=== PATIENT | female | born 1965 | race Two or more races ===

== ENCOUNTER 2020-01-21 09:14 | Outpatient (REF) | payer OTHER, SELFPAY ==
[2020-01-23 18:36] LABS: HPV mRNA E6/E7 rflx Not Detected (Not Detected)
== END 2020-01-21 09:15 | disposition home or self-care (01) ==
LOC: HO.LAB 09:14
PROVIDERS: Visit Provider Obstetrics & Gynecology
DX: Z01.419 Encounter for gynecological examination (general) (routine) without abnormal findings (principal); Z11.51 Encounter for screening for human papillomavirus (HPV)
CPT/HCPCS: 87624; 87625; 88142

== ENCOUNTER 2020-02-21 10:19 | Outpatient (REF) | payer OTHER, SELFPAY ==
--- NOTE | 2020-02-21 10:23 | MM_ITS ---
EXAMINATION: MM SCREENING DIGITAL BREAST TOMOSYNTHESIS, BILATERAL CLINICAL INFORMATION: Screening. Asymptomatic. The lifetime risk of breast cancer based on the Tyrer-Cuzick Model is 15.4%. COMPARISON: Mammography: February 15, 2019 and studies dating back to May 20, 2011 TECHNIQUE: Digital breast tomosynthesis is performed in both the craniocaudal and mediolateral oblique views along with computer-aided detection (CAD). Synthesized 2D images are generated from the tomosynthesis. FINDINGS: The breasts are almost entirely fatty (ACR BI-RADS breast composition Category a). There are no significant masses, abnormal calcifications, or other abnormalities. MM/MM tomosynthesis screening BI IMPRESSION: There are no significant changes from prior study. ASSESSMENT: BI-RADS 1: Negative RECOMMENDATION: Routine annual mammography screening. This patient's information was entered into a reminder system with a target due date for their next mammogram.
== END 2020-02-21 10:20 | disposition home or self-care (01) ==
LOC: HO.MAMMO 10:19
PROVIDERS: PCP Internal Medicine; Visit Provider Internal Medicine
DX: Z12.31 Encounter for screening mammogram for malignant neoplasm of breast (principal)
CPT/HCPCS: 77063; 77067

== ENCOUNTER 2020-03-21 09:45 | Outpatient (REF) | payer OTHER, SELFPAY | END 2020-03-21 09:46 | disposition home or self-care (01) | LOC: HO.LAB 09:45 | PROVIDERS: PCP Internal Medicine; Visit Provider Internal Medicine | DX: Z20.822 Contact with and (suspected) exposure to COVID-19 (principal) | CPT/HCPCS: 36415; C9803; U0003 ==

== ENCOUNTER 2020-03-25 12:17 | Outpatient (REF) | payer OTHER, SELFPAY ==
--- NOTE | 2020-03-25 12:23 | XR_ITS ---
EXAMINATION: XR CERVICAL SPINE XR LUMBAR SPINE CLINICAL INFORMATION: Cervicalgia. Lower back pain. COMPARISON: None. TECHNIQUE: AP, lateral, open-mouth, foraminal, and bilateral oblique views of the cervical spine. AP, lateral, and coned-down views of the lumbar spine. FINDINGS: Cervical Spine: Normal vertebral body alignment. The cervical lordosis is maintained. No acute fracture or subluxation. No loss of vertebral body height. Loss of intervertebral disc height with anterior endplate osteophytes at C5-C6 and C6-C7. No significant neural foraminal stenosis. No lytic or blastic osseous lesion. Unremarkable prevertebral soft tissues. Normal atlantoaxial alignment. Lumbar Spine: Normal vertebral body alignment. The lumbar lordosis is maintained. No acute fracture or subluxation. No loss of vertebral body height. Mild multilevel loss of intervertebral disc height with small anterior endplate osteophytes. Bilateral facet arthropathy at L5-S1. No abnormal soft tissue calcification. XR/XR cervical spine 3V IMPRESSION: CERVICAL SPINE: Moderate degenerative disc disease at C6-C7 with more mild degenerative disc disease at C5-C6. LUMBAR SPINE: Mild multilevel degenerative disc disease. Bilateral facet arthropathy at L5-S1.
--- NOTE | 2020-03-25 12:23 | XR_ITS ---
EXAMINATION: XR SHOULDER, RIGHT XR SHOULDER, LEFT CLINICAL INFORMATION: Right and left shoulder pain. COMPARISON: Right shoulder radiographs dated 12/22/2016. Left shoulder radiographs dated 12/22/2015. TECHNIQUE: AP, Grashey, axillary, and scapular Y views of the right and left shoulder. FINDINGS: Right Shoulder: No acute fracture or dislocation. Small acromioclavicular and glenohumeral marginal osteophytes, slightly more prominent when compared to the prior examination. No osseous erosion. No abnormal soft tissue calcification. Left Shoulder: No acute fracture or dislocation. Small, clavicular marginal osteophytes. No glenohumeral joint space narrowing or marginal osteophytes. No osseous erosion. No abnormal soft tissue calcification. XR/XR shoulder RT min 2V IMPRESSION: RIGHT SHOULDER: Mild acromioclavicular and glenohumeral osteoarthritis, slightly progressed when compared to the prior examination. LEFT SHOULDER: Mild acromioclavicular osteoarthritis, unchanged.
--- NOTE | 2020-03-25 12:23 | XR_ITS ---
EXAMINATION: XR CERVICAL SPINE XR LUMBAR SPINE CLINICAL INFORMATION: Cervicalgia. Lower back pain. COMPARISON: None. TECHNIQUE: AP, lateral, open-mouth, foraminal, and bilateral oblique views of the cervical spine. AP, lateral, and coned-down views of the lumbar spine. FINDINGS: Cervical Spine: Normal vertebral body alignment. The cervical lordosis is maintained. No acute fracture or subluxation. No loss of vertebral body height. Loss of intervertebral disc height with anterior endplate osteophytes at C5-C6 and C6-C7. No significant neural foraminal stenosis. No lytic or blastic osseous lesion. Unremarkable prevertebral soft tissues. Normal atlantoaxial alignment. Lumbar Spine: Normal vertebral body alignment. The lumbar lordosis is maintained. No acute fracture or subluxation. No loss of vertebral body height. Mild multilevel loss of intervertebral disc height with small anterior endplate osteophytes. Bilateral facet arthropathy at L5-S1. No abnormal soft tissue calcification. XR/XR lumbar spine 2-3V IMPRESSION: CERVICAL SPINE: Moderate degenerative disc disease at C6-C7 with more mild degenerative disc disease at C5-C6. LUMBAR SPINE: Mild multilevel degenerative disc disease. Bilateral facet arthropathy at L5-S1.
--- NOTE | 2020-03-25 12:23 | XR_ITS ---
EXAMINATION: XR SHOULDER, RIGHT XR SHOULDER, LEFT CLINICAL INFORMATION: Right and left shoulder pain. COMPARISON: Right shoulder radiographs dated 12/22/2016. Left shoulder radiographs dated 12/22/2015. TECHNIQUE: AP, Grashey, axillary, and scapular Y views of the right and left shoulder. FINDINGS: Right Shoulder: No acute fracture or dislocation. Small acromioclavicular and glenohumeral marginal osteophytes, slightly more prominent when compared to the prior examination. No osseous erosion. No abnormal soft tissue calcification. Left Shoulder: No acute fracture or dislocation. Small, clavicular marginal osteophytes. No glenohumeral joint space narrowing or marginal osteophytes. No osseous erosion. No abnormal soft tissue calcification. XR/XR shoulder LT min 2V IMPRESSION: RIGHT SHOULDER: Mild acromioclavicular and glenohumeral osteoarthritis, slightly progressed when compared to the prior examination. LEFT SHOULDER: Mild acromioclavicular osteoarthritis, unchanged.
== END 2020-03-25 12:18 | disposition home or self-care (01) ==
LOC: HO.XRAY 12:17
PROVIDERS: PCP Internal Medicine; Visit Provider Internal Medicine
DX: M54.2 Cervicalgia (principal); M25.511 Pain in right shoulder; M25.512 Pain in left shoulder; M54.5 Low back pain
CPT/HCPCS: 72040; 72100; 73030

== ENCOUNTER → 2020-07-16 15:03 | Outpatient (BNVA) | payer OTHER, SELFPAY | PROVIDERS: PCP Internal Medicine; Visit Provider Nurse Practitioner Family | DX: Z13.89 Encounter for screening for other disorder (principal) | CPT/HCPCS: 99202 ==

== ENCOUNTER 2020-09-11 10:26 | Outpatient (REF) | payer OTHER, SELFPAY ==
[2020-09-11 11:45] LABS: MANUAL DIFF FLAG NO
[2020-09-11 11:58] LABS: Alanine Aminotransferase 23 U/L (0-31); Albumin Level 4.2 g/dL (3.5-5.0); Alkaline Phosphatase 118 U/L (39-117); Anion Gap 13 (12-20); Aspartate Amino Transferase 19 U/L (5-31); Bilirubin Total 0.4 mg/dL (0.0-1.0); Blood Urea Nitrogen 17 mg/dL (9-16); C Reactive Protein 0.83 mg/dL (< or = 0.50); Calcium 9.4 mg/dL (8.4-10.2); Carbon Dioxide 26 mmol/L (22-29); Chloride 104 mmol/L (96-108); Estimated Glomerular Filt Rate > 60; Glucose Random 149 mg/dL (60-115); Potassium 5.1 mmol/L (3.3-5.1); Sodium 138 mmol/L (135-145); Total Protein 7.2 g/dL (6.5-8.0)
[2020-09-11 12:06] LABS: Basophils Percent Auto 0.4 % (0-2); Eosinophils Absolute Auto 0.4 X10*3/uL (0.0-0.4); Hematocrit 42.9 % (37-47); Hemoglobin 14.3 g/dl (12.0-16.0); Imm Gran Abs Auto 0.01 X10*3/uL (0.00-0.03); Imm Gran Pct Auto 0.1 % (0.0-0.4); Lymphocytes Absolute Auto 2.1 X10*3/uL (1.2-4.9); Lymphocytes Percent Auto 30.3 % (20-40); Mean Corpuscular HGB Conc 33.3 g/dl (31.0-35.0); Mean Corpuscular Volume 89.9 fL (80-98); Mean Platelet Volume 12.8 fL (9.4-12.3); Monocytes Absolute Auto 0.4 X10*3/uL (0.1-1.2); Monocytes Percent Auto 5.5 % (2-11); Neutrophils Absolute Auto 4.1 X10*3/uL (2.0-8.3); Neutrophils Percent Auto 57.7 % (45-73); Platelet Count 216 X10*3/uL (160-400); Red Blood Count 4.77 X10*6/uL (4.20-5.50); Red Cell Distribution Width 12.7 % (11.0-16.0)
[2020-09-11 13:15] LABS: Erythrocyte Sedimentation Rate 16 MM/HR (0-20)
[2020-09-12 15:17] LABS: Cyclic Citrullinated Peptide <16 UNITS
[2020-09-17 14:37] LABS: HLA B27 Negative (Negative)
== END 2020-09-11 10:27 | disposition home or self-care (01) ==
LOC: HO.LAB 10:26
PROVIDERS: PCP Internal Medicine; Visit Provider Internal Medicine
DX: M19.011 Primary osteoarthritis, right shoulder (principal); M19.012 Primary osteoarthritis, left shoulder; M50.30 Other cervical disc degeneration, unspecified cervical region; M51.36 Other intervertebral disc degeneration, lumbar region
CPT/HCPCS: 36415; 80053; 85025; 85652; 86140; 86200; 86812

== ENCOUNTER 2023-06-02 16:15 | Emergency (ER) | payer MEDICAID, SELFPAY ==
--- NOTE | ~2023-06-02 | CT_ITS ---
EXAMINATION: CT CHEST WITHOUT CONTRAST CLINICAL INFORMATION: Left-sided rib pain COMPARISON: Chest radiograph earlier today TECHNIQUE: Multidetector volumetric CT imaging of the chest was done. Axial MIP volume rendering provided. Sagittal and coronal reformatted images were obtained. This CT examination was performed using dose optimization techniques as appropriate, variously including the following: *Automated exposure control *Adjustment of mA and/or kV according to patient size (this includes techniques or standardized protocols for targeted exams where dose is matched to indication/reason for exam; i.e. extremities or head) *Use of iterative reconstruction technique DLP: 278 mGy-cm FINDINGS: LUNGS: There is a 3 mm right upper lobe nodule (5:184) which represents some mucous inspissated within a bronchus. Diffuse peribronchial thickening is present The lungs are clear with no evidence of inflammation or suspicious nodules. MEDIASTINUM: The mediastinum is normal. CORONARY ARTERY CALCIFICATION: None visualized on this study. PLEURA: There is no pleural effusion. No pleural mass or thickening. AXILLA: No lymphadenopathy. UPPER ABDOMEN: Spleen is enlarged at 12.4 cm. Gallstones are present in the partially visualized gallbladder. These have been seen on prior imaging exams. OSSEOUS STRUCTURES: There is a nondisplaced fracture of the left seventh anterolateral rib (5:406). This is most apparent when one scrolls through the images. No other rib fractures are seen. CT/CT chest wo IV con IMPRESSION: 1. Nondisplaced left seventh anterolateral rib fracture. 2. Incidental note made of cholelithiasis and mild splenomegaly. Fleischner guidelines were followed.
--- NOTE | ~2023-06-02 | XR_ITS ---
EXAMINATION: XR CHEST CLINICAL INFORMATION: SOB and fall. COMPARISON: None available. TECHNIQUE: Frontal view of the chest was obtained. FINDINGS: No significant abnormality is noted involving the heart, lungs, mediastinum, bony thorax or soft tissues. XR/XR chest 1V IMPRESSION: Unremarkable chest examination.
--- NOTE | 2023-06-02 17:22 | ED_ITS ---
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 Patient reports that she was walking her dogs just prior to arrival. She states that the dog's tried to run after another dog This caused the patient to lunge forward and lose her balance. She landed on the left side of her chest on the pavement She complains that she can not catch her breath completely She also injured both of her knees She denies hitting her head or losing consciousness She is not anticoagulated No other complaints or concerns at this time Related Data Home Medications Medication Instructions Recorded Confirmed betamethasone dipropionate 0.05 % applic topical BID PRN 01/21/20 10/01/20 topical cream hydrocortisone 0.5 % topical cream applic topical BID PRN 01/21/20 10/01/20 hydroxyzine HCl 25 mg tablet 25 mg PO Q8H PRN itch 01/21/20 10/01/20 acetaminophen 500 mg tablet 500 mg PO Q6H PRN pain 03/18/20 10/01/20 Previous Rx's Medication Instructions Recorded gabapentin 100 mg capsule 100 mg PO TID 30 days #90 caps 06/24/20 omeprazole 40 mg capsule,delayed 40 mg PO DAILY 30 days #30 caps 06/24/20 release tizanidine 2 mg tablet 2 mg PO BEDTIME #30 tabs 07/16/20 tramadol 50 mg tablet 50 mg PO Q6H PRN pain #12 tabs 06/02/23 Allergies Allergy/AdvReac Type Severity Reaction Status Date / Time hazelnut [HAZELNUT] Allergy Unknown ANGIOEDEMA, Verified 06/02/23 17:23 NUMBNESS ibuprofen [From MOTRIN] Allergy Unknown RASH, Verified 06/02/23 17:23 FACIAL SWELLING, anaphylaxis, face swelling peanut [PEANUT] Allergy Unknown SWELLING Verified 06/02/23 17:23 Review of Systems Constitutional: Constitutional: Denies chills, Denies fever(s), Denies frequent falls and Denies headache(s) Eyes: Eyes: Denies blurry vision ENT: Denies headache(s) Cardiovascular: Cardiovascular: Reports chest pain and Reports dyspnea Respiratory: Respiratory: Denies cough and Reports dyspnea Gastrointestinal: Gastrointestinal: Denies abdominal pain, Denies nausea and Denies vomiting Musculoskeletal: Musculoskeletal: Denies back pain Integumentary/Breasts: Skin/Breast: Denies rash Neurologic: Denies frequent falls and Denies headache(s) [facility] Past Medical History Medical History (Updated 06/02/23 @ 21:03 by Royer Smith) GERD without esophagitis Left lateral epicondylitis Bilateral acromioclavicular joint arthritis Lumbar degenerative disc disease Degenerative disc disease, cervical Obesity (BMI 30-39.9) Surgical History History of section History of colonoscopy History of tubal ligation Family History Family History Father No problems noted. Mother Breast cancer Uterine cancer Maternal Aunt Breast cancer Maternal Grandmother Breast cancer Social History Social History Housing: Apartment Alcohol intake: never Patient Tobacco Use Status: Never used Tobacco Second Hand Smoke Exposure: No Advance Directives: No Advance Directives Information Provided: No service: No Current occupational status: unemployed and disabled Sexual orientation: Straight/Heterosexual Gender identity: Female Physical Exam ED Vital Signs: Vital Signs - 24 hr 06/02/23 17:23 Temperature 97.6 F Pulse Rate 80 Respiratory Rate 16 Blood Pressure 159/83 H Pulse Oximetry 99 Oxygen Delivery Method Room Air BMI result Body Mass Index 32.3 Const General: healthy appearing, comfortable, no acute distress, alert and awake Nutritional Appearance: well nourished Orientation/consciousness: patient oriented x3 HENMT Head: Yes normocephalic and Yes atraumatic Eyes Eyelids: Yes eyelids normal Conjunctivae: conjunctivae normal Sclerae: sclerae normal Corneas: corneas normal Pupils: Equal, round and reactive pupils present EOM: EOMs intact bilaterally Neck Neck: Yes full ROM Chest Other: Tenderness in the left anterior chest wall at the level of the 7th through 9th ribs in the anterior axillary line. No overlying bruising, hematoma or wounds Chest palpation & inspection: normal inspection of the chest and no crepitus Resp Effort & Inspection: normal respiratory effort, able to speak in complete se ntences, no audible wheezes and not labored Auscultation: clear to auscultation bilaterally GI Inspection: No distended Palpation (GI): Soft to palpation, not firm, nontender, no guarding and not rigid Skin General skin exam: elasticity normal Neuro General: patient oriented x3 Cranial nerves: Yes Equal, round and reactive pupils present and Yes Bilaterally intact EOM present Cognition (Neuro): normal cognition Extrem Other: Moving all extremities well without any obvious deformities Course Course Course Narrative: This is an RME: Additional HPI, ROS, PE not included below will be deferred to primary provider. 57 year old female presents s/p fall onto left side of chest. Was walking the dog and the dog started fighting another dog and pulled her causing her to land on left chest. Plan- imaging Medical Decision Making Medical Decision Making MDM Narrative: Patient is quite well appearing, she is slightly hypertensive and tachycardic likely related to her degree of pain. Her x-ray of the chest did not show any evidence of pneumothorax. A CT scan was ordered in triage which shows a nondisplaced fracture of the left 7th anterior lateral rib. There is incidental finding of gallstones. Will treat the patient's discomfort with Zofran and tramadol Differential Diagnosis Differential Diagnoses: The differential diagnosis associated with the presentation includes Contusion Rib fracture Pneumothorax Pulmonary contusion Independent Interpretation I performed an independent interpretation of an: Plain X-Ray (No pneumothorax) and CT Scan (Agree with Radiology interpretation, nondisplaced left 7th rib fracture) Radiology Impression Discussion of test interpretation with radiology: I have reviewed the radiologist's reading. (Unremarkable chest examination) Radiologist Impression: Nondisplaced left anterior lateral rib fracture Discharge Plan Discharge Clinical Impression: Left rib fracture Qualifiers: Encounter type: initial encounter Rib fracture type: single rib Fracture type: closed Qualified Code(s): S22.32XA - Fracture of one rib, left side, initial encounter for closed fracture Patient Disposition: Home, Self-Care Instructions: Rib Fracture (ED) Additional Instructions: You have 1 rib fracture to the 7th rib in the area of your pain. This is nondisplaced and will heal well on its own Take Tylenol as needed for pain. You may use tramadol for more severe breakthrough pain This may make you sleepy, do not drink alcohol or drive after taking it Follow-up with your primary doctor Return for new or worsening symptoms Prescriptions: New tramadol 50 mg tablet 50 mg PO Q6H PRN (Reason: pain) Qty: 12 0RF No Action gabapentin 100 mg capsule 100 mg PO TID 30 Days Qty: 90 3RF omeprazole 40 mg capsule,delayed release(DR/EC) 40 mg PO DAILY 30 Days Qty: 30 3RF betamethasone dipropionate 0.05 % cream topical BID PRN hydrocortisone 0.5 % cream topical BID PRN hydroxyzine HCl 25 mg tablet 25 mg PO Q8H PRN (Reason: itch) acetaminophen 500 mg tablet 500 mg PO Q6H PRN (Reason: pain) tizanidine 2 mg tablet 2 mg PO BEDTIME Qty: 30 0RF Rx Instructions: start with 1/2 tab, as medication can be sedating
[2023-06-02 17:23] VITALS: BP 159/83; PULSE 80; RESP 16; TEMP 36.4; O2SAT 99; BMI 32.3
[2023-06-02] MEDS: Ondansetron ODT 4 MG TAB.RAPDIS TRANSLINGU (21:22)
[2023-06-02] MEDS: traMADoL HCL 50 MG TABLET PO (21:22)
[2023-06-02 21:26] VITALS: BP 131/88; PULSE 82; RESP 16; TEMP 36.4; O2SAT 96
[2023-06-02 22:25] VITALS: BP 131/88; PULSE 82; RESP 16; TEMP 36.4
== END 2023-06-02 22:25 | disposition home or self-care (01) ==
PROVIDERS: Emergency Provider Internal Medicine
DX: S22.32XA Fracture of one rib, left side, initial encounter for closed fracture (principal); R07.89 Other chest pain; W01.10XA Fall on same level from slipping, tripping and stumbling with subsequent striking against unspecified object, initial encounter; Y93.K1 Activity, walking an animal; Y92.480 Sidewalk as the place of occurrence of the external cause; Y99.8 Other external cause status
CPT/HCPCS: 71045; 71250; 99284

== ENCOUNTER 2023-06-09 12:23 | Outpatient (AMB) | payer OTHER, SELFPAY ==
[2023-06-09 12:29] VITALS: BP 142/84; BMI 31.9
--- NOTE | 2023-06-09 12:29 | A.OFFPC_ITS ---
Vital Signs 06/09/23 12:29 Height 5 ft 3 in Weight 180 lb BMI 31.9 BP 142/84 H Blood Pressure Location Lt brachial Position Sitting Intake Visit Reasons: New patient, Establishing care Intake Note: New patient, [facility] follow up 06/01 fractured rib due to fall Home Care Provider Required: No Accompanied by: Self / Same As Patient Allergies tramadol Allergy (Severe, Verified 06/09/23 12:53) rash hazelnut [HAZELNUT] Allergy (Unknown, Verified 06/09/23 12:53) ANGIOEDEMA, NUMBNESS ibuprofen [From MOTRIN] Allergy (Unknown, Verified 06/09/23 12:53) RASH, FACIAL SWELLING, anaphylaxis, face swelling peanut [PEANUT] Allergy (Unknown, Verified 06/09/23 12:53) SWELLING Medication List - Last Reconciled 06/09/23 by Kimmie Wisdom MD acetaminophen 500 mg PO Q6H PRN omeprazole 40 mg PO DAILY 30 days Tobacco use date assessed: 06/09/23 Dental Screening Dental Screen Date: 06/09/23 Did you have a dental visit in the last 12 months?: Yes Did you have a dental problem in the last 6 months where you did not have access to dental care?: No Was dental information given to patient?: Patient has dentist HPI HPI Comments History of Present Illness Details This is a 57-year-old female with GERD without esophagitis and mild persistent asthma that comes today as hospital discharge follow-up with discharge date 06/02/2023 due to left rib fracture secondary to trauma. Chest x- ray showed no pneumothorax at the hospital and chest CT showed nondisplaced left 7 rib fracture with incidental cholelithiasis. Was given tramadol but developed a rash. I will give 7 days for oxycodone which he is aware can cause addiction and sedation. This will not be refill. She is able to take a deep breath even though she is in pain. GERD stable with PPIs. She is wheezing and has a dry cough due to asthma. Will order rescue inhaler. Also has some allergic rhinitis and will order cetirizine for allergies. [facility] Medical History (Updated 06/09/23 @ 13:36 by Kimmie Wisdom MD) GERD without esophagitis Left lateral epicondylitis Bilateral acromioclavicular joint arthritis Lumbar degenerative disc disease Degenerative disc disease, cervical Obesity (BMI 30-39.9) Surgical History History of colonoscopy History of tubal ligation History of section Family History Father No problems noted. Mother Breast cancer Uterine cancer Maternal Aunt Breast cancer Maternal Grandmother Breast cancer Social History Housing: Apartment Alcohol intake: never Patient Tobacco Use Status: Never used Tobacco e-Cigarette/Vaping Use: Never Used Second Hand Smoke Exposure: No service: No Current occupational status: unemployed Sexual orientation: Straight/Heterosexual Gender identity: Female Cognitive needs: No Hearing needs: No Vision needs: Yes Questionnaire PHQ-9 Over the last 2 weeks, how often have you been bothered by any of the following problems? 1. Little interest or pleasure in doing things: several days 2. Feeling down, depressed, or hopeless: nearly every day 3. Trouble falling or staying asleep, or sleeping too much: nearly every day 4. Feeling tired or having little energy: nearly every day 5. Poor appetite or overeating: not at all 6. Feeling bad about yourself - or that you are a failure or have let yourself or your family down: not at all 7. Trouble concentrating on things, such as reading the newspaper or watching television: not at all 8. Moving or speaking so slowly that other people could have noticed. Or the opposite - being so fidgety or restless that you have been moving around a lot more than usual: not at all 9. Thoughts that you would be better off or of hurting yourself in some way: not at all Total score: 10 Depression Screening Interpretation: Positive Depression Screening Done: Yes 05632 - PHQ-9 Billing: Yes Source: Developed by Drs. Bin Carpenter, Cari Burk, Elieser Yanes and colleagues, with an educational chanell from [employer] & other things you bake. Thrive Questionnaire Date Thrive assessed: 06/09/23 I am a: Patient Within the past 12 months, did the food you bought not last and you didn't have the money to get more?: Never true Within the past 12 months, did you worry whether your food would run out before you got money to buy more?: Never true Do you have trouble paying for medicines?: No Do you have trouble getting transportation to medical appointments?: No Do you have trouble paying your heating and electricity bill?: No Do you have trouble taking care of your child, family member or friend?: No Do you have trouble with day-to-day activities such as bathing, preparing meals, shopping, managing finances, etc.?: No Are you currently unemployed and looking for a job?: No Are you interested in more education?: No Please select the resources that you would like help with: None Currently or been in a relationship where the following occur: no concerns reported THRIVE Score: 0 AUDIT C Alcohol Use Questionnaire (AUDIT-C) 1. How often do you have a drink containing alcohol?: Never Total Score: 0 Score Reviewed/Action Taken: No FAIZA-7 AMB Questionnaire FAIZA-7 Date FAIZA - 7 assessed: 06/09/23 Feeling nervous, anxious, or on edge: 3 = Nearly every day Not being able to stop or control worryin = Nearly every day Worrying too much about different things: 3 = Nearly every day Trouble relaxin = More than half the days Being so restless that it is hard to sit still: 0 = Not at all Becoming easily annoyed or irritable: 1 = Several days Feeling afraid as if something awful might happen: 1 = Several days Total FAIZA-7 score (0-4 normal; 5-9 mild; 10-14 moderate; 15-21 severe): 13 Source: Developed by Drs. Bin Carpenter, Cari Burk, Elieser Yanes and colleagues, with an educational chanell from [employer] & other things you bake. FAIZA-7 Assessment Billing FAIZA-7 Assessment Tool: FAIZA-7 Assessment 67773 Review of Systems Const All systems reviewed & are unremarkable except as noted in HPI and below Eyes Reports no additional complaints, Denies change in vision and Denies other visual disturbances Card Denies chest pain at rest, Denies chest pain with activity, Denies edema, Denies irregular heart rhythm, Denies claudication, Denies dyspnea, Denies dyspnea on exertion, Denies orthopnea, Denies paroxysmal nocturnal dyspnea and Denies slow heart rate Resp Denies cough, Denies dyspnea and Denies dyspnea on exertion Physical exam (Primary Care) Vital Signs: Last Vital Signs BP 142/84 H 06/09/23 12:29 BMI result Body Mass Index 31.9 Tobacco/Smoking Status: Tobacco use Status Tobacco use date assessed 06/09/23 06/09/23 12:42 Patient Tobacco Use Status Never used Tobacco 06/09/23 12:31 e-Cigarette/Vaping Use Never Used 06/09/23 12:42 Depression Screening Interpretation: Positive Thrive Assessment: Date of Thrive Assessment Date Thrive assessed 06/09/23 06/09/23 12:42 Currently or been in a relationship where the following occur: no concerns reported Resp Effort & Inspection: normal respiratory effort Auscultation: clear to auscultation bilaterally Cardio Jugular venous distension: no JVD Rate: regular rate Rhythm: regular rhythm Heart sounds: S1 normal heart sound present and S2 normal heart sound present Extrem General: Yes full ROM Psych Appearance: grossly normal Assessment and Plan Assessment & Plan (1) Hospital discharge follow-up: Code(s): Z09 - Encounter for follow-up examination after completed treatment for conditions other than malignant neoplasm Plan: Discharge date 06/02/2023 due to left rib fracture. This was shown in chest CT. Given tramadol that turned out to be allergic to. Still in pain. (2) Rib fracture: Code(s): S22.39XA - Fracture of one rib, unspecified side, initial encounter for closed fracture Plan: Start oxycodone for a week only. (3) Mild persistent asthma, uncomplicated: Code(s): J45.30 - Mild persistent asthma, uncomplicated Plan: Use rescue inhaler as needed. (4) Cholelithiasis: Code(s): K80.20 - Calculus of gallbladder without cholecystitis without obstruction Plan: Ultrasound of the abdomen ordered. (5) GERD without esophagitis: Code(s): K21.9 - Gastro-esophageal reflux disease without esophagitis Plan: Continue PPIs. (6) Seasonal allergic rhinitis due to pollen: Code(s): J30.1 - Allergic rhinitis due to pollen Plan: Start cetirizine as needed. Orders: Orders US abdomen complete Today K80.20 - Calculus of gallbladder without cholecystitis without obstruction Medications: New oxycodone Partial Fill upon patient request. 5 mg PO Q8H 7 days PRN 20 tabs 0RF pain Ventolin HFA 90 mcg/actuation (albuterol sulfate) 2 puffs inhalation Q6H 30 days PRN 8 grams 1RF shortness of breath or wheezing NS J45.30 - Mild persistent asthma, uncomplicated Coding Level of Care Code TCM Mod MDM <= 7 Days Diagnoses Hospital discharge follow-up Z09 Rib fracture S22.39XA Mild persistent asthma, uncomplicated J45.30 Cholelithiasis K80.20 GERD without esophagitis K21.9 Seasonal allergic rhinitis due to pollen J30.1 Additional Codes FAIZA-7 Assessment Billing - FAIZA-7 Assessment Tool: FAIZA-7 Assessment 80222 ([id number]) Time Spent (min) 22
== END 2023-06-09 13:00 | disposition home or self-care (01) ==
PROVIDERS: Visit Provider Internal Medicine
DX: S22.32XA Fracture of one rib, left side, initial encounter for closed fracture (principal); K80.20 Calculus of gallbladder without cholecystitis without obstruction; J45.30 Mild persistent asthma, uncomplicated; K21.9 Gastro-esophageal reflux disease without esophagitis; J30.1 Allergic rhinitis due to pollen
CPT/HCPCS: 99214

== ENCOUNTER 2023-06-22 08:07 | Outpatient (REF) | payer OTHER, SELFPAY ==
--- NOTE | ~2023-06-22 | US_ITS ---
EXAMINATION: US ABDOMEN COMPLETE CLINICAL INFORMATION: Calculus of gallbladder without cholecystitis without obstruction. COMPARISON: CT chest 06/02/2023. Ultrasound abdomen 07/27/2018. TECHNIQUE: Real-time imaging of the abdominal viscera. FINDINGS: PANCREAS: Normal. ABDOMINAL AORTA: The proximal, mid, and distal segments are normal in caliber. INFERIOR VENA CAVA: Visualized portions are normal. LIVER: The liver is normal in size. The liver contour is normal. Parenchymal echogenicity is normal. No focal hepatic lesion. There is no intrahepatic biliary duct dilatation seen. GALLBLADDER: Wall echo shadow complex consistent with numerous gallstones. No gallbladder wall thickening or pericholecystic fluid. COMMON BILE DUCT: Normal in caliber measuring 0.3 cm in diameter. RIGHT KIDNEY: Normal. No hydronephrosis. No renal calculi or focal parenchymal lesions. The kidney measures 10.0 cm in maximum dimension. LEFT KIDNEY: Normal. No hydronephrosis. No renal calculi or focal parenchymal lesions. The kidney measures 9.7 cm in maximum dimension. SPLEEN: Normal. The spleen measures 9.2 cm in maximum dimension. FREE FLUID: None. US/US abdomen complete IMPRESSION: Cholelithiasis without evidence of acute cholecystitis.
== END 2023-06-22 08:08 | disposition home or self-care (01) ==
LOC: HO.US 08:07
PROVIDERS: PCP Internal Medicine; Visit Provider Internal Medicine
DX: K80.20 Calculus of gallbladder without cholecystitis without obstruction (principal)
CPT/HCPCS: 76700

== ENCOUNTER 2023-07-05 13:17 | Outpatient (AMB) | payer OTHER, SELFPAY ==
--- NOTE | 2023-07-05 13:18 | A.OFFVIS_ITS ---
Vital Signs 07/05/23 13:24 Height 5 ft 3 in Weight 186 lb BMI 32.9 BP 136/71 Blood Pressure Location Lt brachial Position Sitting Pulse 69 Intake Visit Reasons: Calculus of gallbladder Intake Note: Patient referred by PCP Dr. Basil Wisdom for calculus of gallbladder. Patient c/o: on and off abd pain that gets worse after eating certain foods. ABD US: 06-22-2023. Talent Advisor Required: No Accompanied by: Celia daughter in law Allergies tramadol Allergy (Severe, Verified 07/05/23 13:22) rash hazelnut [HAZELNUT] Allergy (Unknown, Verified 07/05/23 13:22) ANGIOEDEMA, NUMBNESS ibuprofen [From MOTRIN] Allergy (Unknown, Verified 07/05/23 13:22) RASH, FACIAL SWELLING, anaphylaxis, face swelling peanut [PEANUT] Allergy (Unknown, Verified 07/05/23 13:22) SWELLING HPI Comments Details: Patient presents with her [id number] with a complaint of epigastric/right upper quadrant pain times many years time , related to diet of fatty foods. She has had extensive workup for this including recent sonogram demonstrated cholelithiasis. Patient otherwise has regular bowel habits. She has never been jaundiced before. Chart was reviewed and patient evaluated. Past surgical history [facility] Medical History GERD without esophagitis Left lateral epicondylitis Bilateral acromioclavicular joint arthritis Lumbar degenerative disc disease Degenerative disc disease, cervical Obesity (BMI 30-39.9) Surgical History History of colonoscopy History of tubal ligation History of section Family History Father No problems noted. Mother Breast cancer Uterine cancer Maternal Aunt Breast cancer Maternal Grandmother Breast cancer Social History Housing: Apartment Alcohol intake: never Patient Tobacco Use Status: Never used Tobacco e-Cigarette/Vaping Use: Never Used Second Hand Smoke Exposure: No service: No Current occupational status: unemployed Sexual orientation: Straight/Heterosexual Gender identity: Female Cognitive needs: No Hearing needs: No Vision needs: Yes Physical Exam Vital Signs: Last Vital Signs Pulse 69 07/05/23 13:24 BP 136/71 07/05/23 13:24 BMI result Body Mass Index 32.9 Chest Other: Chest breath sounds bilaterally, HS 1 in 2 GI Other: Abdomen is soft, corpulent, benign Assessment & Plan Assessment & Plan (1) Recurrent biliary colic: Code(s): K80.50 - Calculus of bile duct without cholangitis or cholecystitis without obstruction Category: Surgical (2) Cholelithiasis: Code(s): K80.20 - Calculus of gallbladder without cholecystitis without obstruction Category: Surgical Plan Risks, benefits, alternatives laparoscopic possible open cholecystectomy reviewed with the patient and included but not limited to bleeding, infection, recurrence of symptoms, numbness, pain, scarring, bowel or bile duct injury or leak and the patient wishes to proceed. All questions answered. Arrangements were made for this. Coding Level of Care Code New Pt Level 5 (81680) Diagnoses Recurrent biliary colic K80.50 Cholelithiasis K80.20
[2023-07-05 13:24] VITALS: BP 136/71; PULSE 69; BMI 32.9
== END 2023-07-05 13:30 | disposition home or self-care (01) ==
PROVIDERS: PCP Internal Medicine; Referring Provider Internal Medicine; Visit Provider Surgery
DX: K80.50 Calculus of bile duct without cholangitis or cholecystitis without obstruction (principal); K80.20 Calculus of gallbladder without cholecystitis without obstruction
CPT/HCPCS: 99204

== ENCOUNTER → 2023-07-05 13:17 | Outpatient (BNVA) | payer OTHER, SELFPAY | PROVIDERS: PCP Internal Medicine; Referring Provider Internal Medicine; Visit Provider Surgery | DX: K80.20 Calculus of gallbladder without cholecystitis without obstruction (principal); K80.50 Calculus of bile duct without cholangitis or cholecystitis without obstruction | CPT/HCPCS: 99202 ==

== ENCOUNTER 2023-07-21 07:46 | Day surgery (SDC) | payer OTHER, SELFPAY ==
[2023-07-19 11:19] VITALS: BMI 32.9
--- NOTE | 2023-07-20 15:17 | MHC.SHP ---
Pre-Procedural Eval Section A - 24 Hr Update-Section A only Date of Service: 07/20/23 The patient is an INPATIENT: No Changes since office visit: No Cold of Flu in the past 2 weeks, No New Medical Problems, No Changes in Medication and No Patient answered all questions Section B - Complete if H&P > 30 days Chief Complaint: Calculus bile duct and gallbladder w/ cholangitis, Allergies: Allergies Allergy/AdvReac Type Severity Reaction Status Date / Time hazelnut [HAZELNUT] Allergy Severe ANGIOEDEMA, Verified 07/19/23 11:19 NUMBNESS ibuprofen [From MOTRIN] Allergy Severe RASH, Verified 07/19/23 11:19 FACIAL SWELLING, anaphylaxis, face swelling peanut [PEANUT] Allergy Severe SWELLING Verified 07/19/23 11:19 tramadol Allergy Severe rash Verified 07/05/23 13:22 Plan I have reviewed the history and physical and performed a pertinent physical examination on my patient. No changes have occurred unless specified. Time Spent With Patient Time: Total time managing care of this patient today ____ minutes.
[2023-07-21] VITALS (10 sets, daily range): BP systolic 117–155; BP diastolic 50–81; PULSE 60–79; RESP 10–18; TEMP 36.1–36.6; O2SAT 80–100; BMI 32.4
[2023-07-21] MEDS: Lactated Ringers 1,000 ML 100 ML IVCONT (08:24)
--- NOTE | 2023-07-21 09:00 | HO.ANESPROP2 ---
Documented by User: Ching Solorio NP 07/20/23 09:27 HPI - Anesthesia Eval Consult details Narrative: 57yo F for Cholecystectomy Laparoscopic possible open PMFSH Active Problems Active Problems: All Active Problems Recurrent biliary colic (Acute) Seasonal allergic rhinitis due to pollen (Acute) Rib fracture (Acute) Hospital discharge follow-up (Acute) Mild persistent asthma, uncomplicated (Acute) Cholelithiasis (Acute) Osteoarthritis of shoulders, bilateral (Acute) Asthma (Acute) Well woman exam with routine gynecological exam (Acute) GERD without esophagitis (Acute) Left lateral epicondylitis (Acute) Bilateral acromioclavicular joint arthritis (Acute) Lumbar degenerative disc disease (Acute) Degenerative disc disease, cervical (Acute) Obesity (BMI 30-39.9) (Acute) Past Medical History Medical History Arthritis Asthma GERD without esophagitis Left lateral epicondylitis Bilateral acromioclavicular joint arthritis Lumbar degenerative disc disease Degenerative disc disease, cervical Obesity (BMI 30-39.9) Family History Family History Father No problems noted. Mother Breast cancer Uterine cancer Maternal Aunt Breast cancer Maternal Grandmother Breast cancer Surgical History Surgical History History of colonoscopy History of tubal ligation History of section Social History Social History Housing: Apartment Alcohol intake: never Patient Tobacco Use Status: Never used Tobacco e-Cigarette/Vaping Use: Never Used Second Hand Smoke Exposure: No Use of substances other than those prescribed or required for medical reasons: No Are you DNR?: No Advance Directives: No Advance Directives Information Provided: Yes service: No Current occupational status: unemployed Sexual orientation: Straight/Heterosexual Gender identity: Female Cognitive needs: No Hearing needs: No Vision needs: Yes Meds Allergies Allergy/AdvReac Type Severity Reaction Status Date / Time hazelnut [HAZELNUT] Allergy Severe ANGIOEDEMA, Verified 07/21/23 08:04 NUMBNESS ibuprofen [From MOTRIN] Allergy Severe RASH, Verified 07/21/23 08:04 FACIAL SWELLING, anaphylaxis, face swelling peanut [PEANUT] Allergy Severe SWELLING Verified 07/21/23 08:04 tramadol Allergy Severe rash Verified 07/21/23 08:04 Home Medications ?Medication ?Instructions ?Recorded ?Confirmed ?Last Taken ?Type acetaminophen 500 mg tablet 500 mg PO Q6H PRN pain 03/18/20 07/21/23 Unknown History Exam Height,Weight and Vital Signs: Height 5 ft 3 in Weight 84.368 kg Assessment and Plan Assessment Anesthesia Assessment: Chart Reviewed Documented by User: Priyanka Prieto DO 07/21/23 09:24 [facility] Past Medical History Medical History Arthritis Asthma GERD without esophagitis Left lateral epicondylitis Bilateral acromioclavicular joint arthritis Lumbar degenerative disc disease Degenerative disc disease, cervical Obesity (BMI 30-39.9) Family History Family History Father No problems noted. Mother Breast cancer Uterine cancer Maternal Aunt Breast cancer Maternal Grandmother Breast cancer Family history of problems with anesthesia: No Surgical History Surgical History History of colonoscopy History of tubal ligation History of section History of Problems with Anesthesia: No Social History Social History Housing: Apartment Alcohol intake: never Patient Tobacco Use Status: Never used Tobacco e-Cigarette/Vaping Use: Never Used Second Hand Smoke Exposure: No Use of substances other than those prescribed or required for medical reasons: No Are you DNR?: No Advance Directives: No Advance Directives Information Provided: Yes service: No Current occupational status: unemployed Sexual orientation: Straight/Heterosexual Gender identity: Female Cognitive needs: No Hearing needs: No Vision needs: Yes Meds Allergies Allergy/AdvReac Type Severity Reaction Status Date / Time hazelnut [HAZELNUT] Allergy Severe ANGIOEDEMA, Verified 07/21/23 08:04 NUMBNESS ibuprofen [From MOTRIN] Allergy Severe RASH, Verified 07/21/23 08:04 FACIAL SWELLING, anaphylaxis, face swelling peanut [PEANUT] Allergy Severe SWELLING Verified 07/21/23 08:04 tramadol Allergy Severe rash Verified 07/21/23 08:04 Home Medications ?Medication ?Instructions ?Recorded ?Confirmed ?Last Taken ?Type acetaminophen 500 mg tablet 500 mg PO Q6H PRN pain 03/18/20 07/21/23 Unknown History Exam Exam Date and Time: July 21, 2023 09 Height,Weight and Vital Signs: Height 5 ft 3 in Weight 84.368 kg Height 5 ft 3 in Weight 83.007 kg Vital Signs Temperature 97.8 F 07/21/23 08:09 Pulse Rate 79 07/21/23 08:09 Respiratory Rate 15 07/21/23 08:09 Blood Pressure 155/81 H 07/21/23 08:09 Pulse Oximetry 100 07/21/23 08:09 Oxygen Delivery Method Room Air 07/21/23 08:09 Temperature 97.8 F 07/21/23 08:09 Pulse Rate 79 07/21/23 08:09 Respiratory Rate 15 07/21/23 08:09 Blood Pressure 155/81 H 07/21/23 08:09 Pulse Oximetry 100 07/21/23 08:09 Oxygen Delivery Method Room Air 07/21/23 08:09 Airway Mallampati Class: II TM Dist: >3cm Neck ROM: Full Loose/Missing/Broken Teeth: Yes (some missing teeth but patient denies any loose or broken teeth) Heart: S1S2 Lungs: CTAB Assessment and Plan Assessment Anesthesia Assessment: Anesthesia Plan Discussed and Chart Reviewed Final Anesthetic Review Family History of Problems with Anesthesia: No History of Problems with Anesthesia: No NPO: Yes ASA Class: II Final Preanesthetic Review: No Changes in Pt Med Stat, Meds/Allgs Chart Reviewed, Consent Obtained/Reviewed (historic interpreter at bedside for translation) and Anes Risks/Benef Reviewed Patient Risk: Low Procedure Risk: Low Anesthetic Plan Anesthetic Plan: GA and Agree w/ Assess. and Plan Disposition: Standard PACU
--- NOTE | 2023-07-21 12:50 | P.OP_ITS ---
Operative Note Operative Note Date of Service: 07/21/23 Narrative: Preoperative diagnosis: [] Recurrent biliary colic Postop diagnosis: [] The same Procedure [] laparoscopic cholecystectomy Surgeon: [] [employer] Program Manager: [] Type of Anesthesia: [] General Indication for surgery: [] Very corpulent abdomen. Gallbladder with multiple gallstones. Omental adhesions to the gallbladder. Findings: [Patient was brought to the operating room, placed on operative table in supine position, and after an adequate level of general anesthesia was induced, the patient's abdomen was prepped and draped in usual sterile fashion. Using a supraumbilical curvilinear incision, Serrano technique was used to insufflate abdominal cavity to 15 mm of CO2. Upper midline and right subcostal ports were placed under direct laparoscopic view, the patient placed in reverse Trendelenburg position, and tilted to the left. Findings were as noted above. Gallbladder was grasped using laparoscopic graspers and retracted superiorly and laterally. Omental adhesions swept off the gallbladder were its hilum was approached. Common bile duct was identified and preserved throughout the procedure. Cystic artery and cystic duct were each identified, circumferentially skeletonized, each traced directly into the gallbladder, and critical view obtained. Each was clipped proximally x2, distally x1, and transected. Gallbladder was then cauterized from the gallbladder fossa using Bovie. Specimen was placed in an Endo-Catch bag, a retrieved through the umbilical port. Abdominal cavity was copiously irrigated and secured hemostasis. All ports removed under direct laparoscopic view. Wounds were c losed in the following manner; umbilical wound has fascia reapproximated using interrupted 0 Vicryl sutures. Skin wounds were closed using subcuticular 4-0 Vicryl sutures followed by Steri-Strips and sterile dressings. Wounds were infiltrated 0.5% Marcaine with epinephrine at completion. Sponge, needle, and instrument counts reported correct. Patient tolerated the procedure well and emerged from anesthesia stable condition. EBL minimal
[2023-07-21] MEDS: Haloperidol Lactate 5 MG/ML VIAL 1 MG IVPUSH (13:11)
[2023-07-21] MEDS: fentaNYL citrate/PF 100 MCG/2 ML VIAL 50 MCG IVPUSH (13:23)
[2023-07-21] MEDS: oxyCODONE HCl Immed Release 5 MG TABLET PO (14:00)
== END 2023-07-21 15:04 | disposition home or self-care (01) ==
PROVIDERS: PCP Internal Medicine; Visit Provider Surgery
PROC: 0FT44ZZ Resection of Gallbladder, Percutaneous Endoscopic Approach (ICD-10-PCS; CPT 47562; principal; 2023-07-21 10:00)
DX: K80.10 Calculus of gallbladder with chronic cholecystitis without obstruction (principal); K82.8 Other specified diseases of gallbladder; K21.9 Gastro-esophageal reflux disease without esophagitis; E66.9 Obesity, unspecified; Z68.32 Body mass index [BMI] 32.0-32.9, adult; Z88.8 Allergy status to other drugs, medicaments and biological substances; Z88.6 Allergy status to analgesic agent; Z91.010 Allergy to peanuts; Z56.0 Unemployment, unspecified
CPT/HCPCS: 47562; 88304; J0690; J1630; J2250; J2405; J2704; J2795; J3010

== ENCOUNTER → 2023-07-21 07:46 | Outpatient (BNV) | payer OTHER, SELFPAY | PROVIDERS: PCP Internal Medicine; Visit Provider Surgery | DX: K80.50 Calculus of bile duct without cholangitis or cholecystitis without obstruction (principal) | CPT/HCPCS: 47562 ==

== ENCOUNTER 2023-08-01 13:22 | Outpatient (AMB) | payer OTHER, SELFPAY ==
--- NOTE | 2023-08-01 13:45 | A.OFFVIS_ITS ---
Intake Visit Reasons: S/P lap shaun Intake Note: Patient here s/p lap shaun. Reports incisions healing well. Patient c/o: reports rxn to rx pain meds. Experienced redness, feeling sensation to face. SX: 07-21-23. 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 She has minimal incisional discomfort. She has tolerating a diet. She is having regular bowel habits. Patient is increasing her activity level and taking walks. [facility] Medical History Arthritis Asthma GERD without esophagitis Left lateral epicondylitis Bilateral acromioclavicular joint arthritis Lumbar degenerative disc disease Degenerative disc disease, cervical Obesity (BMI 30-39.9) Surgical History History of laparoscopic cholecystectomy (07/21/23) History of colonoscopy History of tubal ligation History of section Family History Father No problems noted. Mother Breast cancer Uterine cancer Maternal Aunt Breast cancer Maternal Grandmother Breast cancer Social History Housing: Apartment Alcohol intake: never Comment: counts correct Patient Tobacco Use Status: Never used Tobacco e-Cigarette/Vaping Use: Never Used Second Hand Smoke Exposure: No service: No Current occupational status: unemployed Sexual orientation: Straight/Heterosexual Gender identity: Female Cognitive needs: No Hearing needs: No Vision needs: Yes Physical Exam Eyes Other: Anicteric GI Other: Abdomen is soft. All wounds clean dry and intact healing well Assessment & Plan Assessment & Plan (1) Status post laparoscopic cholecystectomy: Code(s): Z90.49 - Acquired absence of other specified parts of digestive tract Category: Medical Plan Patient has been given local instructions including avoiding strenuous activities for next few weeks time and will otherwise follow-up p.r.n.. All questions answered. Coding Level of Care Code Global (50968) Diagnoses Status post laparoscopic cholecystectomy Z90.49
== END 2023-08-01 14:07 | disposition home or self-care (01) ==
PROVIDERS: PCP Internal Medicine; Visit Provider Surgery
DX: Z90.49 Acquired absence of other specified parts of digestive tract (principal)
CPT/HCPCS: 99024

== ENCOUNTER → 2023-08-01 13:22 | Outpatient (BNVA) | payer OTHER, SELFPAY | PROVIDERS: PCP Internal Medicine; Visit Provider Surgery | DX: Z90.49 Acquired absence of other specified parts of digestive tract (principal) | CPT/HCPCS: 99212 ==

== ENCOUNTER 2023-08-23 14:50 | Outpatient (AMB) | payer OTHER, SELFPAY ==
[2023-08-23 15:00] VITALS: BP 130/70; BMI 32.2
--- NOTE | 2023-08-23 15:00 | MHC.PC.OV ---
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 Accompanied by: Self / Same As Patient Allergies hazelnut [HAZELNUT] Allergy (Severe, Verified 08/23/23 15:08) ANGIOEDEMA, NUMBNESS ibuprofen [From MOTRIN] Allergy (Severe, Verified 08/23/23 15:08) RASH, FACIAL SWELLING, anaphylaxis, face swelling peanut [PEANUT] Allergy (Severe, Verified 08/23/23 15:08) SWELLING tramadol Allergy (Severe, Verified 08/23/23 15:08) rash hydrocodone Allergy (Mild, Verified 08/23/23 15:08) Redness of Skin Medication List - Last Reconciled 08/23/23 by Kimmie Wisdom MD acetaminophen 500 mg PO Q6H PRN cetirizine (All Day Allergy (cetirizine)) 10 mg PO DAILY PRN 30 days omeprazole 40 mg PO DAILY 30 days Ventolin HFA 90 mcg/actuation (albuterol sulfate) 2 puffs inhalation Q6H PRN 30 days NS Tobacco use date assessed: 06/09/23 Dental Screening Dental Screen Date: 06/09/23 HPI HPI Comments History of Present Illness Details This is a 57-year-old female with mild persistent asthma, GERD, allergic rhinitis and insomnia that comes today for follow-up on her conditions. She use rescue inhaler less than once a month. GERD stable with PPIs. On antihistamines as needed for her allergic rhinitis. Complains of insomnia and I will prescribe zolpidem. Patient was aware that zolpidem can cause sonambulism and hallucinations. No chest pain or shortness on breath. [facility] Medical History (Updated 08/23/23 @ 21:03 by Kimmie Wisdom MD) Arthritis Asthma GERD without esophagitis Left lateral epicondylitis Bilateral acromioclavicular joint arthritis Lumbar degenerative disc disease Degenerative disc disease, cervical Obesity (BMI 30-39.9) Surgical History History of laparoscopic cholecystectomy (07/21/23) History of colonoscopy History of tubal ligation History of section Family History Father No problems noted. Mother Breast cancer Uterine cancer Maternal Aunt Breast cancer Maternal Grandmother Breast cancer Social History Housing: Apartment Alcohol intake: never Comment: counts correct Patient Tobacco Use Status: Never used Tobacco e-Cigarette/Vaping Use: Never Used Second Hand Smoke Exposure: No service: No Current occupational status: unemployed Sexual orientation: Straight/Heterosexual Gender identity: Female Cognitive needs: No Hearing needs: No Vision needs: Yes Questionnaire Thrive Questionnaire Date Thrive assessed: 06/09/23 FAIZA-7 AMB Questionnaire FAIZA-7 Date FAIZA - 7 assessed: 06/09/23 Source: Developed by Drs. Bin Carpenter, Cari Burk, Elieser Yanes and colleagues, with an educational chanell from [employer]. Review of Systems Const All systems reviewed & are unremarkable except as noted in HPI and below Card Denies chest pain at rest, Denies chest pain with activity, Denies edema, Denies irregular heart rhythm, Denies claudication, Denies dyspnea, Denies dyspnea on exertion, Denies orthopnea, Denies paroxysmal nocturnal dyspnea and Denies slow heart rate Resp Denies cough, Denies dyspnea and Denies dyspnea on exertion Neuro Denies behavioral changes and Denies lack of coordination Psych Denies behavioral changes Physical exam (Primary Care) Vital Signs: Last Vital Signs BP 130/70 08/23/23 15:00 BMI result Body Mass Index 32.2 Tobacco/Smoking Status: Tobacco use Status Tobacco use date assessed 06/09/23 08/23/23 15:05 Patient Tobacco Use Status Never used Tobacco 08/23/23 15:05 e-Cigarette/Vaping Use Never Used 08/23/23 15:05 Thrive Assessment: Date of Thrive Assessment Date Thrive assessed 06/09/23 08/23/23 15:05 Resp Effort & Inspection: normal respiratory effort Auscultation: clear to auscultation bilaterally Cardio Jugular venous distension: no JVD Rate: regular rate Rhythm: regular rhythm Heart sounds: S1 normal heart sound present and S2 normal heart sound present Extrem General: Yes full ROM Assessment and Plan Assessment & Plan (1) Mild persistent asthma, uncomplicated: Code(s): J45.30 - Mild persistent asthma, uncomplicated Plan: Use rescue inhaler as needed. (2) GERD without esophagitis: Code(s): K21.9 - Gastro-esophageal reflux disease without esophagitis Plan: Continue PPIs. (3) Seasonal allergic rhinitis due to pollen: Code(s): J30.1 - Allergic rhinitis due to pollen Plan: Continue antihistamines as needed. (4) Insomnia: Code(s): G47.00 - Insomnia, unspecified Qualifiers: Insomnia type: primary Qualified Code(s): F51.01 - Primary insomnia Plan: Start zolpidem as needed. Orders: Orders Lipid Panel Today E78.5 - Hyperlipidemia, unspecified Comprehensive Raymond. Panel Fast Today J45.30 - Mild persistent asthma, uncomplicated Medications: New zolpidem may repeat once if no response in 30-60 minutes 5 mg PO BEDTIME PRN 30 tabs 0RF insomnia 30 days Coding Level of Care Code Est Pt Level 4 (77160) Complex EM visit Add On G2211 Diagnoses Mild persistent asthma, uncomplicated J45.30 GERD without esophagitis K21.9 Seasonal allergic rhinitis due to pollen J30.1 Primary insomnia F51.01 Insomnia type: primary Time Spent (min) 21
== END 2023-08-23 15:23 | disposition home or self-care (01) ==
PROVIDERS: PCP Internal Medicine; Visit Provider Internal Medicine
DX: J45.30 Mild persistent asthma, uncomplicated (principal); K21.9 Gastro-esophageal reflux disease without esophagitis; J30.1 Allergic rhinitis due to pollen; F51.01 Primary insomnia
CPT/HCPCS: 99214; G2211

== ENCOUNTER 2023-10-18 08:39 | Outpatient (REF) | payer OTHER, SELFPAY ==
[2023-10-18 11:02] LABS: Alanine Aminotransferase 16 U/L (0-31); Albumin Level 4.1 g/dL (3.5-5.0); Alkaline Phosphatase 89 U/L (39-117); Anion Gap 13 (12-20); Aspartate Amino Transferase 15 U/L (5-31); Bilirubin Total 0.6 mg/dL (0.0-1.0); Blood Urea Nitrogen 11 mg/dL (9-16); Calcium 9.2 mg/dL (8.4-10.2); Carbon Dioxide 29 mmol/L (22-29); Chloride 104 mmol/L (96-108); Cholesterol 230 mg/dL (<200); Estimated Glomerular Filt Rate > 60; Glucose Fasting 141 mg/dL (60-99); HDL Cholesterol 44 mg/dL (>40); LDL Cholesterol Calculated 144 mg/dL (<100); Potassium 4.7 mmol/L (3.3-5.1); Sodium 141 mmol/L (135-145); Total Protein 7.3 g/dL (6.5-8.0); Triglycerides 210 mg/dL (<150)
== END 2023-10-18 08:40 | disposition home or self-care (01) ==
LOC: HO.LAB 08:39
PROVIDERS: PCP Internal Medicine; Visit Provider Internal Medicine
DX: E78.5 Hyperlipidemia, unspecified (principal); J45.30 Mild persistent asthma, uncomplicated
CPT/HCPCS: 36415; 80053; 80061

== ENCOUNTER 2023-10-27 13:13 | Outpatient (AMB) | payer OTHER, SELFPAY ==
[2023-10-27 13:23] VITALS: BP 122/70; BMI 32.2
--- NOTE | 2023-10-27 13:23 | MHC.PC.OV ---
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 Accompanied by: Self / Same As Patient Allergies hazelnut [HAZELNUT] Allergy (Severe, Verified 10/27/23 13:46) ANGIOEDEMA, NUMBNESS ibuprofen [From MOTRIN] Allergy (Severe, Verified 10/27/23 13:46) RASH, FACIAL SWELLING, anaphylaxis, face swelling peanut [PEANUT] Allergy (Severe, Verified 10/27/23 13:46) SWELLING tramadol Allergy (Severe, Verified 10/27/23 13:46) rash hydrocodone Allergy (Mild, Verified 10/27/23 13:46) Redness of Skin Medication List - Last Reconciled 10/27/23 by Kimmie Wisdom MD acetaminophen 500 mg PO Q6H PRN cetirizine (All Day Allergy (cetirizine)) 10 mg PO DAILY PRN 30 days famotidine 20 mg PO BID lidocaine 1.8% (ZTlido) 1 patch topical DAILY Ventolin HFA 90 mcg/actuation (albuterol sulfate) 2 puffs inhalation Q6H PRN 30 days NS zolpidem 5 mg PO BEDTIME PRN 30 days Tobacco use date assessed: 06/09/23 Dental Screening Dental Screen Date: 10/27/23 Did you have a dental visit in the last 12 months?: No Did you have a dental problem in the last 6 months where you did not have access to dental care?: No Was dental information given to patient?: Patient has dentist HPI HPI Comments History of Present Illness Details This is a 57-year-old female that comes for her physical exam. She complains of back pain due to lumbar degenerative disc disease and used gabapentin in the past but gave her a headache in the morning. I will try Lyrica. Last mammogram was a year ago in [place]. Colonoscopy done 2018. Pap smear done 2020. No chest pain or shortness on breath. [facility] Medical History (Updated 10/27/23 @ 14:51 by Kimmie Wisdom MD) Arthritis Asthma GERD without esophagitis Left lateral epicondylitis Bilateral acromioclavicular joint arthritis Lumbar degenerative disc disease Degenerative disc disease, cervical Obesity (BMI 30-39.9) Surgical History History of laparoscopic cholecystectomy (07/21/23) History of colonoscopy History of tubal ligation History of section Family History Father No problems noted. Mother Breast cancer Uterine cancer Maternal Aunt Breast cancer Maternal Grandmother Breast cancer Social History Housing: Apartment Alcohol intake: never Comment: counts correct Patient Tobacco Use Status: Never used Tobacco e-Cigarette/Vaping Use: Never Used Second Hand Smoke Exposure: No service: No Current occupational status: unemployed Sexual orientation: Straight/Heterosexual Gender identity: Female Cognitive needs: No Hearing needs: No Vision needs: Yes Questionnaire Thrive Questionnaire Date Thrive assessed: 06/09/23 FAIZA-7 AMB Questionnaire FAIZA-7 Date FAIZA - 7 assessed: 06/09/23 Source: Developed by Drs. Bin Carpenter, Cari Burk, Elieser Yanes and colleagues, with an educational chanell from [employer]. Review of Systems Const All systems reviewed & are unremarkable except as noted in HPI and below Card Denies chest pain at rest, Denies chest pain with activity, Denies edema, Denies irregular heart rhythm, Denies claudication, Denies dyspnea, Denies dyspnea on exertion, Denies orthopnea, Denies paroxysmal nocturnal dyspnea and Denies slow heart rate Resp Denies cough, Denies dyspnea and Denies dyspnea on exertion GI Denies abdominal pain, Denies change in bowel habits, Denies excessive flatus, Denies nausea and Denies vomiting Denies urinary incontinence, Denies urinary hesitancy and Denies urinary urgency Musc Denies atrophy, Denies deformity and Denies limited range of motion Physical exam (Primary Care) Vital Signs: Last Vital Signs BP 122/70 10/27/23 13:23 BMI result Body Mass Index 32.2 Tobacco/Smoking Status: Tobacco use Status Tobacco use date assessed 06/09/23 10/27/23 13:31 Patient Tobacco Use Status Never used Tobacco 10/27/23 13:31 e-Cigarette/Vaping Use Never Used 10/27/23 13:31 Thrive Assessment: Date of Thrive Assessment Date Thrive assessed 06/09/23 10/27/23 13:31 HENMT Head: Yes normal to inspection, Yes normocephalic and Yes atraumatic Ears: external ears normal Eyes General: appearance normal, both eyes and all related structures Eyelids: Yes eyelids normal Conjunctivae: conjunctivae normal Neck Neck: Yes normal visual inspection and Yes supple Resp Effort & Inspection: normal respiratory effort Auscultation: clear to auscultation bilaterally Cardio Jugular venous distension: no JVD Rate: regular rate Rhythm: regular rhythm Heart sounds: S1 normal heart sound present and S2 normal heart sound present GI Inspection: Yes normal to inspection Palpation (GI): Soft to palpation and nontender Auscultation: normal bowel sounds Skin General skin exam: no rashes or lesions noted Neuro General: no focal motor deficits Extrem General: Yes full ROM Psych Appearance: grossly normal Results AMB Hemoglobin A1c AMB Hemoglobin A1c 6.3 % Last Edit by DAYTON Rodriges on 10/27/23 14:01 Results Reviewed Results Reviewed: Laboratory Last Values Hgb A1c (Clinic) 6.3 % (4.0-6.0) H 10/27/23 13:55 Assessment and Plan Assessment & Plan (1) Physical exam: Code(s): Z00.00 - Encounter for general adult medical examination without abnormal findings Plan: Repeat in a year. (2) Lumbar degenerative disc disease: Code(s): M51.36 - Other intervertebral disc degeneration, lumbar region Plan: Start Lyrica. Orders: Orders MM screening mammo BI Today Z12.31 - Encounter for screening mammogram for malignant neoplasm of breast AMB Hemoglobin A1c Today R73.01 - Impaired fasting glucose Referrals CAMPUS EXECUTIVE DIRECTOR Referral Z01.419 - Encounter for gynecological examination (general) (routine) without abnormal findings Ophthalmology Referral H53.8 - Other visual disturbances Medications: New famotidine 20 mg PO BID 60 tabs 6RF 30 days lidocaine 1.8% (ZTlido) leave on most painful area for up to 12 hrs 1 patch topical DAILY 30 ea 1RF 30 days pregabalin 25 mg PO BEDTIME 30 caps 0RF 30 days Coding Level of Care Code Est Pt Level 3 (68561) Est Pt Prev Care 40-64y(98051) Diagnoses Physical exam Z00.00 Lumbar degenerative disc disease M51.36 Time Spent (min) 30
== END 2023-10-27 14:03 | disposition home or self-care (01) ==
PROVIDERS: Visit Provider Internal Medicine
DX: Z00.00 Encounter for general adult medical examination without abnormal findings (principal); M51.36 Other intervertebral disc degeneration, lumbar region; R73.01 Impaired fasting glucose
CPT/HCPCS: 83036; 99213; 99396

== ENCOUNTER 2023-12-02 10:52 | Outpatient (REF) | payer OTHER, SELFPAY ==
--- NOTE | ~2023-12-02 | MM_ITS ---
EXAMINATION: MM SCREENING DIGITAL BREAST TOMOSYNTHESIS, BILATERAL CLINICAL INFORMATION: Screening. Asymptomatic. COMPARISON: Mammography: Comparison is made with available priors TECHNIQUE: Digital breast mammography with tomosynthesis is performed in both the craniocaudal and mediolateral oblique views along with computer-aided detection (CAD). FINDINGS: There are scattered areas of fibroglandular density (ACR BI-RADS breast composition Category b). There are no significant masses, abnormal calcifications, or other abnormalities. MM/MM tomosynthesis screening BI IMPRESSION: No mammographic evidence of malignancy. ASSESSMENT: BI-RADS BI-RADS 1 - Negative RECOMMENDATION: Routine annual mammography screening. 1 year F/U This examination should not preclude the clinical evaluation of a suspicious palpable abnormality. This patient's information was entered into a reminder system with a target due date for their next mammogram. Electronically signed by: Milana Glaser DO 12/14/2023 03:24 PM EDT
== END 2023-12-02 10:53 | disposition home or self-care (01) ==
LOC: HO.MAMMO 10:52
PROVIDERS: PCP Internal Medicine; Visit Provider Internal Medicine
DX: Z12.31 Encounter for screening mammogram for malignant neoplasm of breast (principal)
CPT/HCPCS: 77063; 77067

== ENCOUNTER → 2023-12-02 11:00 | Outpatient (BNV) | payer OTHER, SELFPAY | PROVIDERS: PCP Internal Medicine; Visit Provider Internal Medicine | DX: Z12.31 Encounter for screening mammogram for malignant neoplasm of breast (principal) | CPT/HCPCS: 77063; 77067 ==

== ENCOUNTER 2024-02-01 13:51 | Outpatient (AMB) | payer OTHER, SELFPAY ==
[2024-02-01 14:04] VITALS: BP 132/72; BMI 32.4
--- NOTE | 2024-02-01 14:04 | MHC.OFFVIS ---
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 Allergies hazelnut [HAZELNUT] Allergy (Severe, Verified 10/27/23 13:46) ANGIOEDEMA, NUMBNESS ibuprofen [From MOTRIN] Allergy (Severe, Verified 10/27/23 13:46) RASH, FACIAL SWELLING, anaphylaxis, face swelling peanut [PEANUT] Allergy (Severe, Verified 10/27/23 13:46) SWELLING tramadol Allergy (Severe, Verified 10/27/23 13:46) rash hydrocodone Allergy (Mild, Verified 10/27/23 13:46) Redness of Skin Medication List - Last Reconciled 02/01/24 by Lisa Ernandez CNM acetaminophen 500 mg PO Q6H PRN cetirizine (All Day Allergy (cetirizine)) 10 mg PO DAILY PRN 30 days famotidine 20 mg PO BID 30 days lidocaine 1.8% (ZTlido) 1 patch topical DAILY 30 days lidocaine 5% 1 patch topical DAILY 30 days pregabalin 25 mg PO BEDTIME 30 days Ventolin HFA 90 mcg/actuation (albuterol sulfate) 2 puffs inhalation Q6H PRN 30 days NS zolpidem 5 mg PO BEDTIME PRN 30 days Is last menstrual period known: No Post menopausal: Yes Patient : No HPI HPI 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 At that time she was sexually active with her many years and did not feel she any testing for STIs. Currently she is alone for the last 8 months but she still does not feel she needs any testing. She said she [place] for couple of years in the meantime during the pandemic and had an negative Pap smear somewhere in [place] during that time. She says she is healthy she recently had a mammogram December and was fine she has appointments with her primary care provider coming up to review things she been told she has prediabetic and she is working on being healthier with that. She had her gallbladder taken out this year as well she lives with her kids and she works at [employer]. COUNTS INCLUDE 234 BEDS AT THE [facility] Medical History Arthritis Asthma GERD without esophagitis Left lateral epicondylitis Bilateral acromioclavicular joint arthritis Lumbar degenerative disc disease Degenerative disc disease, cervical Obesity (BMI 30-39.9) Surgical History History of laparoscopic cholecystectomy (07/21/23) History of colonoscopy History of tubal ligation History of section Family History Father No problems noted. Mother Breast cancer Uterine cancer Maternal Aunt Breast cancer Maternal Grandmother Breast cancer Social History Housing: Apartment Alcohol intake: never Comment: counts correct Patient Tobacco Use Status: Never used Tobacco e-Cigarette/Vaping Use: Never Used Second Hand Smoke Exposure: No service: No Current occupational status: unemployed Sexual orientation: Straight/Heterosexual Gender identity: Female Cognitive needs: No Hearing needs: No Vision needs: Yes Female Reproductive History Menstrual Age of Menarche: 13 control method: none Menopause type: natural Age of menopause: 53 Total pregnancies: 3 Full term: 3 Number of Living Children: 3 Date of last pap smear: 01/22/20 (01/22/24 normal, 2015 normal,) History of abnormal pap smear: No Date of Mammogram: 12/02/23 (Negative) History of abnormal mammogram: No Physical Exam Vital Signs: Last Vital Signs BP 132/72 02/01/24 14:04 BMI result Body Mass Index 32.4 Const General: healthy appearing, comfortable, no acute distress, well developed and alert Nutritional Appearance: average body habitus Orientation/consciousness: patient oriented x3 Limitations: no limitations HEENT Head: Yes normocephalic Neck Neck: Yes normal visual inspection Chest Chest palpation & inspection: normal inspection of the chest Breast/axilla inspection: normal inspection of the breasts and normal inspection of the axillae Breast/axilla palpation: normal palpation of the breasts and normal palpation of the axillae Resp Effort & Inspection: normal respiratory effort GI Inspection: Yes normal to inspection, No Abdominal wall edema and No distended Palpation (GI): Soft to palpation and nontender Other: Normal external exam normal vaginal atrophic changes cervix nulliparous smooth healthy atrophic changes noted uterus small midposition to anteverted mobile nontender good tone Kegel no abnormal discharge. General: Yes bladder normal to palpation External Female Exam: normal external appearance and normal appearance of the urethra Speculum Exam - Vagina: normal appearance of the vagina, normal palpation and normal vaginal discharge Speculum Exam - Cervix: normal appearance of the cervix, normal palpation and nontender Bimanual exam- vagina & uterus: normal bimanual exam, normal palpation, uterine size normal, bladder normal to palpation, consistency normal, normal palpation, uterine mobility normal, uterine shape normal, No Cervical tenderness present, non-tender and no cervical motion tenderness Bimanual Exam- Adnexa, other: normal adnexae, no masses, normal and No adnexal tenderness Neuro General: patient oriented x3 Results Reviewed Results Reviewed: GYNECOLOGIC CYTOLOGY Name: Salena Martins Specimen #: [id number] Age/Sex: 54/F Attending: Larry Lewis MD : 1965 Submitted by: Dennise Cota CNM Collected: 01/21/20 MR #: [id number] Received: 01/22/20 Status: DEP REF Location: [facility] Interpretation Satisfactory for evaluation. Negative for intraepithelial lesion or malignancy. HPV mRNA E6/E7: NOT DETECTED This assay detects E6/E7 viral messenger RNA (mRNA) from 14 high-risk HPV types (16, 18, 31, 33, 35, 39, 45, 51, 52, 56, 58, 59, 66, 68) HPV testing performed by [facility], [place], [place]. See reference laboratory portion of the EMR for entire report. Clinical Information LMP: 11/2018 Previous PAP test: 2016, wnl Other history: Menopausal Material Received ThinPrep cervical Copies To Dennise Cota [address] Cobos [address] [place] [phone] Larry Lewis MD [address] [place] [address] Dr. Cobos [address] [place] [phone] Electronically Signed By: Dasia Plunkett 02/11/20 [id number] The Pap Test is a screening procedure with the inherent possibility of both false negative and false positive results. Results should be interpreted in the context of historic and current clinical findings. Reliability of the Pap Test is enhanced by performing the test on a regular repetitive basis. Patient: Jax Page 1 of 1 Assessment & Plan Assessment & Plan (1) Well woman exam with routine gynecological exam: Code(s): Z01.419 - Encounter for gynecological examination (general) (routine) without abnormal findings Category: Medical (2) Postmenopausal: Code(s): Z78.0 - Asymptomatic menopausal state Category: Medical (3) Cervical cancer screening: Comment: Last Pap in our system 2020 negative with negative HPV. Code(s): Z12.4 - Encounter for screening for malignant neoplasm of cervix Category: Medical Plan -----Discussed in this visit the following: healthy balanced diet, regular and consistent exercise, getting recommended health screens, doing the best she can for her particular health concerns, kegel exercises, pap smear screening and followup recommendations, mammography screening and SBE, normal changes in cycles in her life stage--- . Patient says she has recently had her mammogram she is working on her diet and health as she has been told she is prediabetic she has an appointment Dr. Gracia coming up in 1-2 weeks. Reviewed that she probably would be due for Pap smear next year as the last 1 in our system is negative 20 although she thought she had a negative Pap somewhere in [place] somewhere in the time of the pandemic. Coding Level of Care Code Est Pt Prev Care 40-64y(03621) Diagnoses Well woman exam with routine gynecological exam Z01.419 Postmenopausal Z78.0 Cervical cancer screening Z12.4
== END 2024-02-01 14:58 | disposition home or self-care (01) ==
PROVIDERS: PCP Internal Medicine; Visit Provider Advanced Practice Midwife
DX: Z01.419 Encounter for gynecological examination (general) (routine) without abnormal findings (principal); Z78.0 Asymptomatic menopausal state; Z12.4 Encounter for screening for malignant neoplasm of cervix
CPT/HCPCS: 99396

== ENCOUNTER → 2024-02-01 13:51 | Outpatient (BNVA) | payer OTHER, SELFPAY | PROVIDERS: PCP Internal Medicine; Visit Provider Advanced Practice Midwife | DX: Z01.419 Encounter for gynecological examination (general) (routine) without abnormal findings (principal); R73.03 Prediabetes; Z98.51 Tubal ligation status; Z90.49 Acquired absence of other specified parts of digestive tract; Z78.0 Asymptomatic menopausal state | CPT/HCPCS: 99396 ==

== ENCOUNTER 2024-04-04 11:06 | Outpatient (AMB) | payer OTHER, SELFPAY ==
[2024-04-04 11:15] VITALS: BP 116/80; PULSE 70; O2SAT 98; BMI 32.3
--- NOTE | 2024-04-04 11:15 | MHC.PC.OV ---
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 Graphic Art Required: Yes Sales Representative Graphic Art Language: Full Roll Inspector Name: Kimmie Wisdom MD Information Interpreted: non-clinical & clinical Accompanied by: Self / Same As Patient Allergies hazelnut [HAZELNUT] Allergy (Severe, Verified 04/04/24 11:31) ANGIOEDEMA, NUMBNESS ibuprofen [From MOTRIN] Allergy (Severe, Verified 04/04/24 11:31) RASH, FACIAL SWELLING, anaphylaxis, face swelling peanut [PEANUT] Allergy (Severe, Verified 04/04/24 11:31) SWELLING tramadol Allergy (Severe, Verified 04/04/24 11:31) rash hydrocodone Allergy (Mild, Verified 04/04/24 11:31) Redness of Skin Medication List - Last Reconciled 04/04/24 by Kimmie Wisdom MD acetaminophen 500 mg PO Q6H PRN cetirizine (All Day Allergy (cetirizine)) 10 mg PO DAILY PRN 30 days famotidine 20 mg PO BID 30 days lidocaine 1.8% (ZTlido) 1 patch topical DAILY 30 days lidocaine 5% 1 patch topical DAILY 30 days pregabalin 25 mg PO BEDTIME 30 days Ventolin HFA 90 mcg/actuation (albuterol sulfate) 2 puffs inhalation Q6H PRN 30 days NS zolpidem 5 mg PO BEDTIME PRN 30 days Tobacco use date assessed: 04/04/24 Dental Screening Dental Screen Date: 04/04/24 Did you have a dental visit in the last 12 months?: Yes Did you have a dental problem in the last 6 months where you did not have access to dental care?: No Was dental information given to patient?: Patient has dentist HPI HPI Comments History of Present Illness Details The patient is a 58-year-old female presenting for a follow-up of prediabetes and hyperlipidemia. Previously, her blood glucose levels were elevated, with an A1c of 6.3%, which indicates prediabetes. She was advised to modify her diet, and it was noted she has not been losing weight. There is no complaint of excessive thirst or increased urination. On her last visit, her cholesterol levels were elevated. The patient has tried to change her diet, reducing intake of mayonnaise, butter, and fried foods. The patient had her gallbladder removed in the past due to pain, which resolved after the surgery; she does not experience diarrhea post-surgery. The patient experiences some depression and has previously not pursued counseling or psychiatric treatments. 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 Has blurry vision and once an ophthalmology referral. [facility] Medical History (Updated 04/04/24 @ 12:47 by Kimmie Wisdom MD) Arthritis Asthma GERD without esophagitis Left lateral epicondylitis Bilateral acromioclavicular joint arthritis Lumbar degenerative disc disease Degenerative disc disease, cervical Obesity (BMI 30-39.9) Surgical History History of laparoscopic cholecystectomy (07/21/23) History of colonoscopy History of tubal ligation History of section Family History Father No problems noted. Mother Breast cancer Uterine cancer Maternal Aunt Breast cancer Maternal Grandmother Breast cancer Social History Housing: Apartment Alcohol intake: never Comment: counts correct Patient Tobacco Use Status: Never used Tobacco e-Cigarette/Vaping Use: Never Used Second Hand Smoke Exposure: No service: No Current occupational status: unemployed Sexual orientation: Straight/Heterosexual Gender identity: Female Cognitive needs: No Hearing needs: No Vision needs: Yes Female Reproductive History Menstrual Age of Menarche: 13 Questionnaire PHQ-9 Over the last 2 weeks, how often have you been bothered by any of the following problems? 1. Little interest or pleasure in doing things: several days 2. Feeling down, depressed, or hopeless: nearly every day 3. Trouble falling or staying asleep, or sleeping too much: nearly every day 4. Feeling tired or having little energy: nearly every day 5. Poor appetite or overeating: not at all 6. Feeling bad about yourself - or that you are a failure or have let yourself or your family down: not at all 7. Trouble concentrating on things, such as reading the newspaper or watching television: not at all 8. Moving or speaking so slowly that other people could have noticed. Or the opposite - being so fidgety or restless that you have been moving around a lot more than usual: not at all 9. Thoughts that you would be better off or of hurting yourself in some way: not at all Total score: 10 Depression Screening Interpretation: Positive Depression Screening Follow-up: Existing condition and Follow-up Visit Requested Depression Screening Done: Yes 11841 - PHQ-9 Billing: Yes Source: Developed by Drs. Bin Carpenter, Cari Burk, Elieser Yanes and colleagues, with an educational chanell from [facility]. Thrive Questionnaire Date Thrive assessed: 04/04/24 I am a: Patient What is your living situation today?: I have a steady place to live Within the past 12 months, did the food you bought not last and you didn't have the money to get more?: Never true Within the past 12 months, did you worry whether your food would run out before you got money to buy more?: Never true Do you have trouble paying for medicines?: No Do you have trouble getting transportation to medical appointments?: No Do you have trouble paying your heating and electricity bill?: No Do you have trouble taking care of your child, family member or friend?: No Do you have trouble with day-to-day activities such as bathing, preparing meals, shopping, managing finances, etc.?: No Are you currently unemployed and looking for a job?: No Are you interested in more education?: No Please select the resources that you would like help with: None Currently or been in a relationship where the following occur: No concerns reported THRIVE Score: 0 AUDIT C Alcohol Use Questionnaire (AUDIT-C) 1. How often do you have a drink containing alcohol?: Never Total Score: 0 Score Reviewed/Action Taken: No FAIZA-7 AMB Questionnaire FAIZA-7 Date FAIZA - 7 assessed: 04/04/24 Feeling nervous, anxious, or on edge: 0 = Not at all Not being able to stop or control worryin = Not at all Worrying too much about different things: 0 = Not at all Trouble relaxin = Not at all Being so restless that it is hard to sit still: 0 = Not at all Becoming easily annoyed or irritable: 0 = Not at all Feeling afraid as if something awful might happen: 0 = Not at all Total FAIZA-7 score (0-4 normal; 5-9 mild; 10-14 moderate; 15-21 severe): 0 Source: Developed by Drs. Bin Carpenter, Cari Burk, Elieser Yanes and colleagues, with an educational chanell from [facility]. FAIZA-7 Assessment Billing FAIZA-7 Assessment Tool: FAIZA-7 Assessment 13651 Review of Systems Const All systems reviewed & are unremarkable except as noted in HPI and below Card Denies chest pain at rest, Denies chest pain with activity, Denies edema, Denies irregular heart rhythm, Denies claudication, Denies dyspnea, Denies dyspnea on exertion, Denies orthopnea, Denies paroxysmal nocturnal dyspnea and Denies slow heart rate Resp Denies cough, Denies dyspnea and Denies dyspnea on exertion Physical exam (Primary Care) Vital Signs: Last Vital Signs Pulse 70 04/04/24 11:15 BP 116/80 04/04/24 11:15 Pulse Ox 98 04/04/24 11:15 Oxygen Delivery Method Room Air 04/04/24 11:15 BMI result Body Mass Index 32.3 Tobacco/Smoking Status: Tobacco use Status Tobacco use date assessed 04/04/24 04/04/24 11:17 Patient Tobacco Use Status Never used Tobacco 04/04/24 11:17 e-Cigarette/Vaping Use Never Used 04/04/24 11:17 PHQ-9: PHQ-9 Score PHQ-9: Total score 10 04/04/24 12:01 Depression Screening Interpretation: Positive Depression Screening Follow-up: Existing condition and Follow-up Visit Requested Thrive Assessment: Date of Thrive Assessment Date Thrive assessed 04/04/24 04/04/24 11:17 Currently or been in a relationship where the following occur: No concerns reported Resp Effort & Inspection: normal respiratory effort Auscultation: clear to auscultation bilaterally Cardio Jugular venous distension: no JVD Rate: regular rate Rhythm: regular rhythm Heart sounds: S1 normal heart sound present and S2 normal heart sound present Extrem General: Yes full ROM Office Procedures Flu Questionnaire Does the patient have a severe egg allergy?: No Immunizations Fluarix Triv [id number] (PF) 45 mcg (15 mcg x 3)/0.5 mL IM syringe Performing Provider: Kimmie Wisdom MD [facility] Documented (not given) by: DAYTON Rodriges on 04/04/24 12:02 Reason Not Given: Patient Refused Coding Level of Care Code Est Pt Level 4 (95239) Complex EM visit Add On G2211 Diagnoses Impaired glucose tolerance R73.02 Right foot pain M79.671 Blurry vision H53.8 Mild major depression F32.0 Additional Codes FAIZA-7 Assessment Billing - FAIZA-7 Assessment Tool: FAIZA-7 Assessment 32358 ([id number]) PHQ-9 - 80223 - PHQ-9 Billing: Yes ([id number]) Time Spent (min) 22 Assessment & Plan Assessment & Plan (1) Impaired glucose tolerance: Code(s): R73.02 - Impaired glucose tolerance (oral) Category: Medical (2) Right foot pain: Code(s): M79.671 - Pain in right foot Category: Medical (3) Blurry vision: Code(s): H53.8 - Other visual disturbances Category: Medical (4) Mild major depression: Code(s): F32.0 - Major depressive disorder, single episode, mild Category: Medical Plan - Continue dietary modifications to manage hyperlipidemia; avoid high-cholesterol foods. - Discuss prescribed medication with pharmacy to resolve any issues. - Encourage the patient to engage in counseling for depression management; monitor mood symptoms. Patient was informed and verbally consented to the use of an ambient scribe for clinic note documentation during this visit. I discussed with the patient the importance of tracking her A1c and made plans to recheck it. If it rises above 6.5%, we will consider starting medication for diabetes management. We reviewed her dietary changes and stressed the impact of avoiding high-cholesterol foods to manage her hyperlipidemia. I noted her difficulty in obtaining prescriptions and advised her to follow up with the pharmacy. We also discussed her depression; I recommended seeking counseling and advised her on the benefits of addressing her mental health proactively. Orders: Orders Lipid Panel Today E78.5 - Hyperlipidemia, unspecified AMB Hemoglobin A1c Today Z13.9 - Encounter for screening, unspecified Comprehensive Kosse. Panel Fast Today R73.02 - Impaired glucose tolerance (oral) Influenza [id number] Immunization Today Z23 - Encounter for immunization Referrals Podiatry Referral M79.671 - Pain in right foot Ophthalmology Referral H53.8 - Other visual disturbances Medications: New erythromycin 1 appl ophthalmic (eye) DAILY 3.5 grams 0RF 7 days Refilled lidocaine 5% leave on most painful area for up to 12 hrs 1 patch topical DAILY 30 ea 0RF 30 days Discontinued lidocaine 1.8% (ZTlido) leave on most painful area for up to 12 hrs Discontinued Reason: No Longer Medically Relevant 1 patch topical DAILY 30 days 30 ea 1RF Patient Instructions: - Follow recommended dietary guidelines to improve cholesterol levels. - Attend scheduled lab appointments for A1c testing. - Contact the pharmacy to ensure availability and obtain prescribed medications. - Consider engaging in counseling or support sessions for depression management. - Report any new or worsening symptoms, particularly concerning blood sugar levels or mood changes.
--- OUTSIDE RECORDS SUMMARY | 2024-04-04 12:39 | XMS_ITS | Clinical Summary ---
Author Organization [address] Sharonda akbar Address [address] [place] [address] Phone Care Team Providers Care Route Driver Salesperson Name Role Phone Jerica Liz MD Primary Care Provider [phone] Allergies Active Allergy Reactions Criticality Noted Date Comments Ibuprofen 08/12/2021 Medications Medication Sig Dispensed Refills Start Date End Date Status atorvastatin (LIPITOR) 40 mg tablet Take 1 tablet (40 mg total) by mouth every night at bedtime. 05/11/2023 Active blood-gluc,BP meter,adult cuff device Check blood pressure daily, create log and follow up with log and device for review 02/03/2022 Active cyclobenzaprine (FLEXERIL) 10 mg tablet as needed. 01/13/2022 Active famotidine (PEPCID) 20 mg tablet TAKE 1 TABLET BY MOUTH 2 TIMES A DAY NEEDED FOR HEARTBURN. 01/10/2023 Active fluticasone propionate (FLONASE) 50 mcg/actuation nasal spray spray/apply 1 spray in each nostril daily. 05/11/2023 Active lidocaine (ZTlido) 1.8 % adhesive patch,medicated Apply 1 patch topically daily as needed. 12/29/2022 Active montelukast (SINGULAIR) 10 mg tablet Take 1 tablet (10 mg total) by mouth 1 (one) time each day. 05/11/2023 05/10/2024 Active pantoprazole (PROTONIX) 40 mg EC tablet Take 1 tablet (40 mg total) by mouth 1 (one) time each day. 02/18/2023 Active triamcinolone (KENALOG) 0.1 % cream as needed. 01/13/2022 Active Active Problems Problem Noted Date Diagnosed Date Class 1 obesity due to exces s calories with serious comorbidity and body mass index (BMI) of 33.0 to 33.9 in adult 10/31/2023 Mild intermittent asthma without complication Current mild episode of micheline r depressive disorder without prior episode 04/19/2023 Mixed hyperlipidemia 12/14/2022 Controlled type 2 diabetes m ellitus without complication, without long-term current use of insulin 12/14/2022 Gastroesophageal reflux disease 11/23/2022 Immunizations Name Administration Dates Next Due Tdap Tetanus diptheria acell ular pertussis (Boostrix; Adacel) 7yo and older 01/17/2022 Medical History Medical History Date Comments Eczema DX:Eczema Low back pain DX:Low back pain Visual impairment DX:Visual impa irment Family History Medical History Relation Name Comments Hyperlipidemia Brother 1 Heart disease Father Breast cancer Maternal Grandmother Arthritis Mother Breast cancer Mother Cancer Mother Breast CA Hypertension Mother Parkinsonism Mother Breast cancer Mother's Sister 1 Breast cancer Mother's Sister 2 Diabetes Sister 1 Hyperlipidemia Sister 1 Relation Name Status Comments Brother 1 Alive Brother 2 Alive Brother 3 Alive Father Alive Maternal Grandfather Maternal Grandmother Mother Mother's Sister 1 Mother's Sister 2 Paternal Grandfather Paternal Grandmother Sister 1 Alive Sister 2 Alive Sister 3 Alive Sister 4 Alive Social History Tobacco Use Types Packs/Day Years Used Date Smoking Tobacco: Never Smokeless Tobacco: Never Alcohol Use Standard Drinks/Week Comments Never 0 (1 standard drink = 0.6 oz pur e alcohol) Sex and Gender Information Value Date Recorded Sex Assigned at Not on file Gender Identity Not on file Sexual Orientation Not on file Job Start Date Occupation Industry Not on file Not on file Not on file Obstetrics History Last Filed Vital Signs Vital Sign Reading Time Taken Comments Blood Pressure 119/67 05/11/2023 2:32 PM EST Sit ting Left arm Pulse 88 05/11/2023 2:32 PM EST Temperature - - Respiratory Rate - - Oxygen Saturation - - Inhaled Oxygen Concentration - - Weight 83.5 kg (184 lb) 05/11/2023 2:32 PM EST Height 160 cm (5' 3 ) 05/11/2023 2:32 PM EST Body Mass Index 32.59 05/11/2023 2:32 PM EST Plan of Treatment Health Maintenance Due Date Last Done Comments Pneumococcal Vaccine: Pediatrics (0 to 5 Years) and At-Risk Patients (6 to 64 Years) (1 of 2 - PCV) 11/10/1971 Diabetes: Annual Foot Exam 11/10/1975 Hepatitis B Vaccines (1 of 3 - 19+ 3-dose series) 1984 Zoster Vaccines (1 of 2) 11/10/2015 Colorectal Cancer Screening: Colonoscopy 02/14/2022 Depression Screening 02/14/2022 Social Influencers of Health Screening 02/14/2022 Diabetes: Annual Urine Albumin-Creatinine Ratio (uACR) 04/30/2023 Diabetes: Blood Sugar Contro l Test (HGBA1C) 10/28/2023 04/29/2023, 04/29/2023, 11/23/2022 COVID-19 Vaccine (2023-2 5 season) 2023 Influenza Vaccine (#1) 2023 Diabetes: Annual GFR (Glomerular Filtration Rate) 11/24/2023 11/23/2022, 11/23/2022 Diabetes: Annual Retina Eye Exam 12/23/2023 12/22/2022 Breast Cancer Screening 01/04/2025 01/04/2023 Cervical Cancer Screening: HPV 01/21/2028 01/20/2023 Cholesterol Screening (Lipid Panel) 04/29/2028 04/29/2023, 04/29/2023, 11/23/2022 DTaP,Tdap,and Td Vaccines (2 - Td or Tdap) 01/18/2032 01/17/2022 HIV Screening Completed 11/23/2022 Hepatitis C Screening Completed 11/23/2022 HIB Vaccines Aged Out No longer eligi ble based on patient's age to complete this topic HPV Vaccines Aged Out No longer eligi ble based on patient's age to complete this topic Hepatitis A Vaccines Aged Out No long er eligible based on patient's age to complete this topic IPV Vaccines Aged Out No longer eligi ble based on patient's age to complete this topic MMR Vaccines Aged Out No longer eligi ble based on patient's age to complete this topic Meningococcal ACWY Vaccine Aged Out N o longer eligible based on patient's age to complete this topic RSV Immunization Patients Under 20 months Aged Out No longer eligible b ased on patient's age to complete this topic Varicella Vaccines Aged Out No longer eligible based on patient's age to complete this topic Procedures Procedure Name Priority Date/Time Associated Diagnosis Comments HEMOGLOBIN A1C Routine 04/29/2023 LIPID PANEL Routine 04/29/2023 HPV Routine 01/20/2023 MAMMOGRAM SCREENING BILATERAL 3D ROSHNI WITH CAD Routine 01/04/2023 1:28 PM EDT Encounter for screening mammogram for malignant neoplasm of breast DIABETES EYE EXAM Routine 12/22/2022 HEPATITIS C SCREENING Routine 11/23/2022 HIV SCREENING Routine 11/23/2022 ANNUAL BMP BLOOD TEST Routine 11/23/2022 from Last 3 Months or Most Recently Relevant to Health Maintenance Results * (ABNORMAL) Hemoglobin A1c (04/29/2023) Hemoglobin A1C 6.2(A) 5.7 % Blood Venous blood specimen / Unknown Historical Provider LAB BLOOD ORDERAB LES * (ABNORMAL) Lipid panel (04/29/2023) Pathologist [facility] Triglycerides 121 150 mg/dL Cholesterol 204(A) 0 - 200 mg/dL HDL 48 37 - 92 mg/dL LDL Cholesterol 132(A) 50 - 130 mg/dL Blood Venous blood specimen / Unknown Historical Provider LAB BLOOD ORDERAB LES * Cervical Cancer Screening: HPV (01/20/2023) Pathologist [facility] Cervical Cancer Screening: HPV Negative, Abstracted Historical Provider [facility] * MAMMOGRAM SCREENING BILATERAL 3D ROSHNI WITH CAD (01/04/2023 1:28 PM EDT) Anatomical Region Laterality Modality Mammography 04/14/2022 4:29 PM EST Narrative 01/04/2023 3:45 PM EDT This is a summary report. The complete report is available in the patient's medical record. If you cannot access the medical record, please contact the sending organization for a detailed fax or copy. SESSION: Separate. EXAMINATION: Bilateral digital mammograms with CAD and Tomosynthesis. TECHNIQUE: Bilateral full field digital mammography with synthesized (2D) the and Tomosynthesis (3-D) was performed using standard cc and MLO projections. Mammogram was interpreted in correlation with CAD and Tomosynthesis. INDICATION: Yearly screening. BREAST DENSITY: There are scattered areas of fibroglandular density. (Density B, 25% to less than 50%). FINDINGS: No comparisons. A few typically benign scattered calcifications as well as benign-appearing axillary lymph nodes are noted. No suspicious microcalcifications or masses are seen. ?? CONCLUSION: ??No mammographic evidence to suggest malignancy. RECOMMENDATION: Continue with yearly screening mammography. NOTE: Patient has been informed about results of this screening mammogram, by a patient letter with 'plain language report'. BI-RADS Category 2: Benign findings. PQRI: 3342F. ?? Report reviewed and signed by : Dr. Jaycee Chakraborty MD on 01/04/2023 3:45 PM. Workstation Name - [id number] Procedure Note Jacyee Chakraborty MD - 04/19/2023 This is a summary report. The complete report is available in thepatient's medical record. If you cannot access the medical record, pleasecontact the sending organization for a detailed fax or copy. SESSION: Separate. EXAMINATION: Bilateral digital mammograms with CAD and Tomosynthesis. TECHNIQUE: Bilateral full field digital mammography with synthesized (2D)the and Tomosynthesis (3-D) was performed using standard cc and MLOprojections. Mammogram was interpreted in correlation with CAD andTomosynthesis. INDICATION: Yearly screening. BREAST DENSITY: There are scattered areas of fibroglandular density.(Density B, 25% to less than 50%). FINDINGS: No comparisons. A few typically benign scattered calcifications as well asbenign-appearing axillary lymph nodes are noted. No suspiciousmicrocalcifications or masses are seen. CONCLUSION: No mammographic evidence to suggest malignancy. RECOMMENDATION: Continue with yearly screening mammography. NOTE: Patient has been informed about results of this screening mammogram,by a patient letter with 'plain language report'. BI-RADS Category 2: Benign findings. PQRI: 3342F. Report reviewed and signed by : Dr. Jaycee Chakraborty MD on 01/04/2023 3:45PM. Workstation Name - [id number] Dev Llanes Grecia DO IMG BI PROCEDUR ES * Diabetes Eye Exam (12/22/2022) [facility] Diabetes: Annual Retina Eye Exam Abstracted Historical Provider [facility] * Annual BMP Blood Test (11/23/2022) [facility] Annual BMP Blood Test Abstracted Historical Provider [facility] * HIV Screening (11/23/2022) [facility] HIV Screening Abstracted Historical Provider [facility] MAINTENANC * Hepatitis C Screening (11/23/2022) [facility] Hepatitis C Screening Abstracted Historical Provider [facility] from Last 3 Months or Most Recently Relevant to Health Maintenance Care Teams Route Driver Salesperson Relationship Specialty Start Date End Date Jerica Liz MD [address] [place] [address] PCP - General Internal Medicine 08/12/21
--- OUTSIDE RECORDS SUMMARY | 2024-04-04 12:39 | XMS_ITS | Clinical Summary ---
Author Organization [facility] Address [address] [place] [address] Care Team Providers Care Operations Supervisor 2Nd Shift Name Role Phone Jerica Liz MD Primary Care Provider Unav ailable Allergies Active Allergy Reactions Criticality Noted Date Comments Ibuprofen 08/12/2021 Medications Medication Sig Dispensed Refills Start Date End Date Status triamcinolone (KENALOG) 0.1 % cream as needed. 0 01/13/2022 Active cyclobenzaprine (FLEXERIL) 10 MG tablet as needed. 0 01/13/2022 Active Blood Pressure Monitoring (Adult Blood Pressure Cuff Lg) KITIndications:Ese vated blood pressure reading Check blood pressure daily, create log and follow up with log and device for review 1 kit 0 02/03/2022 Active Lidocaine (ZTlido) 1.8 % PTCHIndications:Ch ronic bilateral low back pain without sciatica Apply 1 patch topically daily as needed. 30 patch 0 12/29/2022 Active famotidine (PEPCID) 20 MG tablet TAKE 1 TABLET BY MOUTH 2 TIMES A DAY NEEDED FOR HEARTBURN. 180 tablet 0 01/10/2023 Active pantoprazole (PROTONIX) 40 MG tablet TAKE 1 TABLET BY MOUTH EVERY DAY 90 tablet 0 02/18/2023 Active fluticasone (FLONASE) 50 MCG/ACT nasal spray spray/apply 1 spray in each nostril daily. 11.1 mL 1 05/11/2023 Active montelukast (SINGULAIR) 10 MG tablet Take 1 tablet (10 mg total) by mouth daily. 30 tablet 2 05/11/2023 05/10/2024 Active atorvastatin (LIPITOR) tablet 40 mg Take 1 tablet (40 mg total) by mouth every night at bedtime. 90 tablet 1 05/11/2023 Active Active Problems Problem Noted Date Diagnosed Date Mild intermittent asthma without complication Current mild episode of micheline r depressive disorder without prior episode 04/19/2023 Encounter for gynecological examination without abnormal finding 01/20/2023 Cervical cancer screening 01/20/2023 Encounter for screening mamm ogram for malignant neoplasm of breast 01/20/2023 Class 1 obesity due to exces s calories with serious comorbidity and body mass index (BMI) of 33.0 to 33.9 in adult 01/20/2023 Family history of breast cancer in mother 2022 Controlled type 2 diabetes m ellitus without complication, without long-term current use of insulin 12/14/2022 Mixed hyperlipidemia 12/14/2022 Gastroesophageal reflux disease 11/23/2022 Immunizations Name Administration Dates Next Due Tdap 01/17/2022 Family History Medical History Relation Name Comments Hyperlipidemia Brother 1 Heart disease Father Breast cancer Maternal Aunt 1 Breast cancer Maternal Aunt 2 Breast cancer Maternal Grandmother Arthritis Mother Breast cancer Mother Cancer Mother Breast CA Hypertension Mother Parkinsonism Mother Diabetes Sister 1 Hyperlipidemia Sister 1 Relation Name Status Comments Brother 1 Alive Brother 2 Alive Brother 3 Alive Father Alive Maternal Aunt 1 Maternal Aunt 2 Maternal Grandfather Maternal Grandmother Mother Paternal Grandfather Paternal Grandmother Sister 1 Alive Sister 2 Alive Sister 3 Alive Sister 4 Alive Social History Tobacco Use Types Packs/Day Years Used Date Smoking Tobacco: Never Smokeless Tobacco: Never Tobacco Cessation:Counseling Given: No Alcohol Use Standard Drinks/Week Comments Never 0 (1 standard drink = 0.6 oz pur e alcohol) Sex and Gender Information Value Date Recorded Sex Assigned at Female 01/20/2023 9:53 AM EST Gender Identity Female 01/20/2023 9:53 AM EST Sexual Orientation Straight 01/20/2023 9: 53 AM EST Job Start Date Occupation Industry Not on file Not on file Not on file Last Filed Vital Signs Vital Sign Reading Time Taken Comments Blood Pressure 119/67 05/11/2023 2:32 PM EST Pulse 88 05/11/2023 2:32 PM EST Temperature 36.5 ??C (97.7 ??F) 05/11/2023 2:32 PM ES T Respiratory Rate - - Oxygen Saturation 98% 05/11/2023 2:32 PM EST Inhaled Oxygen Concentration - - Weight 83.5 kg (184 lb) 05/11/2023 2:32 PM EST Height 160 cm (5' 3 ) 05/11/2023 2:32 PM EST Body Mass Index 32.59 05/11/2023 2:32 PM EST Plan of Treatment Health Maintenance Due Date Last Done Comments Hepatitis B Vaccines (1 of 3 - 3-dose series) 1965 COVID-19 Vaccine (#1) 05/11/1966 Pneumococcal Vaccine (1 of 2 - PCV) 11/10/1971 Diabetes: Foot Exam 11/10/1983 Diabetes: Microalbumin Test 11/10/1983 Colon Cancer Screening (Colonoscopy) 2010 Shingrix-Zoster Vaccine (1 of 2) 11/10/2015 Depression Screening 04/14/2023 04/14/2022, 08/13/19 22 Hemoglobin A1C Due 10/28/2023 04/29/2023, 11/23/2022 Preventative Health Evaluation 01/21/2024 01/20/2023, 04/14/2022, 04/14/2022 BMI Counseling 05/11/2024 05/11/2023, 08/2023, 01/20/2023, Additional history exists Diabetes: Eye Exam (No Retinopathy) 12/22/2024 12/22/2022 Breast Cancer Screening (Mammogram) 01/04/2025 01/04/2023 Cervical Cancer Screening (Pap Smear) 01/20/2026 01/20/2023 DTap / Tdap / Td (2 - Td or Tdap) 01/18/2032 01/17/2022 Hepatitis C Screening Completed 11/23/2022 Influenza Vaccine Discontinued RSV Ped < 20 months Aged Out No longe r eligible based on patient's age to complete this topic Care Teams Operations Supervisor 2Nd Shift Relationship Specialty Start Date End Date Jerica Liz MD PCP - General Internal Medicine 08/12/21
== END 2024-04-04 11:42 | disposition home or self-care (01) ==
PROVIDERS: PCP Internal Medicine; Visit Provider Internal Medicine
DX: R73.02 Impaired glucose tolerance (oral) (principal); M79.671 Pain in right foot; H53.8 Other visual disturbances; F32.0 Major depressive disorder, single episode, mild; Z23 Encounter for immunization

== ENCOUNTER → 2024-04-04 11:06 | Outpatient (BNVA) | payer OTHER, SELFPAY | PROVIDERS: PCP Internal Medicine; Visit Provider Internal Medicine | DX: R73.02 Impaired glucose tolerance (oral) (principal); M79.671 Pain in right foot; H53.8 Other visual disturbances; F32.0 Major depressive disorder, single episode, mild | CPT/HCPCS: 90471; 96127; 99212 ==

== ENCOUNTER 2024-05-10 08:07 | Outpatient (REF) | payer OTHER, SELFPAY ==
[2024-05-10 09:09] LABS: MANUAL DIFF FLAG NO
--- OUTSIDE RECORDS SUMMARY | 2024-05-10 09:25 | XMS_ITS | Clinical Summary ---
Author Organization [facility] [facility] Address [address] [place] [address] Care Team Providers Care Mailhouse Operator Name Role Phone Jerica Liz MD Primary [...] age to complete this topic Care Teams Mailhouse Operator Relationship Specialty Start Date End Date Jerica Liz MD PCP - General Internal Medicine 08/12/21
--- OUTSIDE RECORDS SUMMARY | 2024-05-10 09:25 | XMS_ITS | Clinical Summary ---
Author Organization [address] Sharonda akbar Address [address] [place] [address] Phone Care Team Providers Care Insurance Verification Specialist Name Role Phone Jerica Liz MD Primary Care Provider [phone] Allergies Active Allergy Reactions Criticality Noted Date [...] Results * (ABNORMAL) Hemoglobin A1c (04/29/2023) Pathologist [facility] Hemoglobin A1C 6.2(A) <=5.7 % Blood Venous blood specimen / Unknown Historical Provider LAB BLOOD ORDERABLES Annabella l Result * (ABNORMAL) Lipid panel (04/29/2023) Pathologist [facility] Triglycerides 121 <=150 mg/dL Cholesterol 204(A) 0 - 200 mg/dL HDL 48 37 - 92 mg/dL LDL Cholesterol 132(A) 50 - 130 mg/dL Blood Venous blood specimen / Unknown Historical Provider MD LAB BLOOD ORDERABLES Annabella l Result * Cervical Cancer Screening: HPV (01/20/2023) Pathologist [facility] Cervical Cancer Screening: HPV Negative, Abstracted us Historical Provider [facility] Final Result * MAMMOGRAM SCREENING BILATERAL 3D [...] on 01/04/2023 3:45 PM. Workstation Name - [id number] Procedure Note Jaycee Chakraborty MD - 04/19/2023 [...] MD on 01/04/2023 3:45PM. Workstation Name - [id number] Result [facility] Dev Paige DO IMG BI PROCEDURES Final Result * Diabetes Eye Exam (12/22/2022) [facility] Diabetes: Annual Retina Eye Exam Abstracted Result [facility] Provider HEALTH MAINTENANCE Final Result * Annual BMP Blood Test (11/23/2022) [facility] Annual BMP Blood Test Abstracted Result [facility] Provider HEALTH MAINTENANCE Final Result * HIV Screening (11/23/2022) [facility] HIV Screening Abstracted Result [facility] Provider HEALTH MAINTENANCE Final Result * Hepatitis C Screening (11/23/2022) [facility] Hepatitis C Screening Abstracted [facility] Provider HEALTH MAINTENANCE Final Result from Last 3 Months or Most Recently Relevant to Health Maintenance Insurance MEDICAID - [place] Care Teams Insurance Verification Specialist Relationship Specialty Start Date End Date Jerica Liz MD [address] [place] [address] PCP - General Internal Medicine 08/12/21
[2024-05-10 10:00] LABS: Basophils Absolute Auto 0.1 X10*3/uL (0.0-0.2); Basophils Percent Auto 0.9 % (0-2); Eosinophils Absolute Auto 0.1 X10*3/uL (0.0-0.4); Eosinophils Percent Auto 2.4 % (0-4); Hematocrit 41.5 % (37.0-47.0); Hemoglobin 14.3 g/dl (12.0-16.0); Imm Gran Abs Auto 0.01 X10*3/uL (0.00-0.03); Imm Gran Pct Auto 0.2 % (0.0-0.4); Lymphocytes Absolute Auto 1.9 X10*3/uL (1.2-4.9); Mean Corpuscular HGB Conc 34.5 g/dl (31.0-35.0); Mean Corpuscular Hemoglobin 30.7 pg (27.0-33.0); Mean Corpuscular Volume 89.1 fL (80.0-98.0); Mean Platelet Volume 12.1 fL (9.4-12.3); Monocytes Absolute Auto 0.3 X10*3/uL (0.1-1.2); Monocytes Percent Auto 4.8 % (2-11); Neutrophils Absolute Auto 3.4 x10*3/uL (2.0-8.3); Neutrophils Percent Auto 58.7 % (45-73); Platelet Count 234 X10*3/uL (160-400); Red Blood Count 4.66 X10*6/uL (4.20-5.50); Red Cell Distribution Width 12.8 % (11.0-16.0); White Blood Count 5.8 X10*3/uL (4.8-10.8)
[2024-05-10 10:33] LABS: Alanine Aminotransferase 15 U/L (0-31); Albumin Level 4.2 g/dL (3.5-5.0); Alkaline Phosphatase 93 U/L (39-117); Anion Gap 11 (12-20); Aspartate Amino Transferase 18 U/L (5-31); Bilirubin Total 0.5 mg/dL (0.0-1.0); Blood Urea Nitrogen 12 mg/dL (9-16); Calcium 9.1 mg/dL (8.4-10.2); Carbon Dioxide 27 mmol/L (22-29); Chloride 106 mmol/L (96-108); Cholesterol 222 mg/dL (<200); Estimated Glomerular Filt Rate > 60; Glucose Fasting 130 mg/dL (60-99); HDL Cholesterol 52 mg/dL (>40); LDL Cholesterol Calculated 146 mg/dL (<100); Potassium 4.1 mmol/L (3.3-5.1); Sodium 140 mmol/L (135-145); Total Protein 7.8 g/dL (6.5-8.0); Triglycerides 120 mg/dL (<150)
[2024-05-11 17:23] LABS: Immunoglobulin A 365 mg/dL (47-310); Transglutaminase IgA <1.0 U/mL
== END 2024-05-10 08:08 | disposition home or self-care (01) ==
LOC: HO.LAB 08:07
PROVIDERS: PCP Internal Medicine; Visit Provider Internal Medicine
DX: R10.9 Unspecified abdominal pain (principal); F32.0 Major depressive disorder, single episode, mild; R73.02 Impaired glucose tolerance (oral); F51.01 Primary insomnia; K21.9 Gastro-esophageal reflux disease without esophagitis; K80.50 Calculus of bile duct without cholangitis or cholecystitis without obstruction; E78.5 Hyperlipidemia, unspecified
CPT/HCPCS: 36415; 80053; 80061; 82784; 83036; 85025; 86364; 96127; 99212

== ENCOUNTER 2024-05-10 08:07 | Outpatient (AMB) | payer OTHER, SELFPAY ==
--- NOTE | 2024-05-10 08:11 | MHC.PC.OV ---
Vital Signs 05/10/24 08:12 Height 5 ft 3 in Weight 179 lb BMI 31.7 BP 114/68 Blood Pressure Location Lt brachial Position Sitting Pulse 69 Pulse Source Pulse Oximeter Pulse Oximetry (%) 97 Oxygen Delivery Method Room Air Intake Visit Reasons: Stomach Pain f/u Acetylene Torch Operator Required: Yes Acetylene Torch Operator Language: National Sales Representative Name: Kimmie Wisdom MD Information Interpreted: non-clinical & clinical Accompanied by: Self / Same As Patient Allergies hazelnut [HAZELNUT] Allergy (Severe, Verified 05/10/24 08:24) ANGIOEDEMA, NUMBNESS ibuprofen [From MOTRIN] Allergy (Severe, Verified 05/10/24 08:24) RASH, FACIAL SWELLING, anaphylaxis, face swelling peanut [PEANUT] Allergy (Severe, Verified 05/10/24 08:24) SWELLING tramadol Allergy (Severe, Verified 05/10/24 08:24) rash hydrocodone Allergy (Mild, Verified 05/10/24 08:24) Redness of Skin Medication List - Last Reconciled 05/10/24 by Kimmie Wisdom MD acetaminophen 500 mg PO Q6H PRN cetirizine (All Day Allergy (cetirizine)) 10 mg PO DAILY PRN 30 days erythromycin 1 appl ophthalmic (eye) DAILY 7 days famotidine 20 mg PO BID 30 days lidocaine 5% 1 patch topical DAILY 30 days pregabalin 25 mg PO BEDTIME 30 days Ventolin HFA 90 mcg/actuation (albuterol sulfate) 2 puffs inhalation Q6H PRN 30 days NS zolpidem 5 mg PO BEDTIME PRN 30 days Tobacco use date assessed: 05/10/24 Dental Screening Dental Screen Date: 05/10/24 Did you have a dental visit in the last 12 months?: Yes Did you have a dental problem in the last 6 months where you did not have access to dental care?: No Was dental information given to patient?: Patient has dentist HPI HPI Comments History of Present Illness Details The patient is a 58-year-old female presenting with abdominal pain. She associates her abdominal pain with eating, with occurrences noted typically after meals. The history of this pain spans approximately one year. She mentioned that the pain seems to concentrate around the middle of the abdomen, aligning with the epigastric area, and describes it as quite severe, causing paleness, sweating, and shortness of breath. She was previously diagnosed with gallstones following an ultrasound over a year ago and had cholecystectomy, along with a prediabetic indication from an Hemoglobin A1c reading of 6.3% last October, which has come down to 6.1% currently, yet remains intolerant. Her medication profile includes a regimen for managing allergies, acid reflux, sleep disturbances, and depression. She has mild major depression due to a recent divorce and would like to start bupropion. She is advised that she will feel better 2-3 weeks after taking it daily. Insomnia stable with zolpidem. [facility] Medical History (Updated 05/10/24 @ 08:36 by Kimmie Wisdom MD) Arthritis Asthma GERD without esophagitis Left lateral epicondylitis Bilateral acromioclavicular joint arthritis Lumbar degenerative disc disease Degenerative disc disease, cervical Obesity (BMI 30-39.9) Surgical History History of laparoscopic cholecystectomy (07/21/23) History of colonoscopy History of tubal ligation History of section Family History Father No problems noted. Mother Breast cancer Uterine cancer Maternal Aunt Breast cancer Maternal Grandmother Breast cancer Social History Housing: Apartment Alcohol intake: never Comment: counts correct Patient Tobacco Use Status: Never used Tobacco Tobacco use type: Cigarette e-Cigarette/Vaping Use: Never Used Second Hand Smoke Exposure: No service: No Current occupational status: unemployed Sexual orientation: Straight/Heterosexual Gender identity: Female Cognitive needs: No Hearing needs: No Vision needs: Yes Female Reproductive History Menstrual Age of Menarche: 13 Questionnaire PHQ-9 Over the last 2 weeks, how often have you been bothered by any of the following problems? 1. Little interest or pleasure in doing things: several days 2. Feeling down, depressed, or hopeless: nearly every day 3. Trouble falling or staying asleep, or sleeping too much: nearly every day 4. Feeling tired or having little energy: nearly every day 5. Poor appetite or overeating: not at all 6. Feeling bad about yourself - or that you are a failure or have let yourself or your family down: not at all 7. Trouble concentrating on things, such as reading the newspaper or watching television: not at all 8. Moving or speaking so slowly that other people could have noticed. Or the opposite - being so fidgety or restless that you have been moving around a lot more than usual: not at all 9. Thoughts that you would be better off or of hurting yourself in some way: not at all Total score: 10 Depression Screening Interpretation: Positive Depression Screening Follow-up: Existing condition, New Medication prescribed and Follow-up Visit Requested Depression Screening Done: Yes 94397 - PHQ-9 Billing: Yes Source: Developed by Drs. Bin Carpenter, Cari Burk, Elieser Yanes and colleagues, with an educational chanell from [employer]. Thrive Questionnaire Date Thrive assessed: 05/10/24 I am a: Patient What is your living situation today?: I have a steady place to live Within the past 12 months, did the food you bought not last and you didn't have the money to get more?: Never true Within the past 12 months, did you worry whether your food would run out before you got money to buy more?: Never true Do you have trouble paying for medicines?: No Do you have trouble getting transportation to medical appointments?: No Do you have trouble paying your heating and electricity bill?: No Do you have trouble taking care of your child, family member or friend?: No Do you have trouble with day-to-day activities such as bathing, preparing meals, shopping, managing finances, etc.?: No Are you currently unemployed and looking for a job?: No Are you interested in more education?: No Please select the resources that you would like help with: None Currently or been in a relationship where the following occur: No concerns reported THRIVE Score: 0 AUDIT C Alcohol Use Questionnaire (AUDIT-C) 1. How often do you have a drink containing alcohol?: Never Total Score: 0 Score Reviewed/Action Taken: No FAIZA-7 AMB Questionnaire FAIZA-7 Date FAIZA - 7 assessed: 05/10/24 Feeling nervous, anxious, or on edge: 0 = Not at all Not being able to stop or control worryin = Not at all Worrying too much about different things: 0 = Not at all Trouble relaxin = Not at all Being so restless that it is hard to sit still: 0 = Not at all Becoming easily annoyed or irritable: 0 = Not at all Feeling afraid as if something awful might happen: 0 = Not at all Total FAIZA-7 score (0-4 normal; 5-9 mild; 10-14 moderate; 15-21 severe): 0 Source: Developed by Drs. Bin Carpenter, Cari Burk, Elieser Yanes and colleagues, with an educational chanell from [employer]. FAIZA-7 Assessment Billing FAIZA-7 Assessment Tool: FAIZA-7 Assessment 96038 Review of Systems Const All systems reviewed & are unremarkable except as noted in HPI and below Card Denies chest pain at rest, Denies chest pain with activity, Denies edema, Denies irregular heart rhythm, Denies claudication, Denies dyspnea, Denies dyspnea on exertion, Denies orthopnea, Denies paroxysmal nocturnal dyspnea and Denies slow heart rate Resp Denies cough, Denies dyspnea and Denies dyspnea on exertion GI Reports abdominal pain, Denies change in bowel habits, Denies excessive flatus, Denies nausea and Denies vomiting Physical exam (Primary Care) Vital Signs: Last Vital Signs Pulse 69 05/10/24 08:12 BP 114/68 05/10/24 08:12 Pulse Ox 97 05/10/24 08:12 Oxygen Delivery Method Room Air 05/10/24 08:12 BMI result Body Mass Index 31.7 BMI Assessment/Plan discussion: High BMI High, discussed plan: lifestyle, weight reduction, dietary and physical activity Tobacco/Smoking Status: Tobacco use Status Tobacco use date assessed 05/10/24 05/10/24 08:16 Patient Tobacco Use Status Never used Tobacco 05/10/24 08:16 Tobacco use type Cigarette 05/10/24 08:16 e-Cigarette/Vaping Use Never Used 05/10/24 08:16 PHQ-9: PHQ-9 Score PHQ-9: Total score 10 05/10/24 08:43 Depression Screening Interpretation: Positive Depression Screening Follow-up: Existing condition, New Medication prescribed and Follow-up Visit Requested Thrive Assessment: Date of Thrive Assessment Date Thrive assessed 05/10/24 05/10/24 08:16 Currently or been in a relationship where the following occur: No concerns reported Resp Effort & Inspection: normal respiratory effort Auscultation: clear to auscultation bilaterally Cardio Jugular venous distension: no JVD Rate: regular rate Rhythm: regular rhythm Heart sounds: S1 normal heart sound present and S2 normal heart sound present Extrem General: Yes full ROM Results AMB Hemoglobin A1c AMB Hemoglobin A1c 6.1 % Last Edit by Jane Chan CMA on 05/10/24 08:44 Results Reviewed Results Reviewed: Laboratory Last Values Hgb A1c (Clinic) 6.1 % (4.0-6.0) H 05/10/24 08:44 Coding Level of Care Code Est Pt Level 4 (84521) Complex EM visit Add On G2211 Diagnoses Abdominal pain R10.9 Mild major depression F32.0 Impaired glucose tolerance R73.02 Primary insomnia F51.01 Insomnia type: primary GERD without esophagitis K21.9 Additional Codes FAIZA-7 Assessment Billing - FAIZA-7 Assessment Tool: FAIZA-7 Assessment 59175 ([id number]) PHQ-9 - 44608 - PHQ-9 Billing: Yes ([id number]) Time Spent (min) 23 Assessment & Plan Assessment & Plan (1) Abdominal pain: Code(s): R10.9 - Unspecified abdominal pain Category: Medical (2) Mild major depression: Code(s): F32.0 - Major depressive disorder, single episode, mild Category: Medical (3) Impaired glucose tolerance: Code(s): R73.02 - Impaired glucose tolerance (oral) Category: Medical (4) Insomnia: Code(s): G47.00 - Insomnia, unspecified Category: Medical Qualifiers: Insomnia type: primary Qualified Code(s): F51.01 - Primary insomnia (5) GERD without esophagitis: Code(s): K21.9 - Gastro-esophageal reflux disease without esophagitis Category: Medical Plan For the patient's abdominal pain likely linked to gallstones, additional imaging studies and possibly a consultation with gastroenterology are recommended to elucidate and manage the condition appropriately. There will be continuous monitoring of her prediabetic condition, emphasizing lifestyle modifications for glycemic control. Exploring alternative pharmacologic strategies for the patient's allergic responses is planned. For depression, considering initiating bupropion therapy may be beneficial, alongside monitoring the effects on associated symptoms. Insomnia management will continue under the current regimen, evaluating its effectiveness periodically. Patient was informed and verbally consented to the use of an ambient scribe for clinic note documentation during this visit. I discussed with the patient the likelihood of her abdominal pain being related to gallstones and the importance of further imaging studies to clarify the cause. We talked about the need to maintain vigilance over her prediabetes through regular blood sugar monitoring and the role of lifestyle modifications. I highlighted the importance of avoiding allergens and the potential for adjusting her current medication as necessary. Regarding depression, the benefits and risks of considering bupropion as a treatment were discussed, taking into account her current symptoms and medication history. Additionally, we reviewed the plan for ongoing management of insomnia. Orders: Orders [place] upper GI series Today R10.9 - Unspecified abdominal pain US abdomen complete Today R10.9 - Unspecified abdominal pain Comprehensive [place]. Panel Fast Today R10.9 - Unspecified abdominal pain Lipid Panel Today E78.5 - Hyperlipidemia, unspecified Celiac Disease Panel Today R10.9 - Unspecified abdominal pain Complete Blood Count Auto Diff Today K80.50 - Calculus of bile duct without cholangitis or cholecystitis without obstruction AMB Hemoglobin A1c Today Z13.9 - Encounter for screening, unspecified Referrals Gastroenterology Referral R10.9 - Unspecified abdominal pain Medications: New bupropion HCl XL 150 mg PO QAM 90 tabs 0RF 90 days F32.0 - Major depressive disorder, single episode, mild Patient Instructions: - Monitor blood sugar levels regularly and maintain dietary and lifestyle changes. - Avoid known allergens and discuss potential medication alternatives with your healthcare provider. - Follow up with gastroenterology regarding your abdominal pain and previous gallstones. - Consider starting new medication for depression after discussing with your healthcare provider. - Continue current management plan for insomnia and report any changes in symptoms.
[2024-05-10 08:12] VITALS: BP 114/68; PULSE 69; O2SAT 97; BMI 31.7
--- OUTSIDE RECORDS SUMMARY | 2024-05-10 08:18 | XMS_ITS | Clinical Summary ---
Author Organization [address] [facility] Address [address] [place] [address] Phone Care Team Providers Care Medical Esthetician Name Role Phone Jerica Liz MD Primary Care Provider [phone] Allergies Active Allergy Reactions Criticality Noted Date Comments Ibuprofen 08/12/2021 Medications atorvastatin (LIPITOR) 40 mg tablet Take 1 tablet (40 mg total) by mouth every night at bedtime. 4 Active blood-gluc,BP meter,adult cuff device Check blood pressure daily, create log and follow up with log and device for review 2 Active cyclobenzaprine (FLEXERIL) 10 mg tablet as needed. 2 Active famotidine (PEPCID) 20 mg tablet TAKE 1 TABLET BY MOUTH 2 TIMES A DAY NEEDED FOR HEARTBURN. 3 Active fluticasone propionate (FLONASE) 50 mcg/actuation nasal spray spray/apply 1 spray in each nostril daily. 4 Active lidocaine (ZTlido) 1.8 % adhesive patch,medicated Apply 1 patch topically daily as needed. 3 Active montelukast (SINGULAIR) 10 mg tablet Take 1 tablet (10 mg total) by mouth 1 (one) time each day. 4 Active pantoprazole (PROTONIX) 40 mg EC tablet Take 1 tablet (40 mg total) by mouth 1 (one) time each day. 3 Active triamcinolone (KENALOG) 0.1 % cream as needed. 2 Active Active Problems Problem Noted Date Diagnosed [...] drink = 0.6 oz pur e alcohol) Comments Unknown Sex and Gender Information Value Date Recorded Sex Assigned at Not on file Legal Sex Female 11:37 PM EST Gender Identity Not on file Sexual Orientation Not on file Obstetrics History Last Filed [...] Health Maintenance Due Date Last Done Comments Diabetes: Annual Foot Exam 11/10/1975 Hepatitis B Vaccines (1 of 3 - 19+ 3-dose series) 1984 Pneumococcal Vaccine: 50+ Years (1 of 2 - PCV) 1984 Pneumococcal Vaccine: Pediatrics (0 to 5 Years) and At-Risk Patients (6 to 64 Years) (1 of 2 - PCV) 1984 Zoster Vaccines (1 of 2) 11/10/2015 [...] patient's age to complete this topic Meningococcal B Vacine Aged Out No lo nger eligible based on patient's age to complete [...] Maintenance Results * (ABNORMAL) Hemoglobin A1c (04/29/2023) Pathologist [facility] Hemoglobin A1C 6.2(A) <=5.7 % Blood Venous blood specimen / Unknown Historical Provider LAB BLOOD ORDERABLES Annabella l Result * (ABNORMAL) Lipid panel (04/29/2023) Pathologist [facility] Triglycerides 121 <=150 mg/dL Cholesterol 204(A) 0 - 200 mg/dL HDL 48 37 - 92 mg/dL LDL Cholesterol 132(A) 50 - 130 mg/dL Blood Venous blood specimen / Unknown Historical Provider MD LAB BLOOD ORDERABLES Nanabella l Result * Cervical Cancer Screening: HPV (01/20/2023) Pathologist [facility] Cervical Cancer Screening: HPV Negative, Abstracted us Historical Provider [facility] Final Result * MAMMOGRAM SCREENING BILATERAL 3D ROSHNI WITH [...] on 01/04/2023 3:45 PM. Workstation Name - [id number] Procedure Note Jaycee Chakraborty MD - 04/19/2023 This is a [...] MD on 01/04/2023 3:45PM. Workstation Name - [id number] Result [facility] Dev Paige DO IMG BI PROCEDURES Final Result * Diabetes Eye Exam (12/22/2022) [facility] Diabetes: Annual Retina Eye Exam Abstracted Result [facility] Provider HEALTH MAINTENANCE Final Result * Annual BMP Blood Test (11/23/2022) [facility] Annual BMP Blood Test Abstracted Result [facility] Provider HEALTH MAINTENANCE Final Result * HIV Screening (11/23/2022) [facility] HIV Screening Abstracted Result [facility] Provider HEALTH MAINTENANCE Final Result * Hepatitis C Screening (11/23/2022) [facility] Hepatitis C Screening Abstracted [facility] Provider HEALTH MAINTENANCE Final Result from Last 3 Months or Most Recently Relevant to Health Maintenance Insurance [place] Care Teams Medical Esthetician Relationship Specialty Start Date End Date Jerica Liz MD [address] [place] [address] PCP - General Internal Medicine 08/12/21
--- OUTSIDE RECORDS SUMMARY | 2024-05-10 08:18 | XMS_ITS | Clinical Summary ---
Author Organization [employer] [facility] Address [address] [place] [address] Care Team Providers Care Bilingual Counter Sales Retail Name Role Phone Jerica Liz MD Primary [...] age to complete this topic Care Teams Bilingual Counter Sales Retail Relationship Specialty Start Date End Date Jerica Liz MD PCP - General Internal Medicine 08/12/21
== END 2024-05-10 08:45 | disposition home or self-care (01) ==
PROVIDERS: PCP Internal Medicine; Visit Provider Internal Medicine
DX: R10.9 Unspecified abdominal pain (principal); F32.0 Major depressive disorder, single episode, mild; R73.02 Impaired glucose tolerance (oral); F51.01 Primary insomnia; K21.9 Gastro-esophageal reflux disease without esophagitis; Z13.9 Encounter for screening, unspecified

== ENCOUNTER 2024-06-26 07:36 | Outpatient (REF) | payer OTHER, SELFPAY ==
--- NOTE | ~2024-06-26 | US_ITS ---
EXAMINATION: US ABDOMEN HISTORY: R10.9 - Unspecified abdominal pain TECHNIQUE: Real-time grayscale ultrasound imaging of the abdomen was performed and images were reviewed. COMPARISON: Comparison is made with the prior examination dated 06/22/2023. FINDINGS: Liver: The right lobe of the liver measures 14.1 cm in size. The left lobe of the liver measures 8.9 cm in size. The liver demonstrates increased echotexture, consistent with steatosis. There is a 2.9 x 1.6 x 2.2 cm cyst in the right lobe. No intrahepatic biliary ductal dilatation is identified. There is normal hepatopedal flow in the portal vein. Gallbladder and biliary tree: The gallbladder is surgically absent. The common bile duct is normal in caliber measuring 5 mm. Kidneys: The right kidney measures 10.6 cm in length. The left kidney measures 10.7 cm in length. The kidneys are unremarkable, without evidence of masses, hydronephrosis, or calculi. Pancreas: The pancreatic head, neck, and body are unremarkable. The pancreatic tail is obscured by bowel gas. Spleen: The spleen is normal in size and contour, measuring 9.3 cm in length. Abdominal aorta and inferior vena cava: The visualized portions of the abdominal aorta and inferior vena cava are normal in caliber. There is no free fluid in the abdomen. US/US abdomen complete IMPRESSION: Hepatic steatosis. 2.9 x 1.6 x 2.2 cm hepatic cyst. Status post cholecystectomy. Otherwise unremarkable abdominal ultrasound. Electronically signed by: Bin Bowen MD 06/26/2024 08:54 AM EDT
--- OUTSIDE RECORDS SUMMARY | 2024-06-26 07:39 | XMS_ITS | Clinical Summary ---
Author Organization [facility] Address [address] [place] [address] Care Team Providers Care Navy Material Inspector Name Role Phone Jerica Liz MD Primary Care Provider Unav ailable Allergies Active Allergy Reactions Criticality Noted Date Comments Ibuprofen 08/12/2021 Medications Medication Sig Dispensed Refills Start Date End Date Status triamcinolone (KENALOG) 0.1 % cream as needed. 0 01/13/2022 Active cyclobenzaprine (FLEXERIL) 10 MG tablet as needed. 0 01/13/2022 Active Blood Pressure Monitoring (Adult Blood Pressure Cuff Lg) KITIndications:Elev ated blood pressure reading Check blood pressure daily, create log and follow up with log and device for review 1 kit 0 02/03/2022 Active Lidocaine (ZTlido) 1.8 % PTCHIndications:Chr onic bilateral low back pain without sciatica Apply [...] nostril daily. 11.1 mL 1 05/11/2023 Active atorvastatin (LIPITOR) tablet 40 mg Take [...] age to complete this topic Care Teams Navy Material Inspector Relationship Specialty Start Date End Date Jerica Liz MD PCP - General Internal Medicine 08/12/21
--- OUTSIDE RECORDS SUMMARY | 2024-06-26 07:39 | XMS_ITS | Encounter Summary ---
Author Organization [facility] Address [address] [place] [address] Care Team Providers Care Staff Rn Name Role Phone Kimmie Wisdom MD Primary Care Provider [phone] Reason for Visit * Reason Comments Foot Pain * Consultation (Routine) - Authorized Specialty Diagnoses / Procedures Referred By Contact Referred To Contact Podiatry / Orthopaedic Surgery Diagnoses Pain in right foot Kimmie Wisdom MD [address] [place] [address] Physician Associ D/B/A: [facility] [place], [place] Phone: tel: fax: Dung Riley DPM [address] [address] Phone: tel: fax: Referral ID Status Reason Start Date Expiration Date Visits Requested Visits Authorized [id number] Authorized Specialty Services Required 04/23/2024 04/23/2025 1 1 Encounter Details Date Type Department Care Team (Late st Contact Info) Description 06/25/2024 1:45 PM EDT Consult Orthopedic Surgery - [place] [address] [id number] Dung Riley DPM [address] [address] Pain in right foot (Primary Dx); Hammertoes of both feet; Ingrown toenail of right foot Social History Tobacco Use Types Packs/Day Years Used Date Smoking Tobacco: Never Smokeless Tobacco: Never Alcohol Use Standard Drinks/Week Comments Never 0 (1 standard drink = 0.6 oz pur e alcohol) Comments Unknown Sex and Gender Information Value Date Recorded Sex Assigned at Not on file Legal Sex Female 2:46 PM EST Gender Identity Not on file Sexual Orientation Not on file documented as of this encounter Last Filed Vital Signs Vital Sign Reading Time Taken Comments Blood Pressure - - Pulse - - Temperature - - Respiratory Rate - - Oxygen Saturation - - Inhaled Oxygen Concentration - - Weight 83.5 kg (184 lb) 06/25/2024 1:45 PM EDT Height 160 cm (5' 3 ) 06/25/2024 1:45 PM EDT Body Mass Index 32.59 06/25/2024 1:45 PM EDT documented in this encounter Progress Notes * Dung Riley, DPM - 06/25/2024 1:45 PM EDT Referring MD: Kimmie Wisdom MD Last PCP visit: 05/11/2024 IDENTIFIER: @TITLE@ Jax Morton is a 58 y.o. year old female who presents for consultation. CC: Right foot pain HPI: 58-year-old female presents office chief complaint of right fourth digit pain. Patient notes she has been having some redness and swelling with drainage. Patient is concerned she may have an ingrown toenail. Patient denies fever nausea vomiting shortness of breath. Patient has been using soaks to decrease the swelling ROS: GENERAL: Pt denies nausea, fever, vomiting, chills, or shortness of breath. Pt in NAD. CARDIOLOGY: pt denies chest pain, palpitations LUNGS: pt denies shortness of breath MUSCULOSKELETAL: See HPI, otherwise no joint pain or swelling, back pain, or muscle pain. SKIN: see HPI, otherwise no lesions, rash or itching NEURO: No persistent headache, weakness or numbness The remainder of the review of systems is noncontributory PAST MEDICAL HISTORY: Patient Active Problem List Diagnosis Mixed hyperlipidemia Mild intermittent asthma without complication Gastroesophageal reflux disease Current mild episode of major depressive disorder without prior episode ([facility] V24) Controlled type 2 diabetes mellitus without complication, without long-term current use of insulin ([facility] V24, [facility] V28) Class 1 obesity due to excess calories with serious comorbidity and body mass index (BMI) of 33.0 to 33.9 in adult SOCIAL HISTORY: Social History Tobacco Use Smoking status: Never Smokeless tobacco: Never Substance Use Topics Alcohol use: Never ACTIVE MEDICATIONS: Outpatient Medications Marked as Taking for the 06/25/24 encounter (Consult) with Dung Riley DPM Medication Sig Dispense Refill amoxicillin (AMOXIL) 500 mg capsule take 1 capsule by mouth 3 times a day until gone buPROPion XL (WELLBUTRIN XL) 150 mg 24 hr tablet take 1 tablet by mouth every morning for 90 days erythromycin 5 mg/gram (0.5 %) ophthalmic ointment APPLY INTO THE AFFECTED EYE ONCE DAILY FOR 7 DAYS HYDROcodone-acetaminophen (NORCO) 5-325 mg per tablet Take 1 tablet by mouth. every 4 to 6 hours asneeded for pain zolpidem (AMBIEN) 5 mg tablet PLEASE SEE ATTACHED FOR DETAILED DIRECTIONS ALLERGIES: @ALL@ PHYSICAL EXAM: Height 1.6 m (63 ), weight 83.5 kg (184 lb). PODIATRIC EXAMINATION: GENERAL: Patient appears well nourished, with NAD. VASCULAR: Dorsalis pedis pulses are 2/4 bilaterally and Posterior tibial pulses are 2/4 bilaterally. Capillary filling time within normal limits the digits. No pallor on elevation or rubor on dependency. Positive hair growth. No varicosities. Denies rest pain or claudication pain. NEUROLOGICAL: Sharp/dull sensation intact, protective sensation intact 10/10 with 5.07 semmes dana bilaterally, vibratory sensation with tuning fork intact to the tibial tuberosity. ORTHOPEDIC: Good muscle strength 5/5 of all flexors and extensors. Dorsi flexion of ankle ,10 degrees, plantar flexion WNL. No muscle atrophy. Frontal plane rotation of the digits 2 through 5 bilaterally with small curvature that is reducible. DERMATOLOGICAL:.No masses or skin lesions noted. Normal skin temperature, normal skin turgor. Some swelling to the left medial border of the right fourth toe with a nail that is impinging on the softtissue border BIOMECHANICS: STJ ROM wnl, MTJ ROM wnl, 1st MPJ ROM wnl. IMPRESSION: 1. Pain in right foot 2. Hammertoes of both feet 3. Ingrown toenail of right foot PLAN: Pt was seen and examined, history reviewed. Patient was educated that she has an ingrowing toenail to the medial border of the right toe. Patient was educated on conservative versus surgical intervention. Patient would like to hold off on on surgical procedure as her redness and swelling seems to be decreasing currently. Patient understands that the nail will cause soft tissue infection in the future and at that time she should come in immediately for matrixectomy procedure Dung Riley DPM cc: Kimmie Wisdom MD documented in this encounter Plan of Treatment Not on file documented as of this encounter Visit Diagnoses Diagnosis Pain in right foot- Primary Pain in soft tissues of limb Hammertoes of both feet Ingrown toenail of right foot documented in this encounter Historical Medications * This list may reflect changes made after this encounter. amoxicillin (AMOXIL) 500 mg capsule take 1 capsule by mouth 3 times a day until gone 01/19/2024 buPROPion XL (WELLBUTRIN XL) 150 mg 24 hr tablet take 1 tablet by mouth every morning for 90 days 05/24/2024 erythromycin 5 mg/gram (0.5 %) ophthalmic ointment APPLY INTO THE AFFECTED EYE ONCE DAILY FOR 7 DAYS 04/04/2024 HYDROcodone-acet aminophen (NORCO) 5-325 mg per tablet Take 1 tablet by mouth. every 4 to 6 hours as needed for pain 07/21/2023 zolpidem (AMBIEN) 5 mg tablet PLEASE SEE ATTACHED FOR DETAILED DIRECTIONS 08/23/2023 added in this encounter Orders Outpatient Referral Count Last Ordered Date Fir st Ordered Date AMB REFERRAL TO PODIATRY 1 06/25/2024 documented in this encounter Care Teams Staff Rn Relationship Specialty Start Date End Date Kimmie Wisdom MD [address] [place] [address] , [address] Physician Associ D/B/A: [facility] LAUREN Penny PCP - General Internal Medicine 04/23/24 documented as of this encounter
--- OUTSIDE RECORDS SUMMARY | 2024-06-26 07:39 | XMS_ITS | Clinical Summary ---
Author Organization 175 [facility] Address [address] [place] [address] Phone Care Team Providers Care Curriculum Consultant Name Role Phone Kimmie Wisdom MD Primary Care Provider [phone] Allergies Active Allergy Reactions Criticality Noted Date [...] 0.1 % cream as needed. 2 Active zolpidem (AMBIEN) 5 mg tablet PLEASE SEE ATTACHED FOR DETAILED DIRECTIONS 4 Active HYDROcodone-ceci taminophen (NORCO) 5-325 mg per tablet Take 1 tablet by mouth. every 4 to 6 hours as needed for pain 4 Active erythromycin 5 mg/gram (0.5 %) ophthalmic ointment APPLY INTO THE AFFECTED EYE ONCE DAILY FOR 7 DAYS 5 Active buPROPion XL (WELLBUTRIN XL) 150 mg 24 hr tablet take 1 tablet by mouth every morning for 90 days 5 Active amoxicillin (AMOXIL) 500 mg capsule take 1 capsule by mouth 3 times a day until gone 4 Active Active Problems Problem Noted Date Diagnosed Date Class 1 obesity due to exces s calories with serious comorbidity and body mass index (BMI) of 33.0 to 33.9 in adult 10/31/2023 Mild intermittent asthma without complication Current mild episode of micheline r depressive disorder without prior episode ([facility] V24) 04/19/2023 Mixed hyperlipidemia 12/14/2022 Controlled type 2 diabetes m ellitus without complication, without long-term current use of insulin ([facility] V24, [facility] V28) 12/14/2022 Gastroesophageal reflux disease 11/23/2022 Encounters Date Type Department Care Team Description 06/25/2024 1:45 PM EDT Consult Orthopedic Surgery - [address] [address] Dung Riley DPM Pain in right foot (Primary Dx); Hammertoes of both feet; Ingrown toenail of right foot from Last 3 Months Immunizations Name Administration Dates Next Due Tdap [...] Mass Index 32.59 06/25/2024 1:45 PM EDT Plan of Treatment Health Maintenance Due Date Last Done Comments Diabetes: Annual Foot Exam 11/10/1975 Hepatitis B Vaccines (1 of 3 - 19+ 3-dose series) 1984 Pneumococcal Vaccine: 50+ Years (1 of 2 - PCV) 1984 Pneumococcal Vaccine: Pediatrics (0 to 5 Years) and At-Risk Patients (6 to 64 Years) (1 of 2 - PCV) 1984 Zoster Vaccines (1 of 2) 11/10/2015 COVID-19 Vaccine (2023-2 5 season) 2023 Diabetes: Annual GFR (Glomerular Filtration Rate) 11/24/2023 11/23/2022, 11/23/2022 Diabetes: Annual Retina Eye Exam 12/23/2023 12/22/2022 Colorectal Cancer Screening: Colonoscopy 04/24/2024 Depression Screening 04/24/2024 Social Influencers of Health Screening 04/24/2024 Diabetes: Annual Urine Albumin-Creatinine Ratio (uACR) 06/01/2024 Diabetes: Blood Sugar Contro l Test (HGBA1C) 06/01/2024 04/29/2023, 04/29/2023, 11/23/2022 Influenza Vaccine (Season Ended) 2024 Breast Cancer Screening 01/04/2025 01/04/2023 Cervical Cancer [...] age to complete this topic Meningococcal B Vaccine Aged Out No l onger eligible based on patient's age to complete [...] (ABNORMAL) Hemoglobin A1c (04/29/2023) Hemoglobin A1C 6.2(A) <=5.7 % Blood Venous blood specimen / Unknown [facility] Provider MD LAB BLOOD ORDERABLES Annabella l Result * (ABNORMAL) Lipid panel (04/29/2023) Triglycerides 121 <=150 mg/dL Cholesterol 204(A) 0 - 200 mg/dL HDL 48 37 - 92 mg/dL LDL Cholesterol 132(A) 50 - 130 mg/dL Blood Venous blood specimen / Unknown Result [facility] Provider LAB BLOOD ORDERABLES Annabella l Result * Cervical Cancer Screening: HPV (01/20/2023) Cervical Cancer Screening: HPV Negative, Abstracted [facility] Provider HEALTH MAINTENANCE Final Result * MAMMOGRAM SCREENING BILATERAL 3D [...] on 01/04/2023 3:45 PM. Workstation Name - [id number] Procedure Note Jaycee Chakraborty MD - 04/19/2023 [...] MD on 01/04/2023 3:45PM. Workstation Name - [id number] Dev Paige DO IMG BI PROCEDURES Final Result * Diabetes Eye Exam (12/22/2022) Diabetes: Annual Retina Eye Exam Abstracted us Historical Provider HEALTH MAINTENANCE Final Result * Annual BMP Blood Test (11/23/2022) Annual BMP Blood Test Abstracted Historical Provider HEALTH MAINTENANCE Final Result * HIV Screening (11/23/2022) HIV Screening Abstracted Historical Provider HEALTH MAINTENANCE Final Result * Hepatitis C Screening (11/23/2022) Hepatitis C Screening Abstracted Historical Provider HEALTH MAINTENANCE Final Result from Last 3 Months or Most Recently Relevant to Health Maintenance Insurance [address] [place] [address] HEALTH PLAN MEDICAID - [place] Care Teams Curriculum Consultant Relationship Specialty Start Date End Date Kimmie Wisdom MD NPI: [id number] [place] [address] , [address] [place] [address] Physician Associ D/B/A: [facility] LAUREN Penny PCP - General Internal Medicine 04/23/24
== END 2024-06-26 07:37 | disposition home or self-care (01) ==
LOC: HO.US 07:36
PROVIDERS: PCP Internal Medicine; Visit Provider Internal Medicine
DX: R10.9 Unspecified abdominal pain (principal)
CPT/HCPCS: 76700

== ENCOUNTER → 2024-06-26 07:38 | Outpatient (BNV) | payer OTHER, SELFPAY | PROVIDERS: PCP Internal Medicine; Visit Provider Radiology Diagnostic Radiology | DX: K76.0 Fatty (change of) liver, not elsewhere classified (principal); Q44.6 Cystic disease of liver | CPT/HCPCS: 76700 ==

== ENCOUNTER 2024-08-02 08:05 | Outpatient (REF) | payer OTHER, SELFPAY ==
--- NOTE | ~2024-08-02 | FL_ITS ---
EXAMINATION: XR FLUOROSCOPY UPPER GI SERIES CLINICAL INFORMATION: Unspecified abdominal pain, GERD. COMPARISON: No prior. Correlation made with CT abdomen and pelvis 06/23/2018. TECHNIQUE: Fluoroscopic air contrast upper GI examination was performed utilizing standard techniques with thin and thick barium and effervescent granules. Numerous spot images were obtained. Several fluoroscopic image hold cine sequences were also obtained. FINDINGS: UPPER GI SERIES: Lateral cine images of the oropharynx and hypopharynx demonstrate normal swallow mechanism with normal epiglottic inversion and soft palate elevation. No laryngeal penetration, glottic or subglottic aspiration identified. No nasopharyngeal reflux present. Hypopharyngeal structures appear normal without evidence of mass or diverticulum. There was no significant cricopharyngeal achalasia. Dual and single contrast images of the esophagus demonstrate normal caliber, contour, and mucosal pattern. No evidence of stricture, mass, or ulcerations identified. Esophageal peristalsis was mildly to moderately disordered. Feline contraction pattern observed. No definite evidence of hiatus hernia identified. There is episodic gastroesophageal reflux visualized to the level of the thoracic inlet. Dual contrast and single contrast images of the stomach demonstrated normal contour and mucosal pattern without evidence of mass, ulceration, or other abnormality. Contrast freely passed into the gastric antrum and duodenal bulb without delay. Single and air-contrast images of the duodenal bulb demonstrate no abnormality. The duodenal sweep has a normal appearance, course, and mucosal fold appearance. There are cholecystectomy clips present. FLUOROSCOPY TIME: 2 minutes, and 37 seconds Number of Spot Images:10 Number of cines obtained: 8 DOSE AREA PRODUCT: [id number] [id number] FL/FL upper GI w air IMPRESSION: 1. Mild to moderately disordered esophageal peristalsis. Feline contraction pattern observed, suggesting chronic reflux. 2. Gastroesophageal reflux seen episodically to the level of the thoracic inlet. 3. No definite hiatus hernia. 4. No gross abnormality of the stomach, duodenal bulb, duodenum, or proximal small bowel. 5. Cholecystectomy. Electronically signed by: Kushal Lan MD 08/02/2024 09:07 AM EDT
--- OUTSIDE RECORDS SUMMARY | 2024-08-02 08:09 | XMS_ITS | Clinical Summary ---
Author Organization [employer] [facility] Address [address] [place] [address] Care Team Providers Care Carpet Finishing Supervisor Name Role Phone Jerica Liz MD Primary [...] age to complete this topic Care Teams Carpet Finishing Supervisor Relationship Specialty Start Date End Date Jerica Liz MD PCP - General Internal Medicine 08/12/21
--- OUTSIDE RECORDS SUMMARY | 2024-08-02 08:09 | XMS_ITS | Clinical Summary ---
Author Organization 175 [facility] Address [address] [place] [address] Phone Care Team Providers Care Produce Assistant Name Role Phone Kimmie Wisdom MD Primary Care Provider [phone] Allergies Active Allergy Reactions Criticality Noted Date [...] micheline r depressive disorder without prior episode ([facility] V24) 04/19/2023 Mixed hyperlipidemia 12/14/2022 Controlled type 2 diabetes m ellitus without complication, without long-term current use of insulin ([facility] V24, [facility] V28) 12/14/2022 Gastroesophageal reflux disease 11/23/2022 Encounters Date Type Department Care Team Description 06/25/2024 1:45 PM EDT Consult Orthopedic Surgery - [address] [address] Dung Riley DPM Pain in [...] % Blood Venous blood specimen / Unknown [facility] Provider MD LAB BLOOD ORDERABLES Annabella l Result * (ABNORMAL) Lipid panel (04/29/2023) Triglycerides 121 <=150 mg/dL Cholesterol 204(A) 0 - 200 mg/dL HDL 48 37 - 92 mg/dL LDL Cholesterol 132(A) 50 - 130 mg/dL Blood Venous blood specimen / Unknown Result [facility] Provider LAB BLOOD ORDERABLES Annabella l Result * Cervical Cancer Screening: HPV (01/20/2023) Cervical Cancer Screening: HPV Negative, Abstracted [facility] Provider HEALTH MAINTENANCE Final Result * MAMMOGRAM [...] on 01/04/2023 3:45 PM. Workstation Name - [id number] Procedure Note Jaycee Chakraborty MD - 04/19/2023 [...] MD on 01/04/2023 3:45PM. Workstation Name - [id number] Dev Paige DO IMG BI PROCEDURES Final [...] Most Recently Relevant to Health Maintenance [place] [address] [place] [address] HEALTH PLAN MEDICAID - [place] Care Teams Produce Assistant Relationship Specialty Start Date End Date Kimmie Wisdom MD NPI: [id number] [place] [address] , [address] [place] [address] Physician Associ D/B/A: [facility] LAUREN Penny PCP - General Internal Medicine 04/23/24
== END 2024-08-02 08:06 | disposition home or self-care (01) ==
LOC: HO.XRAY 08:05
PROVIDERS: PCP Internal Medicine; Visit Provider Internal Medicine
DX: R10.9 Unspecified abdominal pain (principal)
CPT/HCPCS: 74246

== ENCOUNTER → 2024-08-02 08:06 | Outpatient (BNV) | payer OTHER, SELFPAY | PROVIDERS: PCP Internal Medicine; Visit Provider Radiology Diagnostic Radiology | DX: K21.9 Gastro-esophageal reflux disease without esophagitis (principal); K22.4 Dyskinesia of esophagus; Z90.5 Acquired absence of kidney | CPT/HCPCS: 74246 ==

== ENCOUNTER 2024-09-12 11:56 | Outpatient (AMB) | payer OTHER, SELFPAY ==
[2024-09-12 12:08] VITALS: BP 129/80; PULSE 68; BMI 32.0
--- NOTE | 2024-09-12 12:08 | MHC.OFFVIS ---
Vital Signs 09/12/24 12:08 Height 5 ft 3 in Weight 180 lb 12.465 oz BMI 32.0 BP 129/80 Blood Pressure Location Lt brachial Position Sitting Pulse 68 Intake Visit Reasons: Unspecified abdominal pain Intake Note: Salena presents in the office as a new patient for unspecified abdominal pains. CC: She states that she is here today due to stomach pains - she does also get GERD. Business Quality Assurance Analyst Required: Yes Allergies hazelnut (HAZELNUT) Allergy (Severe, Verified 09/12/24 12:08) ANGIOEDEMA, NUMBNESS ibuprofen (From MOTRIN) Allergy (Severe, Verified 09/12/24 12:08) RASH, FACIAL SWELLING, anaphylaxis, face swelling peanut (PEANUT) Allergy (Severe, Verified 09/12/24 12:08) SWELLING tramadol Allergy (Severe, Verified 09/12/24 12:08) rash hydrocodone Allergy (Mild, Verified 09/12/24 12:08) Redness of Skin HPI Comments Details: 58 y.o F with PMH of who is here for abd pain. 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 Reports 2 years of epigastric pain with heartburn to mid chest with nausea. Reports had CCY for similar sx last year. Was doing ok for a few months and then sx recurred. Sx occur 1-2 times a week but each episode lasts almost a day. Was prescribed famotidine 20 BID by PCP which the pt takes PRN. Abd 06/2024: Liver: The right lobe of the liver measures 14.1 cm in size. The left lobe of the liver measures 8.9 cm in size. The liver demonstrates increased echotexture, consistent with steatosis. There is a 2.9 x 1.6 x 2.2 cm cyst in the right lobe. No intrahepatic biliary ductal dilatation is identified. There is normal hepatopedal flow in the portal vein. UGIS 07/2024: 1. Mild to moderately disordered esophageal peristalsis. Feline contraction pattern observed, suggesting chronic reflux. 2. Gastroesophageal reflux seen episodically to the level of the thoracic inlet. 3. No definite hiatus hernia. 4. No gross abnormality of the stomach, duodenal bulb, duodenum, or proximal small bowel. 5. Cholecystectomy. [facility] Medical History Arthritis Asthma GERD without esophagitis Left lateral epicondylitis Bilateral acromioclavicular joint arthritis Lumbar degenerative disc disease Degenerative disc disease, cervical Obesity (BMI 30-39.9) Surgical History History of laparoscopic cholecystectomy (07/21/23) History of colonoscopy History of tubal ligation History of section Family History Father No problems noted. Mother Breast cancer Uterine cancer Maternal Aunt Breast cancer Maternal Grandmother Breast cancer Social History Housing: Apartment Alcohol intake: never Comment: counts correct Patient Tobacco Use Status: Never used Tobacco Tobacco use type: Cigarette e-Cigarette/Vaping Use: Never Used Second Hand Smoke Exposure: No service: No Current occupational status: unemployed Sexual orientation: Straight/Heterosexual Gender identity: Female Cognitive needs: No Hearing needs: No Vision needs: Yes Female Reproductive History Menstrual Age of Menarche: 13 Review of Systems Const All systems reviewed & are unremarkable except as noted in HPI and below Physical Exam Vital Signs: Last Vital Signs Pulse 68 09/12/24 12:08 BP 129/80 09/12/24 12:08 BMI result Body Mass Index 32.0 No apparent distress Nonicteric Abdomen soft, nondistended Alert and oriented x3, normal gait Assessment & Plan Assessment & Plan (1) GERD without esophagitis: Code(s): K21.9 - Gastro-esophageal reflux disease without esophagitis Category: Medical (2) Liver cyst: Code(s): K76.89 - Other specified diseases of liver Category: Medical Plan Reviewed with the patient that epigastric symptoms likely secondary to reflux, as order an upper GI series. Has poor control with p.r.n. famotidine. Will recommend switching to daily omeprazole for at least 8-12 weeks. If patient has minimal response to PPI therapy, will proceed to EGD. In terms of liver cyst, this was noted on the ultrasound incidentally. MRI liver protocol ordered for further evaluation. Follow-up in 2 months Orders: Orders Liver Panel 2 Months K76.89 - Other specified diseases of liver MR abdomen wo/w con Today K76.89 - Other specified diseases of liver Medications: New omeprazole 20 mg PO DAILY 90 caps 0RF 90 days Discontinued famotidine Discontinued Reason: Doctor's Order 20 mg PO BID 30 days 60 tabs 6RF Coding Level of Care Code New Pt Level 4 (71679) Diagnoses GERD without esophagitis K21.9 Liver cyst K76.89
--- OUTSIDE RECORDS SUMMARY | 2024-09-12 12:38 | XMS_ITS | Clinical Summary ---
Author Organization 175 [facility] Address [address] [place] [address] Phone Care Team Providers Care Varnishing Unit Tool Setter Name Role Phone Kimmie Wisdom MD Primary Care Provider [phone] Allergies Active Allergy Reactions Criticality Noted Date [...] micheline r depressive disorder without prior episode ([facility] V24) 04/19/2023 Mixed hyperlipidemia 12/14/2022 Controlled type 2 diabetes m ellitus without complication, without long-term current use of insulin ([facility] V24, [facility] V28) 12/14/2022 Gastroesophageal reflux disease 11/23/2022 Encounters Date Type Department Care Team Description 06/25/2024 1:45 PM EDT Consult Orthopedic Surgery - [address] [address] Dung Riley DPM Pain in [...] % Blood Venous blood specimen / Unknown [facility] Provider MD LAB BLOOD ORDERABLES Annabella l Result * (ABNORMAL) Lipid panel (04/29/2023) Triglycerides 121 <=150 mg/dL Cholesterol 204(A) 0 - 200 mg/dL HDL 48 37 - 92 mg/dL LDL Cholesterol 132(A) 50 - 130 mg/dL Blood Venous blood specimen / Unknown Result [facility] Provider LAB BLOOD ORDERABLES Annabella l Result * Cervical Cancer Screening: HPV (01/20/2023) Cervical Cancer Screening: HPV Negative, Abstracted [facility] Provider HEALTH MAINTENANCE Final Result * [...] No suspicious microcalcifications or masses are seen. CONCLUSION: No mammographic evidence to suggest malignancy. RECOMMENDATION: Continue with yearly screening mammography. NOTE: Patient has been informed about results of this screening mammogram, by a patient letter with 'plain language report'. BI-RADS Category 2: Benign findings. PQRI: 3342F. Report reviewed and signed by : Dr. Jaycee Chakraborty MD on 01/04/2023 3:45 PM. Workstation Name - [id number] Procedure Note Jyacee Chakraborty MD - 04/19/2023 This is a [...] MD on 01/04/2023 3:45PM. Workstation Name - [id number] Dev Paige DO IMG BI PROCEDURES Final Result * Diabetes Eye Exam (12/22/2022) Diabetes: Annual Retina Eye Exam Abstracted Historical Provider HEALTH MAINTENANCE Final Result * Annual BMP Blood Test (11/23/2022) Annual BMP Blood Test Abstracted Historical Provider HEALTH MAINTENANCE Final Result * HIV Screening (11/23/2022) Pathologist [facility] HIV Screening Abstracted Historical Provider MD HEALTH MAINTENANCE Final Result * Hepatitis C Screening (11/23/2022) Pathologist [facility] Hepatitis C Screening Abstracted Historical Provider MD HEALTH MAINTENANCE Final Result from Last 3 Months or Most Recently Relevant to Health Maintenance [place] [address] [address] [place] [address] HEALTH PLAN MEDICAID - [place] Care Teams Varnishing Unit Tool Setter Relationship Specialty Start Date End Date Kimmie Wisdom MD [address] [place] [address] , [address] [facility] Physician Associ D/B/A: [facility] LAUREN Penny PCP - General Internal Medicine 04/23/24
--- OUTSIDE RECORDS SUMMARY | 2024-09-12 12:38 | XMS_ITS | Clinical Summary ---
Author Organization [employer] [facility] Address [address] [place] [address] Care Team Providers Care Final Installer Inspector Name Role Phone Jerica Liz MD [...] 88 05/11/2023 2:32 PM EST Temperature 36.5 C (97.7 F) 05/11/2023 2:32 PM EST Respiratory Rate - - Oxygen Saturation 98% [...] age to complete this topic Care Teams Final Installer Inspector Relationship Specialty Start Date End Date Jerica Liz MD PCP - General Internal Medicine 08/12/21
== END 2024-09-12 12:48 | disposition home or self-care (01) ==
LOC: HO.HGI 11:56
PROVIDERS: PCP Internal Medicine; Visit Provider Internal Medicine
DX: K21.9 Gastro-esophageal reflux disease without esophagitis (principal); K76.89 Other specified diseases of liver
CPT/HCPCS: 99204

== ENCOUNTER → 2024-09-12 11:56 | Outpatient (BNVA) | payer OTHER, SELFPAY | PROVIDERS: PCP Internal Medicine; Visit Provider Internal Medicine | DX: K21.9 Gastro-esophageal reflux disease without esophagitis (principal); K76.89 Other specified diseases of liver | CPT/HCPCS: 99202 ==

== ENCOUNTER 2024-09-18 21:36 | Emergency (ER) | payer OTHER, SELFPAY ==
--- NOTE | ~2024-09-18 | XR_ITS ---
CLINICAL HISTORY: injury swollen middle finger pain 3 view left hand Comparison: None provided Findings: Avulsion fracture at the dorsal base of the 3rd distal phalanx. Associated soft tissue swelling. Moderate triscaphe and 1st carpometacarpal degenerative change. No erosions. No radiopaque foreign body. IMPRESSION: Avulsion fracture at the dorsal base of the 3rd distal phalanx. Associated soft tissue swelling. This document has been electronically signed by: Graciela Romero MD on 09/19/2024 00:29:09
[2024-09-18 22:20] VITALS: BP 157/76; PULSE 73; RESP 18; TEMP 36.5; O2SAT 99; BMI 32.9
--- OUTSIDE RECORDS SUMMARY | 2024-09-19 01:12 | XMS_ITS | Clinical Summary ---
Author Organization [email or web address] [facility] Address [address] [place] [address] Care Team Providers Care High Man Name Role Phone Jerica Liz MD Primary [...] age to complete this topic Care Teams High Man Relationship Specialty Start Date End Date Jerica Liz MD PCP - General Internal Medicine 08/12/21
--- NOTE | 2024-09-19 03:52 | ED.EXTPRO ---
HPI - Extremity Problem General Chief complaint: Extremity Injury, Upper Stated complaint: 2 wks since injury to right hand Time Seen by Provider: 09/19/24 02:12 Source: patient Limitations: no limitations History of Present Illness ED Provider: Liliana Cisneros PA-C HPI Narrative: 58-year-old female presents with left 3rd digit pain for 2 weeks. Patient states she was playing volleyball when she jammed 1 of her fingers. The pain has worsened. She has yet to be assessed medically. Related Data Home Medications ?Medication ?Instructions ?Recorded ?Confirmed acetaminophen 500 mg tablet 500 mg PO Q6H PRN pain 03/18/20 05/10/24 Previous Rx's ?Medication ?Instructions ?Recorded Ventolin HFA 90 mcg/actuation 2 puff inhalation Q6H PRN 06/09/23 aerosol inhaler (albuterol sulfate) shortness of breath or wheezing 30 days #8 grams cetirizine 10 mg tablet (All Day 10 mg PO DAILY PRN allergy 06/09/23 Allergy (cetirizine)) symptoms 30 days #30 tabs zolpidem 5 mg tablet 5 mg PO BEDTIME PRN insomnia 30 08/23/23 days #30 tabs pregabalin 25 mg capsule 25 mg PO BEDTIME 30 days #30 caps 10/27/23 erythromycin 5 mg/gram (0.5 %) eye 1 appl ophthalmic (eye) DAILY 7 04/04/24 ointment days #3.5 grams lidocaine 5 % topical patch 1 patch topical DAILY 30 days #30 04/04/24 ea bupropion HCl 150 mg 24 hr tablet, 150 mg PO QAM 90 days #90 tabs 08/20/24 extended release omeprazole 20 mg capsule,delayed 20 mg PO DAILY 90 days #90 caps 09/12/24 release acetaminophen 500 mg tablet 1,000 mg (2 x 500 mg) PO Q8H PRN 09/19/24 (Acetaminophen Extra Strength) pain #24 tabs Allergies Allergy/AdvReac Type Severity Reaction Status Date / Time hazelnut (HAZELNUT) Allergy Severe ANGIOEDEMA, Verified 09/18/24 22:24 NUMBNESS ibuprofen (From MOTRIN) Allergy Severe RASH, Verified 09/18/24 22:24 FACIAL SWELLING, anaphylaxis, face swelling peanut (PEANUT) Allergy Severe SWELLING Verified 09/18/24 22:24 tramadol Allergy Severe rash Verified 09/18/24 22:24 hydrocodone Allergy Mild Redness of Verified 09/18/24 22:24 Skin Review of Systems Review of Systems: Yes all other systems are reviewed and are negative Constitutional: Constitutional: Denies fatigue and Denies fever(s) Musculoskeletal: Musculoskeletal: Reports arthralgias and Reports joint swelling Endocrine: Endocrine: Denies fatigue PMFSH Past Medical History Attestation statement: The following information was validated with the patient. Medical History Arthritis Asthma GERD without esophagitis Left lateral epicondylitis Bilateral acromioclavicular joint arthritis Lumbar degenerative disc disease Degenerative disc disease, cervical Obesity (BMI 30-39.9) Surgical History History of laparoscopic cholecystectomy (07/21/23) History of colonoscopy History of tubal ligation History of section Family History Family History Father No problems noted. Mother Breast cancer Uterine cancer Maternal Aunt Breast cancer Maternal Grandmother Breast cancer Social History Social History Housing: Apartment Alcohol intake: never Comment: counts correct Patient Tobacco Use Status: Never used Tobacco Tobacco use type: Cigarette e-Cigarette/Vaping Use: Never Used Second Hand Smoke Exposure: No Advance Directives: No Advance Directives Information Provided: Yes service: No Current occupational status: unemployed Sexual orientation: Straight/Heterosexual Gender identity: Female Cognitive needs: No Hearing needs: No Vision needs: Yes Physical Exam Vital Signs: Vital Signs: Last Vital Signs Temp 97.7 F 09/18/24 22:20 Pulse 73 09/18/24 22:20 Resp 18 09/18/24 22:20 BP 157/76 H 09/18/24 22:20 Pulse Ox 99 09/18/24 22:20 O2 Del Method Room Air 09/18/24 22:20 BMI result Body Mass Index 32.9 Const: Other: Alert Orientation/consciousness: patient oriented x3 Resp: Effort & Inspection: normal respiratory effort Cardio: Other: Normal peripheral perfusion Skin: Other: Warm dry no rash Neuro: General: patient oriented x3, gait normal, no focal motor deficits and CN's II-XI intact bilaterally Extrem: Other: Left 3rd digit, held in flexion at the DIP, she can not extend Psych: Other: Cooperative Medical Decision Making Medical Decision Making MDM Narrative: 58-year-old female presents with left 3rd digit pain for 2 weeks. Patient states she was playing volleyball when she jammed 1 of her fingers. The pain has worsened. She has yet to be assessed medically. No chronic issues that are relevant History: Per patient I have considered the following differential diagnoses: Fracture, dislocation, contusion, sprain Plan: X-ray ordered from triage, she has an avulsion fracture of the distal 3rd phalanx. Given duration of symptoms, a splint would be useless. I am going to send her with a contact for our hand surgeon. We will be sending with pain medication. I have independently reviewed the following tests: X-ray left hand:IMPRESSION: Avulsion fracture at the dorsal base of the 3rd distal phalanx. Associated soft tissue swelling. Discharge Plan Discharge Clinical Impression: Finger fracture, left Patient Disposition: Home, Self-Care Instructions: Finger Fracture (ED) Additional Instructions: You fractured the tip of the finger. Take the tylenol as needed for pain. I am providing you with a contact for the hand surgeon. Call tomorrow to schedule an appointment. Prescriptions: New acetaminophen [Acetaminophen Extra Strength] 500 mg tablet 1,000 mg PO Q8H PRN (Reason: pain) Qty: 24 0RF No Action bupropion HCl 150 mg tablet extended release 24 hr 150 mg PO QAM 90 Days Qty: 90 0RF albuterol sulfate [Ventolin HFA] 90 mcg/actuation HFA aerosol inhaler 2 puff inhalation Q6H PRN (Reason: shortness of breath or wheezing) 30 Days Qty: 8 1RF cetirizine [All Day Allergy (cetirizine)] 10 mg tablet 10 mg PO DAILY PRN (Reason: allergy symptoms) 30 Days Qty: 30 1RF pregabalin 25 mg capsule 25 mg PO BEDTIME 30 Days Qty: 30 0RF zolpidem 5 mg tablet 5 mg PO BEDTIME PRN (Reason: insomnia) 30 Days Qty: 30 0RF Rx Instructions: may repeat once if no response in 30-60 minutes acetaminophen 500 mg tablet 500 mg PO Q6H PRN (Reason: pain) omeprazole 20 mg capsule,delayed release(DR/EC) 20 mg PO DAILY 90 Days Qty: 90 0RF lidocaine 5 % adhesive patch,medicated 1 patch topical DAILY 30 Days Qty: 30 0RF Rx Instructions: leave on most painful area for up to 12 hrs erythromycin 5 mg/gram (0.5 %) ointment 1 appl ophthalmic (eye) DAILY 7 Days Qty: 3.5 0RF Referrals: Cristina Low MD [Physician, Hand Surgery] Referral Note: Avulsion fracture at the dorsal base of the 3rd distal phalanx, is an old injury, injured 2 weeks ago Print Language: Citizen Of [place]
== END 2024-09-19 04:15 | disposition home or self-care (01) ==
PROVIDERS: Emergency Provider Emergency Medicine; PCP Internal Medicine
DX: S62.603A Fracture of unspecified phalanx of left middle finger, initial encounter for closed fracture (principal); M79.642 Pain in left hand; X50.3XXA Overexertion from repetitive movements, initial encounter; X50.1XXA Overexertion from prolonged static or awkward postures, initial encounter; Y93.9 Activity, unspecified; Y92.318 Other athletic court as the place of occurrence of the external cause; Y99.8 Other external cause status; Z79.899 Other long term (current) drug therapy
CPT/HCPCS: 73130; 99281; 99284

== ENCOUNTER → 2024-09-18 22:37 | Outpatient (BNV) | payer OTHER, SELFPAY | PROVIDERS: Visit Provider Radiology Diagnostic Radiology | DX: S62.632A Displaced fracture of distal phalanx of right middle finger, initial encounter for closed fracture (principal) | CPT/HCPCS: 73130 ==

== ENCOUNTER → 2024-10-02 10:11 | Outpatient (BNV) | payer OTHER, SELFPAY | PROVIDERS: PCP Internal Medicine; Visit Provider Radiology Diagnostic Radiology | DX: K76.89 Other specified diseases of liver (principal) | CPT/HCPCS: 74183 ==

== ENCOUNTER 2024-10-02 10:14 | Outpatient (REF) | payer OTHER, SELFPAY ==
--- NOTE | ~2024-10-02 | MR_ITS ---
EXAMINATION: MR ABDOMEN WITHOUT AND WITH CONTRAST CLINICAL INFORMATION: K76.89 Abdominal pain. Nausea. Status post cholecystectomy. COMPARISON: Correlated to CT dated June 23, 2018. TECHNIQUE: MR abdomen was performed without and with use of 8.5 mL intravenous Gadavist gadolinium contrast. Postcontrast images are performed in multiphase dynamic sequences. Imaging was performed in 3 planes. No reported immediate complications. FINDINGS: LUNG BASES: No enhancing lesion. LIVER, GALLBLADDER, AND BILIARY TREE: Liver measures 18 cm. There is a 23 x 15 mm thin septated nonenhancing fluid signal characteristic lesion without restricted diffusion in the inferior right hepatic lobe. There is a 22 mm nonenhancing or restricted diffusion fluid signal characteristic in the posterior inferior right hepatic lobe. There are at least 2, less than 4 mm nonenhancing fluid signal characteristic lesions in the anterior right hepatic lobe too small to be fully characterized. Main portal veins, hepatic veins and intrahepatic portion of the IVC demonstrated normal flow void signal without intraluminal filling defects. No intrahepatic biliary ductal dilatation. Status post cholecystectomy. Common bile duct measures 3 mm. PANCREAS: No focal mass. Main pancreatic duct measures 2 mm. No peripancreatic fluid collection. SPLEEN: 9 cm. No focal mass. ADRENAL GLANDS: No nodular lesion. KIDNEYS AND URETERS: Normal enhancement pattern throughout the renal parenchyma. No hydronephrosis. No focal mass. GASTROINTESTINAL TRACT: No intestinal obstruction pattern. Scattered diverticula throughout the large intestine. Small hiatal hernia. ABDOMINAL WALL: Fat-containing umbilical and periumbilical hernias. No ascites. LYMPH NODES: No lymphadenopathy. VASCULAR: No aneurysm or dissection, abdominal aorta. OSSEOUS STRUCTURES: Multilevel thoracolumbar spondylosis., Pronounced at T11-12 and to a lesser extent T11-12 resulting in central spinal canal stenosis. There is spondylosis at L4-5 and L5-S1 resulting in central spinal canal and bilateral neuroforamina stenosis. MR/MR abdomen wo/w con IMPRESSION: 23 x 15 mm seen septated enhancing cyst, right hepatic lobe. Simple cysts, hepatic. Hepatomegaly, mild. Fat-containing umbilical and periumbilical hernias. Spondylosis, T10-11, T11-12, L4-5 and L5-S1. Diverticular disease, colonic. Electronically signed by: J Carlos Hernandez MD 10/02/2024 12:00 PM EDT
--- OUTSIDE RECORDS SUMMARY | 2024-10-02 11:17 | XMS_ITS | Clinical Summary ---
Author Organization [facility] Address [address] [place] [address] Care Team Providers Care Security Intelligence Analyst Name Role Phone Jerica Liz MD Primary [...] age to complete this topic Care Teams Security Intelligence Analyst Relationship Specialty Start Date End Date Jerica Liz MD PCP - General Internal Medicine 08/12/21
--- OUTSIDE RECORDS SUMMARY | 2024-10-02 11:17 | XMS_ITS | Clinical Summary ---
Author Organization 175 [facility] Address [address] [place] [address] Phone Care Team Providers Care Operator Assistant I Cementing Name Role Phone Kimmie Wisdom MD Primary Care Provider [phone] Allergies Active Allergy Reactions Criticality Noted Date [...] micheline r depressive disorder without prior episode ([facility] V24) 04/19/2023 Mixed hyperlipidemia 12/14/2022 Controlled type 2 diabetes m ellitus without complication, without long-term current use of insulin ([facility] V24, [facility] V28) 12/14/2022 Gastroesophageal reflux disease 11/23/2022 Immunizations Name [...] Years (1 of 2 - PCV) 1984 Zoster Vaccines (1 of 2) 11/10/2015 COVID-19 Vaccine (2023-2 5 season) 2023 Diabetes: Annual GFR (Glomerular Filtration Rate) 11/24/2023 11/23/2022, 11/23/2022 Diabetes: Annual Retina Eye Exam 12/23/2023 12/22/2022 Depression Screening 03/14/2024 Colorectal Cancer Screening: Colonoscopy 04/24/2024 Social Influencers of Health Screening 04/24/2024 Diabetes: Annual Urine Albumin-Creatinine Ratio (uACR) 06/01/2024 Diabetes: Blood Sugar Contro l Test (HGBA1C) 06/01/2024 04/29/2023, 04/29/2023, 11/23/2022 Influenza Vaccine (#1) 2024 Breast Cancer Screening 01/04/2025 01/04/2023 Cervical [...] mg/dL Blood Venous blood specimen / Unknown [facility] Provider LAB BLOOD ORDERABLES Annabella l Result * Cervical Cancer Screening: HPV (01/20/2023) Cervical Cancer Screening: HPV Negative, Abstracted Result [facility] Provider HEALTH MAINTENANCE Final Result * MAMMOGRAM [...] on 01/04/2023 3:45 PM. Workstation Name - [id number] Procedure Note Jaycee Chakraborty MD - 04/19/2023 [...] MD on 01/04/2023 3:45PM. Workstation Name - [id number] Result [facility] Dev Paige DO IMG BI PROCEDURES Final Result * Diabetes Eye Exam (12/22/2022) [facility] Diabetes: Annual Retina Eye Exam Abstracted Historical Provider HEALTH MAINTENANCE Final Result * Annual BMP Blood Test (11/23/2022) [facility] Annual BMP Blood Test Abstracted Historical Provider HEALTH MAINTENANCE Final Result * HIV Screening (11/23/2022) [facility] HIV Screening Abstracted [facility] Provider HEALTH MAINTENANCE Final Result * Hepatitis C Screening (11/23/2022) [facility] Hepatitis C Screening Abstracted us Historical Provider HEALTH MAINTENANCE Final Result from Last 3 Months or Most Recently Relevant to Health Maintenance Insurance [facility] MEDICAID - [place] Care Teams Operator Assistant I Cementing Relationship Specialty Start Date End Date Kimmie Wisdom MD [address] [place] [address] , [address] [facility] Physician Associ D/B/A: [facility] LAUREN Penny PCP - General Internal Medicine 04/23/24
== END 2024-10-02 10:15 | disposition home or self-care (01) ==
LOC: HO.MRI 10:14
PROVIDERS: PCP Internal Medicine; Visit Provider Internal Medicine
DX: K76.89 Other specified diseases of liver (principal)
CPT/HCPCS: 74183; A9585

== ENCOUNTER 2024-10-02 13:09 | Outpatient (AMB) | payer OTHER, SELFPAY ==
--- NOTE | 2024-10-02 13:56 | A.OFFVIS_ITS ---
Vital Signs 10/02/24 13:59 Height 5 ft 3 in Weight 185 lb BMI 32.8 Intake Visit Reasons: FC-Lt distal 3rd phalanx fx DOI: 08/27/24 Intake Note: Salena 58 yr old right hand dominant female presents today for her left distal 3rd phalanx fracture from DOI 08/27/24. Patient states she was playing volleyball when she jammed her left middle finger. States she did not seek m edical attention. 2 weeks later she had increase pain and was seen at an urgent care where xrays were taken and a fracture was confirmed. States they did not do nothing for her. Currently states she continues to have pain and swelling on and off. She is not able to bend at her PIP and DIP. Denies numbness or tingling. Allergies hazelnut (HAZELNUT) Allergy (Severe, Verified 10/02/24 14:12) ANGIOEDEMA, NUMBNESS ibuprofen (From MOTRIN) Allergy (Severe, Verified 10/02/24 14:12) RASH, FACIAL SWELLING, anaphylaxis, face swelling peanut (PEANUT) Allergy (Severe, Verified 10/02/24 14:12) SWELLING tramadol Allergy (Severe, Verified 10/02/24 14:12) rash hydrocodone Allergy (Mild, Verified 10/02/24 14:12) Redness of Skin HPI HPI FC-Lt distal 3rd phalanx fx DOI: 08/27/24: Details: Salena is a 58 year old right hand dominant [place]ruguayan speaking woman who presents for a left middle finger fracture, S/P Volleyball injury, DOI: 08/27/24. She says she jammed her finger while playing Volleyball. She was seen in the ED for finger pain on 09/19/24. She complains of pain & swelling in her middle finger, and says she is not able to bend her finger. She denies any numbness or tingling. FORMERLY [facility] Medical History Arthritis Asthma GERD without esophagitis Left lateral epicondylitis Bilateral acromioclavicular joint arthritis Lumbar degenerative disc disease Degenerative disc disease, cervical Obesity (BMI 30-39.9) Surgical History History of laparoscopic cholecystectomy (07/21/23) History of colonoscopy History of tubal ligation History of section Family History Father No problems noted. 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 Sexual orientation: Straight/Heterosexual Gender identity: Female Cognitive needs: No Hearing needs: No Vision needs: Yes Female Reproductive History Menstrual Age of Menarche: 13 Review of Systems Const All systems reviewed & are unremarkable except as noted in HPI and below Physical Exam Vital Signs: BMI result Body Mass Index 32.8 Const General: cooperative, healthy appearing and no acute distress Orientation/consciousness: patient oriented x3 HEENT Head: Yes normocephalic and Yes atraumatic Eyes EOM: EOMs intact bilaterally Resp Effort & Inspection: normal respiratory effort and able to speak in complete sentences Cardio Jugular venous distension: no JVD Skin General skin exam: turgor normal Rashes: no rashes Neuro General: patient oriented x3 Extrem Other: Evaluation of Left Upper Extremity: The patient is alert, oriented, and in no acute distress Neuro: Median, Ulnar, Radial nerves motor and sensory intact and sensation is normal to the tips of all digits Vascular: Cap refill brisk ROM: She can bring her fingers closed to a fist She has a middle finger mallet deformity of ~45 degrees She is not able to actively extend her middle finger Skin: No lacerations or abrasions. General: No Ecchymosis. No Erythema or evidence of infection. Radiographs: 3 views of the left hand from 09/19/24 were reviewed by me today in clinic. They show a dorsal base avulsion fracture of the middle finger distal phalanx with satisfactory fracture alignment & good interval bony healing. She has some arthritic changes to the dorsal base of the index finger. Psych Appearance: grossly normal Affect: normal affect Attitude: cooperative Office Procedures AMB Fracture Care Details: Fracture care distal phalanx [id number] Fracture Billing Code: Fracture Billing Code Assessment & Plan Assessment & Plan (1) Mallet deformity of left middle finger: Code(s): M20.012 - Mallet finger of left finger(s) Category: Medical Plan Assessment & Plan: 1. Left middle finger mallet deformity ~45 degrees 2. Left middle finger distal phalanx dorsal base avulsion fracture S/P Volleyball accident, DOI: ~08/27/24 I educated her about this condition I discussed operative and non-operative treatment options No operative intervention warranted at this time I recommend splinting, and she is in agreement I ordered OT hand therapy to have a custom finger splint made, which will hold t he middle finger in extension. She is to wear her splint 24/7 for 6 weeks, before transitioning to 8 hour periods of splinting for the following 6 weeks. She will follow up in 6 weeks to see how she is doing with her splinting. Scribed for Cristina Low MD by Cristi Chang, medical laboratory specialist, on 10/02/24 at 2:15 PM, EST. Coding Level of Care Code New Pt Level 3 (71265) Diagnoses Mallet deformity of left middle finger M20.012 CPT Codes Fracture Care - Fracture Billing Code: Fracture Billing Code ([id number])
[2024-10-02 13:59] VITALS: BMI 32.8
== END 2024-10-02 14:32 | disposition home or self-care (01) ==
LOC: HO.HOS 13:10
PROVIDERS: PCP Internal Medicine; Visit Provider Orthopaedic Surgery
DX: M20.012 Mallet finger of left finger(s) (principal); S62.633A Displaced fracture of distal phalanx of left middle finger, initial encounter for closed fracture
CPT/HCPCS: 26750; 99203

== ENCOUNTER 2024-10-10 09:54 | Outpatient (AMB) | payer OTHER, SELFPAY ==
--- NOTE | 2024-10-10 09:58 | A.OFFVIS_ITS ---
Vital Signs 10/10/24 10:01 Height 5 ft 3 in Weight 185 lb BMI 32.8 Intake Visit Reasons: O/V Left middle finger mallet deformity Intake Note: Salena 58 yr old right hand dominant female presents today for a check up visit of her left distal 3rd phalanx fracture from DOI 08/27/24. Patient states she was playing volleyball when she jammed her left middle finger. She was instructed to wear a mallet finger splint however states she has been using the splint as directed but has form blister and feels very itchy. States she has no pain, just a little throbbing and achenes. Reports she has not bend her DIP as instructed. Allergies hazelnut (HAZELNUT) Allergy (Severe, Verified 10/10/24 10:01) ANGIOEDEMA, NUMBNESS ibuprofen (From MOTRIN) Allergy (Severe, Verified 10/10/24 10:01) RASH, FACIAL SWELLING, anaphylaxis, face swelling peanut (PEANUT) Allergy (Severe, Verified 10/10/24 10:01) SWELLING tramadol Allergy (Severe, Verified 10/10/24 10:01) rash hydrocodone Allergy (Mild, Verified 10/10/24 10:01) Redness of Skin HPI HPI O/V Left middle finger mallet deformity: Details: Salena is a 58 year old right hand dominant Georgian speaking woman who returns for her left middle finger mallet deformity, S/P Volleyball injury, DOI: 08/27/24. She says she jammed her finger while playing Volleyball. She was seen in the ED for finger pain on 09/19/24. She says she has been wearing her current finger splint as instructed, but she feels this is chafing and giving her blisters. She says she has been wearing her splint and has not been bending at the DIP joint. She denies any pain, but says she has an occasional throbbing achiness. She denies any numbness or tingling. ON LICENSE OF [facility] Medical History Arthritis Asthma GERD without esophagitis Left lateral epicondylitis Bilateral acromioclavicular joint arthritis Lumbar degenerative disc disease Degenerative disc disease, cervical Obesity (BMI 30-39.9) Surgical History History of laparoscopic cholecystectomy (07/21/23) History of colonoscopy History of tubal ligation History of section Family History Father No problems noted. 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 Skin of the dorsum of the DIP joint appears macerated and with some mild erythema. No blisters are seen. Radiographs: 3 views of the left hand from 09/19/24 were reviewed by me today in clinic. They show a dorsal base avulsion fracture of the middle finger distal phalanx with satisfactory fracture alignment & good interval bony healing. She has some arthritic changes to the dorsal base of the index finger. Assessment & Plan Assessment & Plan (1) Mallet deformity of left middle finger: Code(s): M20.012 - Mallet finger of left finger(s) Category: Medical Plan Assessment & Plan: 1. Left middle finger mallet deformity ~45 degrees 2. Left middle finger distal phalanx dorsal base avulsion fracture S/P Volleyball accident, DOI: ~08/27/24 I educated her about this condition I discussed operative and non-operative treatment options No operative intervention warranted at this time I recommend she continue with splinting, and she is in agreement I ordered OT hand therapy to have a custom finger splint made, which will hold the middle finger in extension. She is to wear her splint / for 6 weeks, before transitioning to 8 hour periods of splinting for the following 6 weeks. She will work on MCP & PIP joint ROM while wearing her splint She will follow up in 5 weeks to see how she is doing with her splinting. Scribed for Cristina Low MD by Cristi Chang, medical lab scientist, on 10/10/24 at 10:20 AM, EST. Orders: Orders OT Evaluation and Treatment Today M20.012 - Mallet finger of left finger(s) Coding Level of Care Code Global (87262) Diagnoses Mallet deformity of left middle finger M20.012
[2024-10-10 10:01] VITALS: BMI 32.8
--- OUTSIDE RECORDS SUMMARY | 2024-10-10 10:40 | XMS_ITS | Clinical Summary ---
Author Organization [address] [facility] Address [address] [place] [address] Phone Care Team Providers Care Cage Unloader Name Role Phone Kimmie Wisdom MD Primary Care Provider [phone] Allergies Active Allergy Reactions Criticality Noted Date [...] micheline r depressive disorder without prior episode ([facility] V24) 04/19/2023 Mixed hyperlipidemia 12/14/2022 Controlled type 2 diabetes m ellitus without complication, without long-term current use of insulin ([facility] V24, [facility] V28) 12/14/2022 Gastroesophageal reflux disease 11/23/2022 Immunizations [...] mg/dL Blood Venous blood specimen / Unknown [facility] Provider LAB BLOOD ORDERABLES Annabella l Result * Cervical Cancer Screening: HPV (01/20/2023) Cervical Cancer Screening: HPV Negative, Abstracted Result [facility] Provider HEALTH MAINTENANCE Final Result * [...] on 01/04/2023 3:45 PM. Workstation Name - [id number] Procedure Note Jaycee Chakraborty MD - 04/19/2023 [...] MD on 01/04/2023 3:45PM. Workstation Name - [id number] Result [facility] Dev Paige DO IMG BI PROCEDURES Final Result * Diabetes Eye Exam (12/22/2022) [facility] Diabetes: Annual Retina Eye Exam Abstracted Historical Provider HEALTH MAINTENANCE Final Result * Annual BMP Blood Test (11/23/2022) [facility] Annual BMP Blood Test Abstracted Historical Provider HEALTH MAINTENANCE Final Result * HIV Screening (11/23/2022) [facility] HIV Screening Abstracted [facility] Provider HEALTH MAINTENANCE Final Result * Hepatitis C Screening (11/23/2022) [facility] Hepatitis C Screening Abstracted us Historical Provider HEALTH MAINTENANCE Final Result from Last 3 Months or Most Recently Relevant to Health Maintenance Insurance [facility] [place]ICA[place] Care Teams Cage Unloader Relationship Specialty Start Date End Date Kimmie Wisdom MD [address] [place] [address] , [address] [facility] Physician Associ D/B/A: [facility] LAUREN Penny PCP - General Internal Medicine 04/23/24
--- OUTSIDE RECORDS SUMMARY | 2024-10-10 10:40 | XMS_ITS | Clinical Summary ---
Author Organization [employer] [facility] Address [address] [place] [address] Care Team Providers Care Cobbler Mckay Name Role Phone Jerica Liz MD Primary [...] age to complete this topic Care Teams Cobbler Mckay Relationship Specialty Start Date End Date Jerica Liz MD PCP - General Internal Medicine 08/12/21
== END 2024-10-10 10:37 | disposition home or self-care (01) ==
LOC: HO.HOS 09:55
PROVIDERS: PCP Internal Medicine; Visit Provider Orthopaedic Surgery
DX: M20.012 Mallet finger of left finger(s) (principal)
CPT/HCPCS: 99024

== ENCOUNTER → 2024-10-10 09:54 | Outpatient (BNVA) | payer OTHER, SELFPAY | PROVIDERS: PCP Internal Medicine; Visit Provider Orthopaedic Surgery | DX: M20.012 Mallet finger of left finger(s) (principal) | CPT/HCPCS: 99212 ==

== ENCOUNTER 2024-11-05 09:53 | Outpatient (AMB) | payer OTHER, SELFPAY ==
--- NOTE | 2024-11-05 09:55 | MHC.PC.OV ---
Vital Signs 11/05/24 09:56 Height 5 ft 3 in Weight 183 lb 6 oz BMI 32.5 BP 122/60 Pulse 72 Pulse Source Pulse Oximeter Pulse Oximetry (%) 97 Intake Visit Reasons: Annual Exam Ethnology Teacher Required: No Accompanied by: Self / Same As Patient Allergies hazelnut (HAZELNUT) Allergy (Severe, Verified 11/05/24 10:19) ANGIOEDEMA, NUMBNESS ibuprofen (From MOTRIN) Allergy (Severe, Verified 11/05/24 10:19) RASH, FACIAL SWELLING, anaphylaxis, face swelling peanut (PEANUT) Allergy (Severe, Verified 11/05/24 10:19) SWELLING tramadol Allergy (Severe, Verified 11/05/24 10:19) rash hydrocodone Allergy (Mild, Verified 11/05/24 10:19) Redness of Skin Medication List - Last Reconciled 11/05/24 by Kimmie Wisdom MD acetaminophen (Acetaminophen Extra Strength) 1,000 mg (2 x 500 mg) PO Q8H PRN acetaminophen 500 mg PO Q6H PRN bupropion HCl XL 150 mg PO QAM 90 days cetirizine (All Day Allergy (cetirizine)) 10 mg PO DAILY PRN 30 days erythromycin 1 appl ophthalmic (eye) DAILY 7 days lidocaine 5% 1 patch topical DAILY 30 days omeprazole 20 mg PO DAILY 90 days pregabalin 25 mg PO BEDTIME 30 days Ventolin HFA 90 mcg/actuation (albuterol sulfate) 2 puffs inhalation Q6H PRN 30 days NS zolpidem 5 mg PO BEDTIME PRN 30 days Tobacco use date assessed: 11/05/24 Dental Screening Dental Screen Date: 05/10/24 Did you have a dental visit in the last 12 months?: Yes Did you have a dental problem in the last 6 months where you did not have access to dental care?: No Was dental information given to patient?: Patient has dentist HPI HPI Comments History of Present Illness Details The patient is a 58-year-old female presenting for an annual physical examination. She has a history of depression, currently managed with bupropion 150 mg, and reports a PHQ-9 score of 10, indicating mild depression. She is also taking cetirizine for allergies and pregabalin 25 mg at night for pain management. The patient has a significant family history of cancer, with her mother having had breast and uterine cancer. She denies any history of smoking and reports minimal alcohol consumption, primarily wine, approximately once a month. Her last mammogram was conducted in November, and the last Pap smear was in 2019, with a recent follow-up in February of this year. Recent laboratory tests in April indicated elevated cholesterol levels, prompting a repeat test. [facility] Medical History (Updated 11/05/24 @ 10:53 by Kimmie Wisdom MD) Arthritis Asthma GERD without esophagitis Left lateral epicondylitis Bilateral acromioclavicular joint arthritis Lumbar degenerative disc disease Degenerative disc disease, cervical Obesity (BMI 30-39.9) Surgical History History of laparoscopic cholecystectomy (07/21/23) History of colonoscopy History of tubal ligation History of section Family History Father No problems noted. 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 1. Little interest or pleasure in doing things: several days 2. Feeling down, depressed, or hopeless: nearly every day 3. Trouble falling or staying asleep, or sleeping too much: nearly every day 4. Feeling tired or having little energy: nearly every day 5. Poor appetite or overeating: not at all 6. Feeling bad about yourself - or that you are a failure or have let yourself or your family down: not at all 7. Trouble concentrating on things, such as reading the newspaper or watching television: not at all 8. Moving or speaking so slowly that other people could have noticed. Or the opposite - being so fidgety or restless that you have been moving around a lot more than usual: not at all 9. Thoughts that you would be better off or of hurting yourself in some way: not at all Total score: 10 Depression Screening Interpretation: Positive Depression Screening Follow-up: Existing condition, In treatment and Follow-up Visit Requested Depression Screening Done: Yes 53480 - PHQ-9 Billing: Yes Source: Developed by Drs. Bin Carpenter, Cari Burk, Elieser Yanes and colleagues, with an educational chanell from [employer]. Thrive Questionnaire Date Thrive assessed: 05/10/24 I am a: Patient What is your living situation today?: I have a steady place to live Within the past 12 months, did the food you bought not last and you didn't have the money to get more?: Never true Within the past 12 months, did you worry whether your food would run out before you got money to buy more?: Never true Do you have trouble paying for medicines?: No Do you have trouble getting transportation to medical appointments?: No Do you have trouble paying your heating and electricity bill?: No Do you have trouble taking care of your child, family member or friend?: No Do you have trouble with day-to-day activities such as bathing, preparing meals, shopping, managing finances, etc.?: No Are you currently unemployed and looking for a job?: No Are you interested in more education?: No Please select the resources that you would like help with: None Currently or been in a relationship where the following occur: No concerns reported THRIVE Score: 0 AUDIT C Alcohol Use Questionnaire (AUDIT-C) 1. How often do you have a drink containing alcohol?: Never Total Score: 0 Score Reviewed/Action Taken: No FAIZA-7 AMB Questionnaire FAIZA-7 Date FAIZA - 7 assessed: 11/05/24 Feeling nervous, anxious, or on edge: 0 = Not at all Not being able to stop or control worryin = Not at all Worrying too much about different things: 0 = Not at all Trouble relaxin = Not at all Being so restless that it is hard to sit still: 0 = Not at all Becoming easily annoyed or irritable: 0 = Not at all Feeling afraid as if something awful might happen: 0 = Not at all Total FAIZA-7 score (0-4 normal; 5-9 mild; 10-14 moderate; 15-21 severe): 0 Source: Developed by Drs. Bin Carpenter, Cari Burk, Elieser Yanes and colleagues, with an educational chanell from [employer]. FAIZA-7 Assessment Billing FAIZA-7 Assessment Tool: FAIZA-7 Assessment 44253 Review of Systems Const All systems reviewed & are unremarkable except as noted in HPI and below Card Denies chest pain at rest, Denies chest pain with activity, Denies edema, Denies irregular heart rhythm, Denies claudication, Denies dyspnea, Denies dyspnea on exertion, Denies orthopnea, Denies paroxysmal nocturnal dyspnea and Denies slow heart rate Resp Denies cough, Denies dyspnea and Denies dyspnea on exertion GI Denies abdominal pain, Denies change in bowel habits, Denies excessive flatus, Denies nausea and Denies vomiting Physical exam (Primary Care) Vital Signs: Last Vital Signs Pulse 72 11/05/24 09:56 BP 122/60 11/05/24 09:56 Pulse Ox 97 11/05/24 09:56 BMI result Body Mass Index 32.5 Tobacco/Smoking Status: Tobacco use Status Tobacco use date assessed 11/05/24 11/05/24 09:59 Patient Tobacco Use Status Never used Tobacco 11/05/24 10:25 Tobacco use type Cigarette 11/05/24 10:25 e-Cigarette/Vaping Use Never Used 11/05/24 10:25 PHQ-9: PHQ-9 Score PHQ-9: Total score 10 11/05/24 10:26 Depression Screening Interpretation: Positive Depression Screening Follow-up: Existing condition, In treatment and Follow-up Visit Requested Thrive Assessment: Date of Thrive Assessment Date Thrive assessed 05/10/24 11/05/24 09:59 Currently or been in a relationship where the following occur: No concerns reported HENMT Head: Yes normal to inspection, Yes normocephalic and Yes atraumatic Ears: external ears normal Eyes General: appearance normal, both eyes and all related structures Eyelids: Yes eyelids normal Conjunctivae: conjunctivae normal Neck Neck: Yes normal visual inspection and Yes supple Resp Effort & Inspection: normal respiratory effort Auscultation: clear to auscultation bilaterally Cardio Jugular venous distension: no JVD Rate: regular rate Rhythm: regular rhythm Heart sounds: S1 normal heart sound present and S2 normal heart sound present GI Inspection: Yes normal to inspection Palpation (GI): Soft to palpation and nontender Auscultation: normal bowel sounds Skin General skin exam: no rashes or lesions noted Neuro General: no focal motor deficits Extrem General: Yes full ROM Psych Appearance: grossly normal Coding Level of Care Code Est Pt Level 3 (68307) Est Pt Prev Care 40-64y(46820) Diagnoses Physical exam Z00.00 Mild major depression F32.0 Hair loss L65.9 Rash R21 Additional Codes FAIZA-7 Assessment Billing - FAIZA-7 Assessment Tool: FAIZA-7 Assessment 25002 ([id number]) PHQ-9 - 12603 - PHQ-9 Billing: Yes ([id number]) Time Spent (min) 32 Assessment & Plan Assessment & Plan (1) Physical exam: Code(s): Z00.00 - Encounter for general adult medical examination without abnormal findings Category: Medical (2) Mild major depression: Code(s): F32.0 - Major depressive disorder, single episode, mild Category: Medical (3) Hair loss: Code(s): L65.9 - Nonscarring hair loss, unspecified Category: Medical (4) Rash: Code(s): R21 - Rash and other nonspecific skin eruption Category: Medical Plan The plan includes repeating the cholesterol test due to previous elevation, and ensuring follow-up on preventative screenings such as mammography and Pap smear. The patient's depression management will continue with bupropion, and her allergy management with cetirizine. Pregabalin will be continued for pain management. Patient was informed and verbally consented to the use of an ambient scribe for clinic note documentation during this visit. Orders: Orders Thyroid Stimulating Hormone Today L65.9 - Nonscarring hair loss, unspecified Lipid Panel Today E78.5 - Hyperlipidemia, unspecified Comprehensive [place]. Panel Fast Today R73.02 - Impaired glucose tolerance (oral)
[2024-11-05 09:56] VITALS: BP 122/60; PULSE 72; O2SAT 97; BMI 32.5
--- OUTSIDE RECORDS SUMMARY | 2024-11-05 10:51 | XMS_ITS | Clinical Summary ---
Author Organization [address] [facility] Address [address] [place] [address] Phone Care Team Providers Care Database Analyst Name Role Phone Kimmie Wisdom MD Primary Care Provider [phone] Allergies Active Allergy Reactions Criticality Noted Date [...] micheline r depressive disorder without prior episode ([facility] V24) 04/19/2023 Mixed hyperlipidemia 12/14/2022 Controlled type 2 diabetes m ellitus without complication, without long-term current use of insulin ([facility] V24, [facility] V28) 12/14/2022 Gastroesophageal reflux disease 11/23/2022 Immunizations [...] mg/dL Blood Venous blood specimen / Unknown [facility] Provider LAB BLOOD ORDERABLES Annabella l Result * Cervical Cancer Screening: HPV (01/20/2023) Cervical Cancer Screening: HPV Negative, Abstracted Result [facility] Provider HEALTH MAINTENANCE Final Result [...] on 01/04/2023 3:45 PM. Workstation Name - [id number] Procedure Note Jaycee Chakraborty MD - 04/19/2023 [...] MD on 01/04/2023 3:45PM. Workstation Name - [id number] Result [facility] Dev Paige DO IMG BI PROCEDURES Final Result * Diabetes Eye Exam (12/22/2022) [facility] Diabetes: Annual Retina Eye Exam Abstracted Historical Provider HEALTH MAINTENANCE Final Result * Annual BMP Blood Test (11/23/2022) [facility] Annual BMP Blood Test Abstracted Historical Provider HEALTH MAINTENANCE Final Result * HIV Screening (11/23/2022) [facility] HIV Screening Abstracted [facility] Provider HEALTH MAINTENANCE Final Result * Hepatitis C Screening (11/23/2022) [facility] Hepatitis C Screening Abstracted us Historical Provider HEALTH MAINTENANCE Final Result from Last 3 Months or Most Recently Relevant to Health Maintenance Insurance [facility] MEDICAID - [place] Care Teams Database Analyst Relationship Specialty Start Date End Date Kimmie Wisdom MD [address] [place] [address] , [address] [facility] Physician Associ D/B/A: [facility] LAUREN Penny PCP - General Internal Medicine 04/23/24
--- OUTSIDE RECORDS SUMMARY | 2024-11-05 10:51 | XMS_ITS | Clinical Summary ---
Author Organization [employer] [facility] Address [address] [place] [address] Care Team Providers Care Options Trader Name Role Phone Jerica Liz MD Primary [...] age to complete this topic Care Teams Options Trader Relationship Specialty Start Date End Date Jerica Liz MD PCP - General Internal Medicine 08/12/21
== END 2024-11-05 10:32 | disposition home or self-care (01) ==
LOC: HO.HMCH 09:54
PROVIDERS: PCP Internal Medicine; Visit Provider Internal Medicine
DX: Z00.00 Encounter for general adult medical examination without abnormal findings (principal); F32.0 Major depressive disorder, single episode, mild; L65.9 Nonscarring hair loss, unspecified; R21 Rash and other nonspecific skin eruption

== ENCOUNTER → 2024-11-05 09:53 | Outpatient (BNVA) | payer OTHER, SELFPAY | PROVIDERS: PCP Internal Medicine; Visit Provider Internal Medicine | DX: Z00.00 Encounter for general adult medical examination without abnormal findings (principal); F32.A Depression, unspecified; F32.0 Major depressive disorder, single episode, mild; L65.9 Nonscarring hair loss, unspecified; R21 Rash and other nonspecific skin eruption; E78.5 Hyperlipidemia, unspecified; R73.02 Impaired glucose tolerance (oral) | CPT/HCPCS: 96127; 99212; 99396 ==

== ENCOUNTER 2024-11-13 13:23 | Outpatient (AMB) | payer OTHER, SELFPAY ==
[2024-11-13 13:36] VITALS: BMI 32.4
--- NOTE | 2024-11-13 13:36 | A.OFFVIS_ITS ---
Vital Signs 11/13/24 13:36 Height 5 ft 3 in Weight 183 lb BMI 32.4 Intake Visit Reasons: OV-Lt distal 3rd phalanx fx DOI: 08/27/24-w/xrays Intake Note: Salena is a 58 year old right hand dominant Lithuanian speaking woman who presents today for a follow up for her mallet deformity of left middle finger status post volleyball accident, DOI: ~08/27/24. At her last visit on 10/10/[address] Low an occupational therapy order was placed to have a custom finger splint made, which will hold the middle finger in extension. She was advised to wear her splint 24/7 for 6 weeks, before transitioning to 8 hour periods of splinting for the next following 6 weeks after. In her splint she was instructed to work on MCP & PIP joint ROM. Currently states she has continued to wear her finger splint with big improvement. States she no longer has the lump on her PIP and her finger looks straight. Horse Rider Name: DUANE ayala/mariposa Allergies hazelnut (HAZELNUT) Allergy (Severe, Verified 11/05/24 10:19) ANGIOEDEMA, NUMBNESS ibuprofen (From MOTRIN) Allergy (Severe, Verified 11/05/24 10:19) RASH, FACIAL SWELLING, anaphylaxis, face swelling peanut (PEANUT) Allergy (Severe, Verified 11/05/24 10:19) SWELLING tramadol Allergy (Severe, Verified 11/05/24 10:19) rash hydrocodone Allergy (Mild, Verified 11/05/24 10:19) Redness of Skin HPI HPI OV-Lt distal 3rd phalanx fx DOI: 08/27/24-w/xrays: Details: Salena is a 58 year old right hand dominant Lithuanian speaking woman who returns for her left middle finger mallet deformity, S/P Volleyball injury, DOI: 08/27/24. She says she jammed her finger while playing Volleyball. She says she has been wearing her current finger splint as instructed, and she has noticed a good improvement in her finger. She says her finger is looking straight and the PIP joint mass has improved. She did not see [facility] OT hand therapy to have a custom splint made. She denies any pain, but says she has an occasional throbbing achiness. She denies any numbness or tingling. [facility] Medical History Arthritis Asthma GERD without esophagitis Left lateral epicondylitis Bilateral acromioclavicular joint arthritis Lumbar degenerative disc disease Degenerative disc disease, cervical Obesity (BMI 30-39.9) Surgical History History of laparoscopic cholecystectomy (07/21/23) History of colonoscopy History of tubal ligation History of section Family History Father No problems noted. 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 Sexual orientation: Straight/Heterosexual Gender identity: Female Cognitive needs: No Hearing needs: No Vision needs: Yes Female Reproductive History Menstrual Age of Menarche: 13 Physical Exam Vital Signs: BMI result Body Mass Index 32.4 Extrem Other: Evaluation of Left Upper Extremity: The patient is alert, oriented, and in no acute distress Cap refill brisk ROM: She has been wearing her Stax splint as instructed She has mild tenderness over the dorsal aspect of the middle finger DIP joint, appears likely secondary to skin irritation Her DIP joint is now held in full extension Skin of the dorsum of the DIP joint appears healed, no erythema or maceration Radiographs: 3 views of the left hand from 09/19/24 were reviewed by me today in clinic. They show a dorsal base avulsion fracture of the middle finger distal phalanx with satisfactory fracture alignment & good interval bony healing. She has some arthritic changes to the dorsal base of the index finger. Assessment & Plan Assessment & Plan (1) Mallet deformity of left middle finger: Code(s): M20.012 - Mallet finger of left finger(s) Category: Medical Plan Assessment & Plan: 1. Left middle finger mallet deformity, corrected Following 6 weeks of 24/7 splinting 2. Left middle finger distal phalanx dorsal base avulsion fracture S/P Volleyball accident, DOI: ~08/27/24 I educated her about this condition I discussed treatment options We will continue to manage this non-operatively, and she is in agreement She was given a new metal straight splint to wear in case she does not want to continue with her Stax splint I recommend she continue with splinting, and she is in agreement. She was not seen by [facility] OT to have a custom finger splint made for her. She has instead been wearing her Stax splint. She is now to wear her splint for 8 hour periods of splinting per day, for the following 6 weeks. She will work on MCP & PIP joint ROM while wearing her splint She will follow up in 6 weeks to see how she is doing with her splinting. She should be able to discontinue splinting altogether at that time. Scribed for Cristina Low MD by Cristi Chang, medical device sales, on 11/13/24 at 1:55 PM, EST. Coding Level of Care Code Est Pt Level 3 (68486) Diagnoses Mallet deformity of left middle finger M20.012
--- OUTSIDE RECORDS SUMMARY | 2024-11-13 14:39 | XMS_ITS | Clinical Summary ---
Author Organization [address] [facility] Address [address] [place] [address] Phone Care Team Providers Care Planning Consultant Name Role Phone Kimmie Wisdom MD Primary Care Provider [phone] Allergies Active Allergy Reactions Criticality Noted Date [...] micheline r depressive disorder without prior episode ([facility] V24) 04/19/2023 Mixed hyperlipidemia 12/14/2022 Controlled type 2 diabetes m ellitus without complication, without long-term current use of insulin ([facility] V24, [facility] V28) 12/14/2022 Gastroesophageal reflux disease 11/23/2022 Immunizations [...] 1984 Zoster Vaccines (1 of 2) 11/10/2015 Diabetes: Annual GFR (Glomerular Filtration Rate) 11/24/2023 11/23/2022, 11/23/2022 Diabetes: Annual Retina Eye Exam 12/23/2023 12/22/2022 Depression Screening 03/14/2024 Colorectal Cancer Screening: Colonoscopy 04/24/2024 Social Influencers of Health Screening 04/24/2024 Diabetes: Annual Urine Albumin-Creatinine Ratio (uACR) 06/01/2024 Diabetes: Blood Sugar Contro l Test (HGBA1C) 06/01/2024 04/29/2023, 04/29/2023, 11/23/2022 COVID-19 Vaccine (1 - 2023-2 5 season) 2024 Influenza Vaccine (#1) 2024 Breast Cancer Screening 01/04/2025 01/04/2023 Cervical Cancer Screening: HPV 01/21/2028 01/20/2023 Cholesterol Screening (Lipid Panel) 04/29/2028 04/29/2023, 04/29/2023, 11/23/2022 DTaP,Tdap,and Td Vaccines (2 - Td or Tdap) 01/18/2032 01/17/2022 RSV Immunization Adult Patients (1 - 1-dose 75+ series) 2040 HIV Screening Completed 11/23/2022 Hepatitis C Screening [...] % Blood Venous blood specimen / Unknown [facility] Provider LAB BLOOD ORDERABLES Annabella l Result * (ABNORMAL) Lipid panel (04/29/2023) Triglycerides 121 <=150 mg/dL Cholesterol 204(A) 0 - 200 mg/dL HDL 48 37 - 92 mg/dL LDL Cholesterol 132(A) 50 - 130 mg/dL Blood Venous blood specimen / Unknown [facility] Provider LAB BLOOD ORDERABLES Annabella l Result * Cervical Cancer Screening: HPV (01/20/2023) Cervical Cancer Screening: HPV Negative, Abstracted [facility] Provider HEALTH MAINTENANCE Final Result * [...] on 01/04/2023 3:45 PM. Workstation Name - [id number] Procedure Note Jaycee Chakraborty MD - 04/19/2023 [...] MD on 01/04/2023 3:45PM. Workstation Name - [id number] Dev Paige DO IMG BI PROCEDURES Final Result * Diabetes Eye Exam (12/22/2022) [facility] Diabetes: Annual Retina Eye Exam Abstracted Historical Provider HEALTH MAINTENANCE Final Result * Annual BMP Blood Test (11/23/2022) Pathologist [facility] Annual BMP Blood Test Abstracted Historical Provider HEALTH MAINTENANCE Final Result * HIV Screening (11/23/2022) [facility] HIV Screening Abstracted Historical Provider HEALTH MAINTENANCE Final Result * Hepatitis C Screening (11/23/2022) Hepatitis C Screening Abstracted us Historical Provider HEALTH MAINTENANCE Final Result from Last 3 Months or Most Recently Relevant to Health Maintenance Insurance [facility] [place] [place]ICA[place] Care Teams Planning Consultant Relationship Specialty Start Date End Date Kimmie Wisdom MD [address] [place] [address] , [address] [facility] Physician Associ D/B/A: [facility] LAUREN Penny PCP - General Internal Medicine 04/23/24
--- OUTSIDE RECORDS SUMMARY | 2024-11-13 14:39 | XMS_ITS | Clinical Summary ---
Author Organization [facility] Address [address] [place] [address] Care Team Providers Care Landmen Name Role Phone Jerica Liz MD Primary [...] age to complete this topic Care Teams Landmen Relationship Specialty Start Date End Date Jerica Liz MD PCP - General Internal Medicine 08/12/21
== END 2024-11-13 14:34 | disposition home or self-care (01) ==
LOC: HO.HOS 13:23
PROVIDERS: PCP Internal Medicine; Visit Provider Orthopaedic Surgery
DX: M20.012 Mallet finger of left finger(s) (principal)
CPT/HCPCS: 99024

== ENCOUNTER → 2024-11-13 13:23 | Outpatient (BNVA) | payer OTHER, SELFPAY | PROVIDERS: PCP Internal Medicine; Visit Provider Orthopaedic Surgery | DX: M20.012 Mallet finger of left finger(s) (principal) | CPT/HCPCS: 99212 ==

== ENCOUNTER 2024-11-21 09:55 | Outpatient (AMB) | payer OTHER, SELFPAY ==
--- NOTE | 2024-11-21 10:07 | MHC.OFFVIS ---
Vital Signs 11/21/24 10:20 Height 5 ft 3 in Weight 182 lb BMI 32.2 BP 108/63 Blood Pressure Location Lt brachial Position Sitting Pulse 72 Pulse Oximetry (%) 98 Oxygen Delivery Method Room Air Intake Visit Reasons: 2 mo f/u Intake Note: Patient follow up for GERD without esophagitis, and MRI results Patient cc: GERD is better. Denies any other GI issues. Educational Interpreter Required: Yes Educational Interpreter Name: [facility] interpeter Accompanied by: Self / Same As Patient Allergies hazelnut (HAZELNUT) Allergy (Severe, Verified 11/21/24 10:07) ANGIOEDEMA, NUMBNESS ibuprofen (From MOTRIN) Allergy (Severe, Verified 11/21/24 10:07) RASH, FACIAL SWELLING, anaphylaxis, face swelling peanut (PEANUT) Allergy (Severe, Verified 11/21/24 10:07) SWELLING tramadol Allergy (Severe, Verified 11/21/24 10:07) rash hydrocodone Allergy (Mild, Verified 11/21/24 10:07) Redness of Skin HPI Comments Details: 58 y.o F with PMH of who is here for abd pain. 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 Reports 2 years of epigastric pain with heartburn to mid chest with nausea. Reports had CCY for similar sx last year. Was doing ok for a few months and then sx recurred. Sx occur 1-2 times a week but each episode lasts almost a day. Was prescribed famotidine 20 BID by PCP which the pt takes PRN. US Abd 06/2024: Liver: The right lobe of the liver measures 14.1 cm in size. The left lobe of the liver measures 8.9 cm in size. The liver demonstrates increased echotexture, consistent with steatosis. There is a 2.9 x 1.6 x 2.2 cm cyst in the right lobe. No intrahepatic biliary ductal dilatation is identified. There is normal hepatopedal flow in the portal vein. UGIS 07/2024: 1. Mild to moderately disordered esophageal peristalsis. Feline contraction pattern observed, suggesting chronic reflux. 2. Gastroesophageal reflux seen episodically to the level of the thoracic inlet. 3. No definite hiatus hernia. 4. No gross abnormality of the stomach, duodenal bulb, duodenum, or proximal small bowel. 5. Cholecystectomy. 11/21/24: Here for follow up. 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 No acute issues. Reflux is much better controlled with PPI. Forgets to take it daily but no breakthrough heartburn reported. In terms of liver cyst, no malignant features reported on MRI. MRI 09/2024: There is a 23 x 15 mm thin septated nonenhancing fluid signal characteristic lesion without restricted diffusion in the inferior right hepatic lobe. There is a 22 mm nonenhancing or restricted diffusion fluid signal characteristic in the posterior inferior right hepatic lobe. There are at least 2, less than 4 mm nonenhancing fluid signal characteristic lesions in the anterior right hepatic lobe too small to be fully characterized. Last colo 06/2018 (DR Serrano) to cecum. Hyperplastic polyp in transverse colon and rectum. [facility] Medical History Arthritis Asthma GERD without esophagitis Left lateral epicondylitis Bilateral acromioclavicular joint arthritis Lumbar degenerative disc disease Degenerative disc disease, cervical Obesity (BMI 30-39.9) Surgical History History of laparoscopic cholecystectomy (07/21/23) History of colonoscopy History of tubal ligation History of section Family History Father No problems noted. 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 Sexual orientation: Straight/Heterosexual Gender identity: Female Cognitive needs: No Hearing needs: No Vision needs: Yes Female Reproductive History Menstrual Age of Menarche: 13 Review of Systems Const All systems reviewed & are unremarkable except as noted in HPI and below Physical Exam Exam Exam: No apparent distress Nonicteric Abdomen soft, nondistended Alert and oriented x3, normal gait Vital Signs: Last Vital Signs Pulse 72 11/21/24 10:20 BP 108/63 11/21/24 10:20 Pulse Ox 98 11/21/24 10:20 Oxygen Delivery Method Room Air 11/21/24 10:20 BMI result Body Mass Index 32.2 Assessment & Plan Assessment & Plan (1) GERD without esophagitis: Code(s): K21.9 - Gastro-esophageal reflux disease without esophagitis Category: Medical (2) Liver cyst: Code(s): K76.89 - Other specified diseases of liver Category: Medical (3) Personal history of colonic polyps: Code(s): Z86.0100 - Personal history of colon polyps, unspecified Category: Medical Plan 1. GERD: Well controlled on PPI. No dysphagia, heartburn or regurgitation reported. 2. Liver cyst: Benign. Will repeat US in 6 months to ensure no rapid increase in size. 3. Personal hx of polyps: Due for repeat colo now since will treat hyperplastic polyp in transverse colon as SSL. Plan: - [facility] to be booked - PEG prep Rxed and instructions reviewed in Ukrainian - handout provided as well. Follow up after colo Orders: Referrals GI Procedure Notification Z86.0100 - Personal history of colon polyps, unspecified Medications: New peg 3350-electrolytes 236-22.74-6.74 -5.86 gram (Golytely) as per split prep instructions, until fecal effluent is clear 240 mL PO Q10M 4,000 mL 0RF colonoscopy Coding Level of Care Code Est Pt Level 4 (75803) Diagnoses GERD without esophagitis K21.9 Liver cyst K76.89 Personal history of colonic polyps Z86.0100
[2024-11-21 10:20] VITALS: BP 108/63; PULSE 72; O2SAT 98; BMI 32.2
== END 2024-11-21 11:37 | disposition home or self-care (01) ==
LOC: HO.HGI 09:55
PROVIDERS: PCP Internal Medicine; Visit Provider Internal Medicine
DX: K21.9 Gastro-esophageal reflux disease without esophagitis (principal); K76.89 Other specified diseases of liver; Z86.0100 Personal history of colon polyps, unspecified
CPT/HCPCS: 99214

== ENCOUNTER → 2024-11-21 09:55 | Outpatient (BNVA) | payer OTHER, SELFPAY | PROVIDERS: PCP Internal Medicine; Visit Provider Internal Medicine | DX: K21.9 Gastro-esophageal reflux disease without esophagitis (principal); K76.89 Other specified diseases of liver; Z86.0100 Personal history of colon polyps, unspecified | CPT/HCPCS: 99212 ==

== ENCOUNTER 2024-12-07 10:41 | Outpatient (REF) | payer OTHER, SELFPAY ==
--- NOTE | ~2024-12-07 | MM_ITS ---
EXAMINATION: MM SCREENING DIGITAL BREAST TOMOSYNTHESIS, BILATERAL CLINICAL INFORMATION: Screening. Asymptomatic. COMPARISON: Mammography: Comparison is made with available priors TECHNIQUE: Digital breast mammography with tomosynthesis is performed in both the craniocaudal and mediolateral oblique views along with computer-aided detection (CAD). FINDINGS: There are scattered areas of fibroglandular density. There are no significant masses, abnormal calcifications, or other abnormalities. MM/MM tomosynthesis screening BI IMPRESSION: No mammographic evidence of malignancy. ASSESSMENT: BI-RADS Category 1: Negative RECOMMENDATION: Routine annual mammography screening. 1 year F/U This examination should not preclude the clinical evaluation of a suspicious palpable abnormality. This patient's information was entered into a reminder system with a target due date for their next mammogram. Electronically signed by: Milana Glaser DO 12/10/2024 05:32 PM EDT
--- OUTSIDE RECORDS SUMMARY | 2024-12-07 12:13 | XMS_ITS | Clinical Summary ---
Author Organization [address] [facility] Address [address] [place] [address] Phone Care Team Providers Care Sifter And Miller Name Role Phone Kimmie Wisdom MD Primary Care Provider [phone] Allergies Active Allergy Reactions Criticality Noted Date [...] micheline r depressive disorder without prior episode ([facility] V24) 04/19/2023 Mixed hyperlipidemia 12/14/2022 Controlled type 2 diabetes m ellitus without complication, without long-term current use of insulin ([facility] V24, [facility] V28) 12/14/2022 Gastroesophageal reflux disease [...] % Blood Venous blood specimen / Unknown [facility] Provider LAB BLOOD ORDERABLES Annabella l Result * (ABNORMAL) Lipid panel (04/29/2023) Triglycerides 121 <=150 mg/dL Cholesterol 204(A) 0 - 200 mg/dL HDL 48 37 - 92 mg/dL LDL Cholesterol 132(A) 50 - 130 mg/dL Blood Venous blood specimen / Unknown [facility] Provider LAB BLOOD ORDERABLES Annabella l Result * Cervical Cancer Screening: HPV (01/20/2023) Cervical Cancer Screening: HPV Negative, Abstracted [facility] Provider HEALTH MAINTENANCE Final Result * [...] on 01/04/2023 3:45 PM. Workstation Name - [id number] Procedure Note Jaycee Chakraborty MD - 04/19/2023 [...] MD on 01/04/2023 3:45PM. Workstation Name - [id number] Dev Paige DO IMG BI PROCEDURES Final Result * Diabetes Eye Exam (12/22/2022) [facility] Diabetes: Annual Retina Eye Exam Abstracted Historical Provider HEALTH MAINTENANCE Final Result * Annual BMP Blood Test (11/23/2022) Pathologist [facility] Annual BMP Blood Test Abstracted Historical Provider HEALTH MAINTENANCE Final Result * HIV Screening (11/23/2022) [facility] HIV Screening Abstracted Historical Provider HEALTH MAINTENANCE Final Result * Hepatitis C Screening (11/23/2022) Hepatitis C Screening Abstracted us Historical Provider HEALTH MAINTENANCE Final Result from Last 3 Months or Most Recently Relevant to Health Maintenance Insurance [facility] HE[facility] MEDICAID - [place] Care Teams Sifter And Miller Relationship Specialty Start Date End Date Kimmie Wisdom MD [address] [place] [address] , [address] [facility] Physician Associ D/B/A: [facility] LAUREN Penny PCP - General Internal Medicine 04/23/24
== END 2024-12-07 10:42 | disposition home or self-care (01) ==
LOC: HO.MAMMO 10:41
PROVIDERS: PCP Internal Medicine; Visit Provider Internal Medicine
DX: Z12.31 Encounter for screening mammogram for malignant neoplasm of breast (principal)
CPT/HCPCS: 77063; 77067

== ENCOUNTER → 2024-12-07 11:00 | Outpatient (BNV) | payer OTHER, SELFPAY | PROVIDERS: PCP Internal Medicine; Visit Provider Internal Medicine | DX: Z12.31 Encounter for screening mammogram for malignant neoplasm of breast (principal) | CPT/HCPCS: 77063; 77067 ==

== ENCOUNTER 2024-12-25 09:24 | Outpatient (AMB) | payer OTHER, SELFPAY ==
--- NOTE | 2024-12-25 09:30 | A.OFFVIS_ITS ---
Vital Signs 12/25/24 09:48 Height 5 ft 3 in Weight 182 lb BMI 32.2 Intake Visit Reasons: OV-Lt distal 3rd phalanx fx DOI: 08/27/24-w/xrays Intake Note: Salena is a 58 year old right hand dominant Georgian speaking woman who presents today for a follow up for her mallet deformity of left middle finger status post volleyball accident, DOI: ~08/27/24. At her last visit with Dr Low, she was given a new metal straight splint to wear and continue with splinting. She will work on MCP & PIP joint ROM while wearing her splint. At this visit, anticipation to discontinue splinting. Today patient states she continues to wear her splint 8 hours during the day. Patient reports stiffness and limit ROM when making a fist. Allergies hazelnut (HAZELNUT) Allergy (Severe, Verified 12/25/24 09:52) ANGIOEDEMA, NUMBNESS ibuprofen (From MOTRIN) Allergy (Severe, Verified 12/25/24 09:52) RASH, FACIAL SWELLING, anaphylaxis, face swelling peanut (PEANUT) Allergy (Severe, Verified 12/25/24 09:52) SWELLING tramadol Allergy (Severe, Verified 12/25/24 09:52) rash hydrocodone Allergy (Mild, Verified 12/25/24 09:52) Redness of Skin HPI HPI OV-Lt distal 3rd phalanx fx DOI: 08/27/24-w/xrays: Details: Salena is a 59 year old right hand dominant Georgian speaking woman who returns for her left middle finger mallet deformity, S/P Volleyball injury, DOI: 08/27/24. She says she jammed her finger while playing Volleyball. She says she has been wearing her current finger splint as instructed, and she has noticed a good improvement in her finger. She says her finger is looking straight and the PIP joint mass has improved. She appreciates only some mild stiffness & limited ROM when making a fist. She denies any pain. She denies any numbness or tingling. COUNTS INCLUDE 234 BEDS AT THE [facility] Medical History Arthritis Asthma GERD without esophagitis Left lateral epicondylitis Bilateral acromioclavicular joint arthritis Lumbar degenerative disc disease Degenerative disc disease, cervical Obesity (BMI 30-39.9) Surgical History History of laparoscopic cholecystectomy (07/21/23) History of colonoscopy History of tubal ligation History of section Family History Father No problems noted. 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 Sexual orientation: Straight/Heterosexual Gender identity: Female Cognitive needs: No Hearing needs: No Vision needs: Yes Female Reproductive History Menstrual Age of Menarche: 13 Review of Systems Const All systems reviewed & are unremarkable except as noted in HPI and below Physical Exam Vital Signs: BMI result Body Mass Index 32.2 Const General: no acute distress and alert Orientation/consciousness: patient oriented x3 Neuro General: patient oriented x3 Extrem Other: Evaluation of Left Upper Extremity: The patient is alert, oriented, and in no acute distress Cap refill brisk ROM: She can make a fist and extend all her digits Stiffness in the PIP joints is only mild. Skin of the dorsum of the DIP joint appears healed, no erythema or maceration Transverse ridge on nail, appears intermediate grown out. Radiographs: 3 views of the left hand from 09/19/24 were reviewed by me today in clinic. They show a dorsal base avulsion fracture of the middle finger distal phalanx with satisfactory fracture alignment & good interval bony healing. She has some arthritic changes to the dorsal base of the index finger. Psych Appearance: grossly normal Affect: normal affect Attitude: cooperative Assessment & Plan Assessment & Plan (1) Mallet deformity of left middle finger: Code(s): M20.012 - Mallet finger of left finger(s) Category: Medical Plan Assessment & Plan: 1. Left middle finger mallet deformity, corrected Following 6 weeks of 24 hour splinting, and then 6 weeks of 8 hour splinting 2. Left middle finger distal phalanx dorsal base avulsion fracture S/P Volleyball accident, DOI: ~08/27/24 I educated her about this condition She appears to have recovered very well. She may resume all activities, including work, as tolerated. She will follow up prn Scribed for Cristina Low MD by Cristi Chang, director medical, on 12/25/24 at 10:00 AM, EST. Coding Level of Care Code Est Pt Level 3 (10989) Diagnoses Mallet deformity of left middle finger M20.012
[2024-12-25 09:48] VITALS: BMI 32.2
--- OUTSIDE RECORDS SUMMARY | 2024-12-25 10:19 | XMS_ITS | Clinical Summary ---
Author Organization [address] [facility] Address [address] [place] [address] Phone Care Team Providers Care Geophysical Prospector Name Role Phone Kimmie Wisdom MD Primary Care Provider [phone] Allergies Active Allergy Reactions Criticality Noted Date [...] micheline r depressive disorder without prior episode ([facility] V24) 04/19/2023 Mixed hyperlipidemia 12/14/2022 Controlled type 2 diabetes m ellitus without complication, without long-term current use of insulin ([facility] V24, [facility] V28) 12/14/2022 Gastroesophageal reflux disease 11/23/2022 Immunizations Immunization Administration Dates Next Due Tdap Tetanus diptheria [...] Health Maintenance Due Date Last Done Comments Colorectal Cancer Screening: Colonoscopy 1965 Diabetes: Annual Foot Exam 11/10/1975 Hepatitis B Vaccines (1 of 3 - 19+ 3-dose series) 1984 Pneumococcal Vaccine: 50+ Years (1 of 2 - PCV) 1984 Zoster Vaccines (1 of 2) 11/10/2015 Diabetes: Annual GFR (Glomerular Filtration Rate) 11/24/2023 11/23/2022, 11/23/2022 Diabetes: Annual Retina Eye Exam 12/23/2023 12/22/2022 Depression Screening 03/14/2024 Social Influencers of Health Screening 04/24/2024 Diabetes: [...] % Blood Venous blood specimen / Unknown [facility] Provider LAB BLOOD ORDERABLES Annabella l Result * (ABNORMAL) Lipid panel (04/29/2023) Triglycerides 121 <=150 mg/dL Cholesterol 204(A) 0 - 200 mg/dL HDL 48 37 - 92 mg/dL LDL Cholesterol 132(A) 50 - 130 mg/dL Blood Venous blood specimen / Unknown Result [facility] Provider LAB BLOOD ORDERABLES Annabella l Result * Cervical Cancer Screening: HPV (01/20/2023) Cervical Cancer Screening: HPV Negative, Abstracted Result [facility] Provider HEALTH MAINTENANCE Final Result * MAMMOGRAM [...] on 01/04/2023 3:45 PM. Workstation Name - [id number] Procedure Note Jaycee Chakraborty MD - 04/19/2023 [...] MD on 01/04/2023 3:45PM. Workstation Name - [id number] Dev Paige DO IMG BI PROCEDURES Final Result * Diabetes Eye Exam (12/22/2022) [facility] Diabetes: Annual Retina Eye Exam Abstracted Historical Provider HEALTH MAINTENANCE Final Result * Annual BMP Blood Test (11/23/2022) Pathologist [facility] Annual BMP Blood Test Abstracted Historical Provider HEALTH MAINTENANCE Final Result * HIV Screening (11/23/2022) [facility] HIV Screening Abstracted Historical Provider HEALTH MAINTENANCE Final Result * Hepatitis C Screening (11/23/2022) Hepatitis C Screening Abstracted us Historical Provider HEALTH MAINTENANCE Final Result from Last 3 Months or Most Recently Relevant to Health Maintenance Insurance [facility] HEALTH PLAN MEDICAID - [place] Care Teams Geophysical Prospector Relationship Specialty Start Date End Date Kimmie Wisdom MD [address] [place] [address] , [address] [facility] Physician Associ D/B/A: [facility] LAUREN Penny PCP - General Internal Medicine 04/23/24
== END 2024-12-25 10:25 | disposition home or self-care (01) ==
LOC: HO.HOS 09:25
PROVIDERS: PCP Internal Medicine; Visit Provider Orthopaedic Surgery
DX: M20.012 Mallet finger of left finger(s) (principal)
CPT/HCPCS: 99024

== ENCOUNTER → 2024-12-25 09:24 | Outpatient (BNVA) | payer OTHER, SELFPAY | PROVIDERS: PCP Internal Medicine; Visit Provider Orthopaedic Surgery | DX: M20.012 Mallet finger of left finger(s) (principal) | CPT/HCPCS: 99212 ==

== ENCOUNTER 2025-01-21 09:46 | Outpatient (REF) | payer OTHER, SELFPAY ==
[2025-01-21 12:02] LABS: Resp Syncy Virus RNA Qual PCR NEGATIVE (Negative); SARS COV2 PCR INHOUSE NEGATIVE (Negative)
== END 2025-01-21 09:47 | disposition home or self-care (01) ==
LOC: HO.LAB 09:46
PROVIDERS: PCP Internal Medicine; Visit Provider Student in an Organized Health Care Education/Training Program
DX: J06.9 Acute upper respiratory infection, unspecified (principal)
CPT/HCPCS: 87637; 96127; 99212

== ENCOUNTER 2025-01-30 18:11 | Emergency (ER) | payer OTHER, SELFPAY ==
[2025-01-30 18:34] VITALS: BP 117/69; PULSE 89; RESP 18; TEMP 36.9; O2SAT 98; BMI 31.6
--- NOTE | 2025-01-30 18:34 | ED_ITS ---
HPI - Headache General Chief Complaint: Headache Stated Complaint: headache Time Seen by Provider: 01/30/25 21:39 Source: patient Mode of arrival: ambulatory Limitations: no limitations History of Present Illness ED Provider: Dr. Yesika Mckeon HPI Narrative: Patient comes to the emergency room complaining of a headache for a 1 week. Patient states the headache is in the front both sides. Patient states it started after she took a course of prednisone for asthma exacerbation. Patient denies any shortness of breath. Patient states that she has been taking Tylenol around the clock to help with the headache but it is not improving. Patient states that she is allergic, gets anaphylactic reaction to ibuprofen. Patient complaining of nausea, no vomiting or diarrhea, complaining of photophobia, denies blurred vision. Denies any neck pain, denies fever or chills Related Data Previous Rx's ?Medication ?Instructions ?Recorded Ventolin HFA 90 mcg/actuation 2 puff inhalation Q6H HI N 06/09/23 aerosol inhaler (albuterol sulfate) shortness of breat h or wheezing 30 days #8 grams cetirizine 10 mg tablet (All Day 10 mg PO DAILY PRN al lergy 06/09/23 Allergy (cetirizine)) symptoms 30 days #30 tabs zolpidem 5 mg tablet 5 mg PO BEDTIME PRN insomnia 30 08/23/23 days #30 tabs pregabalin 25 mg capsule 25 mg PO BEDTIME 30 days #30 caps 10/27/23 lidocaine 5 % topical patch 1 patch topical DAILY 30 d ays #30 04/04/24 ea bupropion HCl 150 mg 24 hr tablet, 150 mg PO QAM 90 da ys #90 tabs 08/20/24 extended release peg 3350-electrolytes 236 240 ml PO Q10M colonoscopy # 4,000 11/21/24 gram-22.74 gram-6.74 gram-5.86 mL gram solution (Golytely) omeprazole 20 mg capsule,delayed 20 mg PO DAILY #90 ca ps 12/10/24 release acetaminophen 500 mg tablet 1,000 mg (2 x 500 mg) PO Q 8H PRN 01/21/25 pain or fever #90 tabs guaifenesin 600 mg tablet, 600 mg PO Q12H PRN congesti on #30 01/21/25 extended release 12 hr (Mucinex) tabs oxymetazoline 0.05 % nasal spray 2 spray intranasal Q1 2H PRN nasal 01/21/25 (12 Hour Nasal [place]) congestion 3 days #15 mL prednisone 20 mg tablet 40 mg (2 x 20 mg) PO DAILY # 10 tabs 01/21/25 triamcinolone acetonide 0.025 % 1 appl topical BID ecz tom #15 grams 01/21/25 topical ointment metoclopramide HCl 5 mg tablet 5 mg PO Q8H PRN nausea and 01/30/25 (Reglan) vomiting #5 tabs oxycodone 5 mg tablet 5 mg PO TID PRN pain #5 tabs 01/30/25 Allergies Allergy/AdvReac Type Severity Reaction Status Date / Time hazelnut (HAZELNUT) Allergy Severe ANGIOEDEMA, Verified 01/30/25 18:37 NUMBNESS ibuprofen (From MOTRIN) Allergy Severe RASH, Verified 01/30/25 18:37 FACIAL SWELLING, anaphylaxis, face swelling peanut (PEANUT) Allergy Severe SWELLING Verified 01/30/25 18:37 tramadol Allergy Severe rash Verified 01/30/25 18:37 hydrocodone Allergy Mild Redness of Verified 01/30/25 18:37 Skin Review of Systems 2 Review of Systems: Constitutional : No Weight loss, No Fever, No Chills, No Night Sweats, No Fatigue, No Malaise ENT/Mouth : No Hearing loss, No Ear Pain, No Nasal Congestion, No Sinus Pain, No Hoarseness, No sore throat, No Rhinorrhea, No Swallowing Difficulty Eyes: Complaining of photophobia, No Eye Pain, No Swelling, No Redness, No Foreign Body, No Discharge, No Vision Changes Cardiovascular : No Chest Pain, No SOB, No Dyspnea on Exertion, No Orthopnea, No Edema, No Palpitations Respiratory : No Cough, No Sputum, No Wheezing, No Smoke Exposure, No Dyspnea Gastrointestinal : No Nausea, No Vomiting, No Diarrhea, No Constipation, No abdominal Pain, No Hematochezia, No Melena Genitourinary : no irregular bleeding, No Dysuria, No Urinary Frequency, No Hematuria, No Urinary Incontinence, No Urgency, No Flank Pain, No Urinary Flow Changes, No Hesitancy Musculoskeletal : No joint pain, No Myalgias, No Joint Swelling Skin : No Skin Lesions, No rash Neuro : No Weakness, No Numbness, No Paresthesias, No Loss of Consciousness, No Dizziness, complaining of Headache Psych : No Anxiety/Panic, No Depression, No SI/HI/AH/VH, No Social Issues, Heme/Lymph: No Bruising, No Bleeding,No Lymphadenopathy Endocrine : No Polyuria, No Polydipsia, No Temperature Intolerance PMF Past Medical History Medical History Arthritis Asthma GERD without esophagitis Left lateral epicondylitis Bilateral acromioclavicular joint arthritis Lumbar degenerative disc disease Degenerative disc disease, cervical Obesity (BMI 30-39.9) Surgical History History of laparoscopic cholecystectomy (07/21/23) History of colonoscopy History of tubal ligation History of section Family History Family History Father No problems noted. Mother Breast cancer Uterine cancer Maternal Aunt Breast cancer Maternal Grandmother Breast cancer Social History Social History Housing: Apartment Alcohol intake: current Alcohol intake frequency: does not drink Alcohol type: wine Comment: counts correct Patient Tobacco Use Status: Never used Tobacco Tobacco use type: Cigarette Smoked in Last 30 Days: No e-Cigarette/Vaping Use: Never Used Second Hand Smoke Exposure: No Use of substances other than those prescribed or required for medical reasons: No Advance Directives: No Advance Directives Information Provided: No service: No Current occupational status: unemployed and disabled 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 Oriented X3. Patient looks uncomfortable Eyes: Pupils equal, round and reactive to light. Patient has photophobia ENT: Pharynx normal. Neck: Normal inspection. Neck supple. No lymph nodes noted. No crepitus CVS: Normal heart rate and rhythm. Pulses normal. Normal S1 and S2 Respiratory: No respiratory distress. Breath sounds normal. No Wheezing. No rales Abdomen: Soft and nontender. No rigidity. No distention. Skin: Skin warm and dry. Normal skin color. Normal skin turgor. Extremities: No lower extremity edema. No Lacerations. No Rash Neuro: Oriented X 3. No motor deficit. No sensory deficit. Moving all extremities. No slurred speech. CN 2 through 12 grossly intact Psych: calm, cooperative, normal affect Vital Signs: Vital Signs: Last Vital Signs Temp 98.4 F 01/30/25 19:55 Pulse 89 01/30/25 19:55 Resp 20 01/30/25 19:55 BP 134/77 01/30/25 19:55 Pulse Ox 97 01/30/25 19:55 O2 Del Method Room Air 01/30/25 19:55 BMI result Body Mass Index 31.6 Course Course Course Narrative: This is a Rapid Medical Exam performed in triage by Lachelle Dan PA-C. Full HPI, ROS and PE to be performed by primary ED provider. 59-year-old female with a past medical history of asthma, GERD, presenting to the ED c/o OATES x 1 week. Describes pressure in head & eyes w/nausea. Taking Tylenol w/o relief. OATES NOT maximal at onset. PE: +photophobia, NAD, no focal deficits. Ambulating with steady gait Plan: viral testing Medications Administered Discontinued Medications Generic Name Dose Route Start Last Admin Trade Name Freq PRN Reason Stop Dose Admin Diphenhydramine HCl 25 mg 01/30/25 22:09 01/30/25 22:55 Diphenhydramine Hcl 50 Mg/Ml Vial IVPUSH 01/30/25 22:10 25 mg ONCE ONE Administration Sodium Chloride 1,000 mls @ 999 mls/hr 01/30/25 22:09 01/30/25 23:51 Ns IVCONT 01/30/25 23:09 Infused .Q1H1M ONE Infusion Metoclopramide HCl 10 mg 01/30/25 22:09 01/30/25 22:55 Metoclopramide Hcl 10 Mg/2 Ml Vial IVPUSH 01/30/25 22:10 10 mg ONCE ONE Administration Morphine Sulfate 2 mg 01/30/25 22:09 01/30/25 22:55 Morphine Sulfate 4 Mg/Ml Cartridge IVPUSH 01/30/25 22:10 2 mg ONCE ONE Administration Protocol Medical Decision Making Medical Decision Making [facility] Narrative: My interpretation of labs: Patient's white blood cell count 11.4, likely reactive leukocytosis secondary to taking prednisone. Chemistry within normal limits, serology negative for RSV , influenza and COVID. Patient receiving IV fluids, IV metoclopramide, morphine and Benadryl. After the above-mentioned medication, patient states that her headache complete resolved. Differential Diagnosis Differential Diagnoses: The differential diagnosis associated with the presentation includes (Tension headache, migraine headache, medication side- effect) Admission/Observation Consideration of admission/observation: Escalation of care including admission/observation considered (Given patient's level of discomfort and length of symptoms, observation has been considered) Lab Data MDM Lab Attestation statement: I reviewed the patient's lab results. 01/30/25 18:51 01/30/25 18:51 Labs: Lab Results 01/30/25 Range/Units 18:51 WBC 11.4 H (4.8-10.8) X10*3/uL RBC 4.76 (4.20-5.50) X10*6/uL Hgb 14.4 (12.0-16.0) g/dl Hct 43.3 (37.0-47.0) % MCV 91.0 (80.0-98.0) fL MCH 30.3 (27.0-33.0) pg MCHC 33.3 (31.0-35.0) g/dl RDW 12.2 (11.0-16.0) % Plt Count 238 (160-400) X10*3/uL MPV 11.3 (9.4-12.3) fL Immature Gran % (Auto) 0.5 H (0.0-0.4) % Neut % (Auto) 75.6 H (45-73) % Lymph % (Auto) 16.6 L (20-40) % Lamar % (Auto) 5.7 (2-11) % Eos % (Auto) 1.2 (0-4) % Baso % (Auto) 0.4 (0-2) % Lymph # (Auto) 1.9 (1.2-4.9) X10*3/uL Lamar # (Auto) 0.7 (0.1-1.2) X10*3/uL Eos # (Auto) 0.1 (0.0-0.4) X10*3/uL Baso # (Auto) 0.0 (0.0-0.2) X10*3/uL Abs Immat Gran (auto) 0.06 H (0.00-0.03) X10*3/uL Absolute Neuts (auto) 8.6 H (2.0-8.3) x10*3/uL Absolute Nucleated RBC 0.000 (0.0-0.012) X10*3/uL Nucleated RBC % (auto) 0.0 (0.0-0.2) /100WBC Sodium 138 (135-145) mmol/L Potassium 4.1 (3.3-5.1) mmol/L Chloride 100 (96-108) mmol/L Carbon Dioxide 27 (22-29) mmol/L Anion Gap 15 (12-20) BUN 11 (9-16) mg/dL Creatinine 0.95 (0.5-1.4) mg/dL Estim Creat Clear Calc 64.3 Estimated GFR > 60 Random Glucose 191 H (60-115) mg/dL Calcium 9.6 (8.4-10.2) mg/dL Influenza Type A (PCR) NEGATIVE (Negative) Influenza Type B (PCR) NEGATIVE (Negative) RSV RNA Qual (PCR) NEGATIVE (Negative) SARS-CoV-2 RNA (RT-PCR) NEGATIVE (Negative) Tests considered The following testing was considered but not selected: I considered ordering a CT scan of the head. However, patient does not have any neurological deficits and is improving with the above-mentioned medication. Critical Care Time Critical Care Time Critical Care Time: Yes Total Critical Care Time: 35 Attestation: I have personally provided critical care time. Time includes review of lab data, radiology results, discussion with consultants, and monitoring for potential decompensation. Intervention performed as documented. Discharge Plan Discharge Clinical Impression: Headache Patient Disposition: Home, Self-Care Instructions: Acute Headache (ED) Additional Instructions: Please follow-up with your primary care physician tomorrow. If you have any worsening or new symptoms, please return to the emergency room or call 911 Prescriptions: New oxycodone 5 mg tablet 5 mg PO TID PRN (Reason: pain) Qty: 5 0RF Rx Instructions: Partial Fill upon patient request. metoclopramide HCl [Reglan] 5 mg tablet 5 mg PO Q8H PRN (Reason: nausea and vomiting) Qty: 5 0RF No Action bupropion HCl 150 mg tablet extended release 24 hr 150 mg PO QAM 90 Days Qty: 90 0RF omeprazole 20 mg capsule,delayed release(DR/EC) 20 mg PO DAILY Qty: 90 0RF albuterol sulfate [Ventolin HFA] 90 mcg/actuation HFA aerosol inhaler 2 puff inhalation Q6H PRN (Reason: shortness of breath or wheezing) 30 Days Qty: 8 1RF cetirizine [All Day Allergy (cetirizine)] 10 mg tablet 10 mg PO DAILY PRN (Reason: allergy symptoms) 30 Days Qty: 30 1RF pregabalin 25 mg capsule 25 mg PO BEDTIME 30 Days Qty: 30 0RF zolpidem 5 mg tablet 5 mg PO BEDTIME PRN (Reason: insomnia) 30 Days Qty: 30 0RF Rx Instructions: may repeat once if no response in 30-60 minutes peg 3350-electrolytes [Golytely] 236-22.74-6.74 -5.86 gram recon soln 240 ml PO Q10M Qty: 4000 0RF Rx Instructions: as per split prep instructions, until fecal effluent is clear lidocaine 5 % adhesive patch,medicated 1 patch topical DAILY 30 Days Qty: 30 0RF Rx Instructions: leave on most painful area for up to 12 hrs prednisone 20 mg tablet 40 mg PO DAILY Qty: 10 0RF triamcinolone acetonide 0.025 % ointment 1 appl topical BID Qty: 15 0RF oxymetazoline [12 Hour Nasal [place]] 0.05 % spray,non-aerosol 2 spray intranasal Q12H PRN (Reason: nasal congestion) 3 Days Qty: 15 0RF guaifenesin [Mucinex] 600 mg tablet extended release 12hr 600 mg PO Q12H PRN (Reason: congestion) Qty: 30 0RF acetaminophen 500 mg tablet 1,000 mg PO Q8H PRN (Reason: pain or fever) Qty: 90 0RF Print Language: [place] Citizen
[2025-01-30 19:04] LABS: MANUAL DIFF FLAG NO
[2025-01-30 19:05] LABS: Hematocrit 43.3 % (37.0-47.0); Hemoglobin 14.4 g/dl (12.0-16.0); Imm Gran Abs Auto 0.06 X10*3/uL (0.00-0.03); Imm Gran Pct Auto 0.5 % (0.0-0.4); Lymphocytes Absolute Auto 1.9 X10*3/uL (1.2-4.9); Mean Corpuscular HGB Conc 33.3 g/dl (31.0-35.0); Mean Corpuscular Hemoglobin 30.3 pg (27.0-33.0); Mean Corpuscular Volume 91.0 fL (80.0-98.0); NRBC Abs Auto 0.000 X10*3/uL (0.0-0.012); NRBC Pct Auto 0.0 /100WBC (0.0-0.2); Platelet Count 238 X10*3/uL (160-400); Red Blood Count 4.76 X10*6/uL (4.20-5.50); White Blood Count 11.4 X10*3/uL (4.8-10.8)
[2025-01-30 19:22] LABS: Anion Gap 15 (12-20); Blood Urea Nitrogen 11 mg/dL (9-16); Calcium 9.6 mg/dL (8.4-10.2); Carbon Dioxide 27 mmol/L (22-29); Chloride 100 mmol/L (96-108); Creatinine Clr Calc Pharmacy 64.3; Estimated Glomerular Filt Rate > 60; Potassium 4.1 mmol/L (3.3-5.1); Sodium 138 mmol/L (135-145)
[2025-01-30 19:54] LABS: Resp Syncy Virus RNA Qual PCR NEGATIVE (Negative); SARS COV2 PCR INHOUSE NEGATIVE (Negative)
[2025-01-30 19:55] VITALS: BP 134/77; PULSE 89; RESP 20; TEMP 36.9; O2SAT 97
--- NOTE | 2025-01-30 20:00 | PC.NURSE ---
Pt is a&ox4, no signs of distress. Pt reports a headache x 2 wks after being started on predisone for asthma Pt also reporting nausea and eye pain Plan of care ongoing.
--- NOTE | 2025-01-30 23:03 | PC.NURSE ---
Pt medicated per [facility] Plan of care ongoing.
[2025-01-30 23:57] VITALS: BP 128/65; PULSE 95; RESP 16; TEMP 36.8; O2SAT 97
[2025-01-31] VITALS: BP 128/65; PULSE 95; RESP 16; TEMP 36.8; O2SAT 97
== END 2025-01-31 00:08 | disposition home or self-care (01) ==
PROVIDERS: Physician Assistant; Emergency Provider Emergency Medicine; PCP Internal Medicine
DX: R51.9 Headache, unspecified (principal); J45.909 Unspecified asthma, uncomplicated; K21.9 Gastro-esophageal reflux disease without esophagitis; Z03.818 Encounter for observation for suspected exposure to other biological agents ruled out; R11.0 Nausea; H53.149 Visual discomfort, unspecified
CPT/HCPCS: 80048; 85025; 87637; 96361; 96374; 96375; 99284; J1200; J2270; J2765

== ENCOUNTER 2025-02-13 12:47 | Outpatient (REF) | payer OTHER, SELFPAY ==
--- OUTSIDE RECORDS SUMMARY | 2025-02-13 17:31 | XMS_ITS | Clinical Summary ---
Author Organization [address] [facility] Address [address] [place] [address] Phone Care Team Providers Care Equipment Cleaner Name Role Phone Kimmie Wisdom MD Primary Care Provider [phone] Allergies Active Allergy Reactions Criticality Noted Date [...] without prior episode ([facility] V24) 04/19/2023 Mixed hyperlipidemia 12/14/2022 Controlled type 2 diabetes m ellitus without complication, without long-term current use of insulin ([facility] V24, [facility] V28) 12/14/2022 Gastroesophageal reflux disease 11/23/2022 [...] Years (1 of 2 - PCV) 1984 RSV Immunization Adult Patients (1 - Risk 50-74 years 1-dose series) 11/10/2015 Zoster Vaccines (1 of 2) 11/10/2015 Diabetes: Annual GFR (Glomerular Filtration Rate) 11/24/2023 11/23/2022, 11/23/2022 Diabetes: Annual Retina Eye Exam 12/23/2023 12/22/2022 Depression Screening 03/14/2024 Social Influencers of Health Screening 04/24/2024 Diabetes: Annual Urine Albumin-Creatinine Ratio (uACR) 06/01/2024 Diabetes: Blood Sugar Contro l Test (HGBA1C) 06/01/2024 04/29/2023, 04/29/2023, 11/23/2022 COVID-19 Vaccine ( - 2024-2 6 season) 2024 Influenza Vaccine (#1) 2024 Breast [...] Blood Venous blood specimen / Unknown Result [facility] Provider LAB BLOOD ORDERABLES Annabella l Result * Cervical Cancer Screening: HPV (01/20/2023) Cervical Cancer Screening: HPV Negative, Abstracted Result [facility] Provider HEALTH MAINTENANCE Final Result * [...] on 01/04/2023 3:45 PM. Workstation Name - [id number] Procedure Note Jaycee Chakraborty MD - 04/19/2023 [...] MD on 01/04/2023 3:45PM. Workstation Name - [id number] Dev Paige DO IMG BI PROCEDURES Final Result * Diabetes Eye Exam (12/22/2022) Pathologist [facility] [place] Diabetes: Annual Retina Eye Exam Abstracted Historical Provider HEALTH MAINTENANCE Final Result * Annual BMP Blood Test (11/23/2022) Pathologist [facility] Annual BMP Blood Test Abstracted Historical Provider HEALTH MAINTENANCE Final Result * HIV Screening (11/23/2022) Pathologist [facility] [place] HIV Screening Abstracted Historical Provider HEALTH MAINTENANCE Final Result * Hepatitis C Screening (11/23/2022) Hepatitis C Screening Abstracted us Historical Provider HEALTH MAINTENANCE Final Result from Last 3 Months or Most Recently Relevant to Health Maintenance Insurance HE[employer] [place]AN [place]ICA[place] - [place] Care Teams Equipment Cleaner Relationship Specialty Start Date End Date Kimmie Wisdom MD [address] [place] [address] , [address] [facility] D/B/A: Zohaib Castilloatiisael In Internal Medicine LAUREN Penny PCP - General Internal Medicine 04/23/24
[2025-02-13 22:48] LABS: Bacterial Vaginosis PCR POSITIVE (Negative); Candida Group PCR NOT DETECTED (Not Detect); Candida glab krusei PCR NOT DETECTED (Not Detect); Trichomonas vaginalis PCR NOT DETECTED (Not Detect)
[2025-02-13 23:32] LABS: CT PCR NOT DETECTED (Not Detect.); NG PCR NOT DETECTED (Not Detect.)
== END 2025-02-13 12:48 | disposition home or self-care (01) ==
LOC: HO.LNP 12:47
PROVIDERS: PCP Internal Medicine; Visit Provider Advanced Practice Midwife
DX: Z01.419 Encounter for gynecological examination (general) (routine) without abnormal findings (principal); Z11.51 Encounter for screening for human papillomavirus (HPV); Z78.0 Asymptomatic menopausal state; B35.9 Dermatophytosis, unspecified; Z20.2 Contact with and (suspected) exposure to infections with a predominantly sexual mode of transmission; Z98.51 Tubal ligation status
CPT/HCPCS: 81515; 87491; 87591; 87626; 88175

== ENCOUNTER 2025-02-13 12:47 | Outpatient (AMB) | payer OTHER, SELFPAY ==
--- NOTE | 2025-02-13 12:50 | A.OFFVIS_ITS ---
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 Allergies hazelnut (HAZELNUT) Allergy (Severe, Verified 02/01/25 13:43) ANGIOEDEMA, NUMBNESS ibuprofen (From MOTRIN) Allergy (Severe, Verified 02/01/25 13:43) RASH, FACIAL SWELLING, anaphylaxis, face swelling peanut (PEANUT) Allergy (Severe, Verified 02/01/25 13:43) SWELLING tramadol Allergy (Severe, Verified 02/01/25 13:43) rash hydrocodone Allergy (Mild, Verified 02/01/25 13:43) Redness of Skin Medication List - Last Reconciled 02/13/25 by Lisa Ernandez CNM acetaminophen 1,000 mg (2 x 500 mg) PO Q8H PRN bupropion HCl XL 150 mg PO QAM 90 days cetirizine (All Day Allergy (cetirizine)) 10 mg PO DAILY PRN 30 days lidocaine 5% 1 patch topical DAILY 30 days metoclopramide HCl (Reglan) 5 mg PO Q8H PRN omeprazole 20 mg PO DAILY peg 3350-electrolytes 236-22.74-6.74 -5.86 gram (Golytely) 240 mL PO Q10M pregabalin 25 mg PO BEDTIME 30 days sumatriptan succinate 50 mg PO Q2-4H PRN triamcinolone acetonide 0.025% 1 appl topical BID Ventolin HFA 90 mcg/actuation (albuterol sulfate) 2 puffs inhalation Q6H PRN 30 days NS zolpidem 5 mg PO BEDTIME PRN 30 days HPI HPI [employer] annual exam: Details: 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 She got a couple of years ago so she has not had sex with anybody since her . She is open to testing but not really worried about anything she is due for Pap smear. She had her mammogram in November and it was good. She is on disability for her back pain and shoulder pain and neck pain and rib pains. [facility] Medical History Arthritis Asthma GERD without esophagitis Left lateral epicondylitis Bilateral acromioclavicular joint arthritis Lumbar degenerative disc disease Degenerative disc disease, cervical Obesity (BMI 30-39.9) Surgical History History of laparoscopic cholecystectomy (07/21/23) History of colonoscopy History of tubal ligation History of section Family History Father No problems noted. 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 Sexual orientation: Straight/Heterosexual Gender identity: Female Cognitive needs: No Hearing needs: No Vision needs: Yes Female Reproductive History Menstrual Age of Menarche: 13 control method: permanent sterilization Total pregnancies: 3 Full term: 3 Date of last pap smear: 01/21/20 (negative pap smear,negative hpv ) Date of Mammogram: 12/07/24 (bi rad 1) Physical Exam Const General: healthy appearing, comfortable, no acute distress, well developed and alert Nutritional Appearance: average body habitus Orientation/consciousness: patient oriented x3 Limitations: no limitations HEENT Head: Yes normocephalic Neck Neck: Yes normal visual inspection Chest Chest palpation & inspection: normal inspection of the chest Breast/axilla inspection: normal inspection of the breasts and normal inspection of the axillae Breast/axilla palpation: normal palpation of the breasts and normal palpation of the axillae Resp Effort & Inspection: normal respiratory effort GI Inspection: Yes normal to inspection, No Abdominal wall edema and No distended Palpation (GI): Soft to palpation and nontender Other: External exam within normal limits vagina has atrophic changes thinned mucosa consistent with postmenopausal changes cervix pink nulliparous smooth healthy appearing with healthy scant clear mucus cervix long close thick mobile nontender uterus midposition mobile nontender adnexa nontender good tone with Kegel. General: Yes bladder normal to palpation External Female Exam: normal external appearance and normal appearance of the urethra Speculum Exam - Vagina: normal appearance of the vagina, normal palpation and normal vaginal discharge Speculum Exam - Cervix: normal appearance of the cervix, normal palpation and n ontender Bimanual exam- vagina & uterus: normal bimanual exam, normal palpation, uterine size normal, bladder normal to palpation, consistency normal, normal palpation, uterine mobility normal, uterine shape normal, No Cervical tenderness present, non-tender and no cervical motion tenderness Bimanual Exam- Adnexa, other: normal adnexae, no masses, normal and No adnexal tenderness Skin Other: On patient's right forearm there for ovulate her patches that are PT pink colored with slightly raised borders that are slightly redder, consistent with tinea. Neuro General: patient oriented x3 Assessment & Plan Assessment & Plan (1) Well woman exam with routine gynecological exam: Code(s): Z01.419 - Encounter for gynecological examination (general) (routine) without abnormal findings Category: Medical (2) Routine gynecological examination: Code(s): Z01.419 - Encounter for gynecological examination (general) (routine) without abnormal findings Category: Medical (3) Postmenopausal: Code(s): Z78.0 - Asymptomatic menopausal state Category: Medical (4) Cervical cancer screening: Comment: Last Pap in our system 2020 negative with negative HPV. Code(s): Z12.4 - Encounter for screening for malignant neoplasm of cervix Category: Medical (5) Tinea: Code(s): B35.9 - Dermatophytosis, unspecified Category: Medical Plan -----Discussed in this visit the following: healthy balanced diet, regular and consistent exercise, getting recommended health screens, doing the best she can for her particular health concerns, kegel exercises, pap smear screening and followup recommendations, mammography screening and SBE, normal changes in cycles in her life stage--- . Testing offered for STDs and she accepted with the exam and her Pap smear she has no concerns about anything else. She stopped getting her period about 5 years ago when she was 52 she is not really having any issues with that or with any vaginal problems or symptoms either I inquired about the ovulate circular patches on her right forearm she says they itch her and they burn especially if hot order touches them when she is washing dishes she had gone to urgent care at her doctor's office and she had been given a white cream which she said helped a little bit but not too much and she was told she could only use it for a week that it was very strong. I discussed with her that it appears to be fungal in nature and might benefit from use of antifungal and steroid cream combined sparingly twice a day for 2 weeks and then save the rest for future occurrences if it does not get better or does not resolve she should bring the cream to her doctor in show her what she used and explain the situation and seek a dermatology consult the patches appear to very much to be tinea. Discussed stretches and movement to compensate for her various aches and pains and she does try to stay active and stretch at home. Prescription sent for clotrimazole betamethasone cream with 1 refill. In addition I recommend at the same time using a daily shampoo and body wash cleanse with Selsun Blue shampoo and leave it on everywhere but especially the affected area for 5 minutes during the shower before rinsing off to augment the antifungal benefit. Medications: New clotrimazole-betamethasone 1-0.05 % 1 appl topical BID 45 grams 1RF 2 weeks Coding Level of Care Code Est Pt Prev Care 40-64y(65406) Diagnoses Well woman exam with routine gynecological exam Z01.419 Routine gynecological examination Z01.419 Postmenopausal Z78.0 Cervical cancer screening Z12.4 Tinea B35.9
== END 2025-02-13 13:36 | disposition home or self-care (01) ==
LOC: HO.HWSM 12:48
PROVIDERS: PCP Internal Medicine; Visit Provider Advanced Practice Midwife
DX: Z01.419 Encounter for gynecological examination (general) (routine) without abnormal findings (principal); Z78.0 Asymptomatic menopausal state; Z12.4 Encounter for screening for malignant neoplasm of cervix; B35.9 Dermatophytosis, unspecified
CPT/HCPCS: 99396; 99459